=== PATIENT | female | born 1975 | race African-American/Black ===

== ENCOUNTER 2017-05-14 10:53 | Inpatient (IN) | payer BC, MEDICAID ==
[~2017-05-14] VITALS: Ht 152.4 cm; Wt 52.0 kg
[2017-05-14 11:02] VITALS: Ht 152.4 cm; Wt 52.0 kg
--- NOTE | 2017-05-14 11:26 | ERA ---
ER Documentation Chief Complaint Date/Time DATE: 05/14/17 TIME: 11:25 Chief Complaint Lower back pain HPI The patient is a 41-year-old female, presenting to the ER because of low back pain for 2 days, generalized weakness for 2 days, diarrhea for 2 days. She denies hematemesis, hematochezia.. She denies chest pain, shortness of breath, abdominal pain, vomiting, dysuria. She has intermittent cough for the last 2 days. She smokes socially, denies drink or using illicit drug Past medical/surgical history: None ROS All systems reviewed and are negative except as per history of present illness. Medications Home Meds No Active Prescriptions or Reported Meds Allergies Allergies: Coded Allergies: No Known Allergy (Unverified , 05/14/17) PMhx/Soc Medical and Surgical Hx: Unable to obtain Hx Alcohol Use: Yes Hx Substance Use: No Hx Tobacco Use: Yes Smoking Status: Current every day smoker Physical Exam Vitals Vital Signs Date Time Temp Pulse Resp B/P Pulse Ox O2 Delivery O2 Flow Rate FiO2 05/14/17 15:10 98.1 93 20 122/70 88 05/14/17 13:13 98.1 108 20 126/70 88 05/14/17 12:06 3 05/14/17 11:02 98.1 133 20 122/84 88 Physical Exam Const: No acute distress. Head: Atraumatic. Eyes: Normal Conjunctiva. ENT: Normal External Ears, Nose and Mouth. Neck: Full range of motion. No meningismus. Resp: Tachypneic,decreased breath sound on the left lower lungs Cardio: Regular tachycardic Abd: Soft, non distended, normal bowel sounds, non tender. Left CVA tenderness Skin: No petechiae or rashes. Back: No midline or flank tenderness. Ext: No cyanosis, or edema. Neur: Awake and alert. No focal deficit Psych: Normal Mood and Affect. Result Diagram: 05/14/17 1150 05/14/17 1150 Results 24 hrs Laboratory Tests Test 05/14/17 11:50 05/14/17 12:20 White Blood Count 13.310^3/ul Red Blood Count 4.7310^6/ul Hemoglobin 12.9g/dl Hematocrit 41.3% Mean Corpuscular Volume 87.3fl Mean Corpuscular Hemoglobin 27.3pg Mean Corpuscular Hemoglobin Concent 31.2g/dl Red Cell Distribution Width 14.3% Platelet Count 96593^3/UL Mean Platelet Volume 9.6fl Neutrophils % 79.9% Lymphocytes % 10.5% Monocytes % 8.4% Eosinophils % 0.2% Basophils % 0.5% Nucleated Red Blood Cells % 0.0/100WBC Neutrophils # 10.610^3/ul Lymphocytes # 1.410^3/ul Monocytes # 1.110^3/ul Eosinophils # 0.010^3/ul Basophils # 0.110^3/ul Nucleated Red Blood Cells # 0.010^3/ul Prothrombin Time 13.7Sec Prothrombin Time Ratio 1.1 INR International Normalized Ratio 1.05 Activated Partial Thromboplast Time 38.1Sec Sodium Level 139mmol/L Potassium Level 4.4mmol/L Chloride Level 96mmol/L Carbon Dioxide Level 30mmol/L Anion Gap 17 Blood Urea Nitrogen 7mg/dl Creatinine 0.69mg/dl Glucose Level 91mg/dl Lactic Acid Level 2.1mmol/L Calcium Level 9.9mg/dl Total Bilirubin 0.2mg/dl Direct Bilirubin 0.00mg/dl Indirect Bilirubin 0.2mg/dl Aspartate Amino Transf (AST/SGOT) 44IU/L Alanine Aminotransferase (ALT/SGPT) 29IU/L Alkaline Phosphatase 207IU/L Troponin I < 0.012ng/ml Total Protein 8.8g/dl Albumin 4.1g/dl Globulin 4.70g/dl Albumin/Globulin Ratio 0.87 Urine Color YELLOW Urine Clarity SLIGHTLY CLOUDY Urine pH 5.0 Urine Specific [place] 1.004 Urine Ketones 1+mg/dL Urine Nitrite NEGATIVEmg/dL Urine Bilirubin NEGATIVEmg/dL Urine Urobilinogen NEGATIVEmg/dL Urine Leukocyte Esterase 1+Jaden/ul Urine Microscopic RBC 1/HPF Urine Microscopic WBC 5/HPF Urine Squamous Epithelial Cells FEW/HPF Urine Bacteria FEW/HPF Urine Hemoglobin 1+mg/dL Urine Glucose NEGATIVEmg/dL Urine Total Protein NEGATIVEmg/dl Current Medications Medications (Trade) Dose Ordered Sig/Jose Cruz Route PRN Reason Start Time Stop Time Status Last Admin Dose Admin Sodium Chloride 1,610 ml @ 1,610 mls/hr BOLUS X1 ONCE IV 05/14/17 12:00 05/14/17 12:59 DC 05/14/17 12:02 Piperacillin Sod/ Tazobactam Sod 100 ml @ 200 mls/hr ONCE ONCE IVPB 05/14/17 14:00 05/14/17 14:29 DC 05/14/17 14:04 Vancomycin HCl (Vancocin) 250 ml @ 125 mls/hr ONCE IVPB 05/14/17 14:30 05/14/17 16:29 DC 05/14/17 14:35 IV Flush 10 ml 10 ml STK-MED ONCE .ROUTE 05/14/17 15:27 05/14/17 15:28 DC Sodium Chloride 100 ml @ ud STK-MED ONCE .ROUTE 05/14/17 15:27 05/14/17 15:28 DC Iohexol (Omnipaque) 100 ml @ ud STK-MED ONCE .ROUTE 05/14/17 15:27 05/14/17 15:28 DC Lorazepam (Ativan) 0.5 mg ONCE ONCE IV 05/14/17 16:00 05/14/17 16:01 DC 05/14/17 15:51 Procedures/[place] [id number] Radiology Main Line: [phone] DIAGNOSTIC IMAGING REPORT Patient: ERLIN YANCEY : 1975 Age: 41 Sex: F MR #: [id number] DOS: 05/14/17 1133 Ordering MD: MICHELLE GARLAND MD Location: E/R Room/Bed: PROCEDURE: XR Chest. CLINICAL INDICATION: chest pain TECHNIQUE: Single frontal view of the chest was obtained COMPARISON: None FINDINGS: The heart and mediastinum are within normal limits. There are extensive bilateral upper lobe and lower lobe infiltrates. There is a large left pleural effusion and a moderate right pleural effusion. There is no pneumothorax. RPTAT: AA IMPRESSION: Extensive bilateral alveolar infiltrates throughout the lungs. Large left pleural effusion and moderate right pleural effusion. .Florin Montgomery MD, Date Time Electronically viewed and signed by .Florin Montgomery MD, on 05/14/2017 14: 10 .S/ CC: MICHELLE GARLAND MD EKG: Read by emergency physician Rate/Rhythm: Sinus Tachycardia 132 beats/min QRS, ST, T-waves: No ST elevation, no T inversion, low voltage, nonspecific T abnormality Impression: Normal EKG MEDICAL MAKING DECISION: The patient is a 41-year-old female, presenting with acute respiratory failure, acute severe sepsis, acute bilateral pneumonia, acute left pyelonephritis, acute bilateral pleural effusion. She was treated for acute severe sepsis with normosaline 30 mL/kg IV,Zosyn IV, vancomycin IV w/ good response The differential diagnoses considered include but are not limited to asthma, COPD, pneumonia, pulmonary embolus, pleural effusion, congestive heart failure, empyema, malignancy. Admit MDM: Patient's infectious symptoms have not stabilized and the patient is at risk of rapid decompensation. The patient will be admitted for careful hydration, antibiotic therapy, and infectious source control. Severe Sepsis criteria: Infectious source: pna, uti End organ damage indicated by: Lactate > 2.0 mmol/L Acute Resp Failure (sat < 92% w/o oxygen) Sepsis Management: Time of recognition of severe sepsis/septic shock:1:35 pm Within 3 hours of recognition: Blood cultures x 2 before broad-spectrum antibiotics: Yes 30 ml/kg NS bolus completed Initial lactate 2.1 Repeat lactate pending Critical Care: Critical care time 35 minutes excluding billable procedure Emergent fluid management while maintaining close respiratory support. Provision of immediate and broad-spectrum antibiotic therapy. Simultaneous assessment for possible sources in order to direct targeted therapy. Consideration for invasive and chemical support to prevent cardiopulmonary collapse. Septic Shock Assessment: Any lactic acid > 4.0 no Persistent hypotension (SBP < 90 or 40 mmHg drop, MAP < 65) despite 30 mL/kg IV fluid bolusno Departure Diagnosis: Primary Impression: Acute respiratory failure Additional Impressions: Severe sepsis Pyelonephritis Pneumonia Bilateral pleural effusion Condition: Stable Comments I discussed the findings with the patient. I discussed the patient with the on- call hospitalist Dr Hair at 1:40 PM who was made aware of the lab, the treatment, the patient condition. The patient is admitted to [facility] MICHELLE GARALND MD May 14, 2017 11:26
[2017-05-14] MEDS ORDERED: SOD CHLORIDE 0.9% IV ONE (12:00)
[2017-05-14] MEDS ORDERED: PIPER-TAZO 3.375 GM IV (PMX) 100 ML IVPB ONE (14:00)
--- NOTE | 2017-05-14 14:10 | RADRPT ---
PROCEDURE: XR Chest. CLINICAL INDICATION: chest pain TECHNIQUE: Single frontal view of the chest was obtained COMPARISON: None FINDINGS: The heart and mediastinum are within normal limits. There are extensive bilateral upper lobe and lower lobe infiltrates. There is a large left pleural e ffusion and a moderate right pleural effusion. There is no pneumothorax. RPTAT: AA IMPRESSION: Extensive bilateral alveolar infiltrates throughout the lungs. Large left pleural effusion and moderate right pleural effusion. .Florin Montgomery MD, MD Date Time Electronically viewed and signed by .Florin Montgomery MD, on 05/14/2017 14:10 .S/
[2017-05-14] MEDS ORDERED: VANCOMYCIN 1 GM (PMX) 250 ML IVPB SCH (14:30)
[2017-05-14] MEDS ORDERED: IOHEXOL 100 ML ONE (15:27)
[2017-05-14] MEDS ORDERED: SOD CHLORIDE 0.9% 100 ML ONE (15:27)
[2017-05-14] MEDS ORDERED: LORAZEPAM 2 MG INJ IV ONE (16:00)
--- NOTE | 2017-05-14 17:48 | HP ---
Date/Time of Note Date/Time of Note DATE: 05/14/17 TIME: 17:42 Assessment/Plan VTE Prophylaxis VTE Prophylaxis Intervention: SCD's Assessment/Plan Assessment/Plan 41 yo F with no known chronic medical conditions presented with SOB, found to have sepsis (tachycardia + leukocytosis), suspect pulm etiology. PLAN CAP abx with levoflox/azithro check BNP to eval for CHF. trial of lasix given LE edema empiric full ATC, check D Dimer to eval for PE. Consider CT chest tomorrow if pt able to lay flat for study HIV screen given acuity of symptoms NRT DVT prophx HPI/ROS Admit Date/Time Admit Date/Time Hx of Present Illness CC back pain/SOB x 3 days HPI 41 yo F with no known chronic medical problems presents with 3 days of SOB, decreased appetite and bl LBP. Pt denies fevers or chills. Reports fatigue. No chest pain. Also reports some bl LE edema as well Denies any personal hx of asthma or COPD ROS 10p ROS neg except as per HPI PMH/Family/Social Past Medical History Medical History: no pertinent history Social History lives in an apartment, works as a [employer] Smoking Status: Current every day smoker Exam/Review of Systems Vital Signs Vitals Vital Signs Date Time Temp Pulse Resp B/P Pulse Ox O2 Delivery O2 Flow Rate FiO2 05/14/17 17:10 98.1 98 20 136/102 88 05/14/17 12:06 3 Exam Exam anxious, short of breath MMM EOMI lungs with decreased BS inf half of both lungs, +wheezing in bl upper deleon abd soft trace LE edema bl no rashes no CVA tenderness to palpation bl pt localizes her discomfort to bottom of bl ribs CXR personally reviewed, +bl infiltrates and effusions CBC, UA, CMP results reviewed Labs Result Diagram: 05/14/17 1150 05/14/17 1150 Medications Medications Current Medications Furosemide (Lasix) 40 mg BID IV ; Start 05/14/17 at 21:00 Acetaminophen (Tylenol Tab) 650 mg Q6H PRN PO PAIN LEVEL 1-3 OR FEVER; Start 05/14/17 at 18:00; Status UNV Acetaminophen/ Hydrocodone Bitart ([place] (5/325)) 1 tab Q6H PRN PO PAIN LEVEL 4 -6; Start 05/14/17 at 18:00; Status UNV Morphine Sulfate (morphine) 2 mg Q4H PRN IV PAIN LEVEL 7-10; Start 05/14/17 at 18:00; Status UNV Docusate Sodium (Colace) 100 mg Q12H PRN PO CONSTIPATION; Start 05/14/17 at 18 :00; Status UNV Enoxaparin Sodium (Lovenox) 40 mg DAILY SC ; Start 05/15/17 at 09:00; Status UNV KRIS CLAYTON MD May 14, 2017 17:48
[2017-05-14] MEDS ORDERED: NACL 0.9% 3 ML SYG IV SCH (18:00)
[2017-05-14] MEDS ORDERED: morphine 2 MG INJ IV PRN (18:00)
[2017-05-14] MEDS ORDERED: AZITHROMYCIN 250 MG TAB PO ONE (18:00)
[2017-05-14] MEDS ORDERED: NICOTINE POLACRILEX 2 MG GUM BUCCAL PRN (18:00)
[2017-05-14] MEDS: CEFTRIAXONE 1 GM/50 ML (PMX) 50 ML IV SCH (18:33)
[2017-05-14] MEDS: ONDANSETRON 4 MG INJ IV PRN (20:45)
[2017-05-14 21:00] VITALS: TEMP 98.1
[2017-05-14] MEDS ORDERED: FUROSEMIDE 40 MG INJ IV SCH (21:00)
[2017-05-14] MEDS: ENOXAPARIN 100 MG/ML SYG SC SCH (21:00)
[2017-05-14] MEDS: ZOLPIDEM 5 MG TAB PO PRN (22:57)
[2017-05-14 23:44] VITALS: PULSE 140
[2017-05-15] VITALS (12 sets, daily range): BP systolic 106–123; BP diastolic 56–83; PULSE 127–140; RESP 18–21
[2017-05-15] MEDS: ACETAMINOPHEN 325 MG TAB PO PRN ×4 (00:11→19:44)
[2017-05-15] MEDS ORDERED: SOD CHLORIDE 0.9% 500 ML IV ONE (01:00)
[2017-05-15] MEDS: AZITHROMYCIN 250 MG TAB PO SCH (08:40)
[2017-05-15] MEDS: ENOXAPARIN 100 MG/ML SYG SC SCH (08:42)
[2017-05-15] MEDS ORDERED: ENOXAPARIN 40 MG/0.4 ML SYG SC SCH (09:00)
[2017-05-15] MEDS ORDERED: SOD CHLORIDE 0.9% 100 ML ONE (10:27)
[2017-05-15] MEDS ORDERED: IOHEXOL 100 ML ONE (10:27)
--- NOTE | 2017-05-15 12:14 | RADRPT ---
PROCEDURE: CTA Chest with IV contrast. CLINICAL INDICATION: Chest pain and shortness of breath. TECHNIQUE: The study was performed utilizing a multidetector CT scanner. Direct spiral axial secti ons were obtained from the thoracic inlet through the upper abdomen before and after the injection o f 100 cc Omnipaque 350 intravenous contrast material and reformatted at 1.25 mm. 3D, coronal and sag ittal reformations were obtained. The images were reviewed on a PACS workstation. DLP = 687.0 mGy-c m.CTDiVol = 218.3, 17.3 mGy. One or more of the following post reduction techniques were used: - Automated exposure control. - Adjustment of the mA and/or Kv according to patient's size. - Use of iterative reconstruction technique COMPARISON: No prior studies are available for comparison. FINDINGS: No pulmonary arterial filling defects to indicate pulmonary embolus are identified. Heart size is within normal limits. No hilar or mediastinal lymphadenopathy is identified. The vis ualized portions of the inferior thyroid appear unremarkable. The arterial vasculature of the medias tinum appears normal. The thoracic esophagus appears normal. Large bilateral pleural effusions are identified. Associated complete atelectasis/consolidation of t he left lower lobe is identified. Scattered ground-glass opacity mixed with patchy areas of consolid ation are identified in the left upper lobe. Perihilar consolidation is identified in the right middle and lower lobes. Patchy ground-glass opaci ty mixed with scattered areas of consolidation are identified throughout the remainder of the right lung. The visualized organs of the superior abdomen are grossly unremarkable. Lytic lesions are identified in the C2 C6, C7 T4 T10, T12, L1 and L2 vertebral bodies. Severe compre ssion fracture of the C5 vertebral body is identified. Mild compression fracture of the superior end plates of T10 and L2 are observed. Additional rounded lytic lesion is identified in the inferior asp ect of the sternum and in the sternum, adjacent to the left sternoclavicular joint. Lytic lesions ar e identified in the anterior right second rib diffuse skin thickening is identified over the right b reast. A potential 4.0 x 2.3 cm masses noted in the right breast. Multiple prominent lymph nodes are identi fied in the right axilla. The largest measures up to 1.4 x 1.8 cm. IMPRESSION: No visualized pulmonary embolus. Large bilateral pleural effusions. Complete atelectasis/consolidation of the left lower lobe and perihilar consolidation in the right m iddle and lower lobes, with ground-glass opacity in scattered areas of lesser consolidation througho ut the remainder of the lungs. Findings could be the sequelae of fluid overload and pulmonary edema or multifocal infection/pneumonia. Potential 4.0 cm mass in the right breast with overlying skin thickening. Finding raises high suspic ion for right breast cancer. Multiple prominent lymph nodes in the right axilla. Finding may reflect metastatic disease. Scattered lytic lesions throughout the spine with additional lytic lesions seen in the anterior righ t second rib and sternum. Finding suggest metastatic disease. Compression fractures of the C5, T10 and L2 vertebral bodies. These likely reflect a pathologic comp ression fractures. Call report: A call report of the findings was made to the patient's nurse, Dorota, at 11:54 AM o n 05/15/2017 . RPTAT: AA .Dillan Garcia MD, Date Time Electronically viewed and signed by .Dillan Garcia MD, on 05/15/2017 12:14 .P/
--- NOTE | 2017-05-15 13:23 | PN ---
Date/Time of Note Date/Time of Note DATE: 05/15/17 TIME: 13:20 Assessment/Plan VTE Prophylaxis VTE Prophylaxis Intervention: SCD's Lines/Catheters IV Catheter Type (from Nrs): Saline Lock Assessment/Plan Assessment/Plan 41 yo F with no known chronic medical conditions presented with hypoxia, found to have R breast mass with pleural effusion concerning for advanced breast Ca. -US guided core breast biopsy ordered -thora orded with cytology -onc consulted -cont abx for CAP coverage. anticipate 5-7 days of therapy -change LMWH dosing back to just DVT prophx as no PE -pain and anxiety control Subjective 24 Hr Interval Summary Free Text/Dictation CT results discussed with patient. Pt reports she had thought "something" was wrong for the past few mos but hadn't sought medical attention as she didn't have health insurance. Exam/Review of Systems Vital Signs Vitals Vital Signs Date Time Temp Pulse Resp B/P Pulse Ox O2 Delivery O2 Flow Rate FiO2 05/15/17 12:41 127 05/15/17 11:32 98.6 18 113/76 96 05/15/17 08:10 3.5 05/14/17 22:37 Nasal Cannula Intake and Output 05/14/17 05/14/17 05/15/17 15:00 23:00 07:00 Intake Total 720 ml Balance 720 ml Exam thin no mrg dec breath sounds throughout abd soft no rashes no edema CTA neg for PE, + for R breast mass with axillary LAD, pleural effusion and likely bone mets Results Result Diagram: 05/15/17 0607 05/15/17 0612 Results 24 hrs Laboratory Tests Test 05/14/17 20:50 05/14/17 23:39 05/15/17 06:07 05/15/17 06:12 Lactic Acid Level 2.3 *H 3.0 *H 1.4 White Blood Count 17.6 #H Red Blood Count 4.60 Hemoglobin 12.7 Hematocrit 40.9 Mean Corpuscular Volume 88.9 Mean Corpuscular Hemoglobin 27.6 L Mean Corpuscular Hemoglobin Concent 31.1 L Red Cell Distribution Width 14.3 Platelet Count 709 H Mean Platelet Volume 9.3 Neutrophils % 87.7 H Lymphocytes % 5.8 L Monocytes % 6.0 Eosinophils % 0.0 Basophils % 0.2 Nucleated Red Blood Cells % 0.0 Neutrophils # 15.5 H Lymphocytes # 1.0 Monocytes # 1.1 H Eosinophils # 0.0 Basophils # 0.0 Nucleated Red Blood Cells # 0.0 D-Dimer > 45664.00 H Sodium Level 139 Potassium Level 4.7 Chloride Level 96 L Carbon Dioxide Level 32 H Anion Gap 16 Blood Urea Nitrogen 7 Creatinine 0.67 Glucose Level 108 Calcium Level 9.8 Total Bilirubin 0.1 L Direct Bilirubin 0.00 Indirect Bilirubin 0.1 Aspartate Amino Transf (AST/SGOT) 42 Alanine Aminotransferase (ALT/SGPT) 30 Alkaline Phosphatase 202 H B-Type Natriuretic Peptide 303 H Total Protein 9.0 H Albumin 3.8 Globulin 5.20 H Albumin/Globulin Ratio 0.73 HIV (1&2) Antibody NEGATIVE Medications Medications Current Medications Acetaminophen (Tylenol Tab) 650 mg Q6H PRN PO PAIN LEVEL 1-3 OR FEVER Last administered on 05/15/17 07:57; Admin Dose 650 MG; Start 05/14/17 at 18:00 Acetaminophen/ Hydrocodone Bitart ([place] (5/325)) 1 tab Q6H PRN PO PAIN LEVEL 4 -6; Start 05/14/17 at 18:00 Morphine Sulfate (morphine) 2 mg Q4H PRN IV PAIN LEVEL 7-10; Start 05/14/17 at 18:00 Docusate Sodium 100 mg 100 mg Q12H PRN PO CONSTIPATION; Start 05/14/17 at 18: 00 Ceftriaxone Sodium (Rocephin) 50 ml @ 100 mls/hr Q24H IV Last administered on 05/14/17 18:33; Admin Dose 100 MLS/HR; Start 05/14/17 at 18:00 Azithromycin (Zithromax) 250 mg DAILY PO Last administered on 05/15/17 08:40 ; Admin Dose 250 MG; Start 05/15/17 at 09:00; Stop 05/20/17 at 08:59 Nicotine Polacrilex ([place]oret[place]) 2 mg Q2H PRN BUCCAL agitation; Start 05/14/17 at 18:00 Ondansetron HCl (Zofran Inj) 4 mg Q4 PRN IV NAUSEA AND/OR VOMITING Last administered on 05/14/17 20:45; Admin Dose 4 MG; Start 05/14/17 at 20:30 Zolpidem Tartrate (Ambien) 5 mg HS PRN PO INSOMNIA Last administered on t 22:57; Admin Dose 5 MG; Start 05/14/17 at 22:30 Enoxaparin Sodium (Lovenox) 40 mg DAILY SC ; Start 05/16/17 at 09:00 KRIS CLAYTON MD May 15, 2017 13:23
[2017-05-15] MEDS: HYDROCODONE/APAP (5/325) TAB PO PRN (14:27)
[2017-05-15] MEDS: CEFTRIAXONE 1 GM/50 ML (PMX) 50 ML IV SCH (18:37)
[2017-05-16] VITALS (12 sets, daily range): BP systolic 100–114; BP diastolic 69–83; PULSE 110–130; RESP 18–19
[2017-05-16] MEDS: HYDROCODONE/APAP (5/325) TAB PO PRN ×2 (00:10→12:05)
[2017-05-16] MEDS: ZOLPIDEM 5 MG TAB PO PRN (00:10)
[2017-05-16] MEDS: ACETAMINOPHEN 325 MG TAB PO PRN ×2 (05:04→16:08)
[2017-05-16] MEDS: ENOXAPARIN 40 MG/0.4 ML SYG SC SCH (09:00)
[2017-05-16] MEDS: AZITHROMYCIN 250 MG TAB PO SCH (09:13)
[2017-05-16] MEDS ORDERED: LIDOCAINE 1% (MPF) 5 ML VIAL ONE (10:10)
--- NOTE | 2017-05-16 10:15 | RADRPT ---
PROCEDURE: Ultrasound guided thoracentesis CLINICAL INDICATION: Pleural fluid TECHNIQUE: Multiple sonographic images were obtained through the patient's chest. A site in the p tony's RIGHT lower chest was selected and marked. The area was prepped and draped in the usual tito rile fashion. 1% lidocaine was utilized. A 19-gauge Yueh needle was advanced into the pleural space and the introducer was connected to a vacuum drainage system. A total of 920 cc of clear yellow fl uid were drained at the end of the procedure. The patient tolerated the procedure well. The specimen was sent for laboratory evaluation. RPTAT: AA COMPARISON: None FINDINGS: Pleural effusion. RPTAT: AA IMPRESSION: Uncomplicated ultrasound-guided thoracentesis. .Florin Montgomery MD, Date Time Electronically viewed and signed by .Florin Montgomery MD, MD on 05/16/2017 10:15 .S/
--- NOTE | 2017-05-16 10:26 | RADRPT ---
PROCEDURE: XR Chest. CLINICAL INDICATION: Status post thoracentesis TECHNIQUE: Single portable view of the chest was obtained COMPARISON: Yesterday FINDINGS: There is decreased right pleural effusion. There is a small residual right pleural effusion. There is a right lower lobe lung mass is consolidation. There is a nvtrlgqy-ux-nojid left pleural effusion. The heart is normal in size. The heart, lungs and mediastinum are otherwise unchanged. There is no evidence of pneumothorax statu s post thoracentesis. RPTAT:AA IMPRESSION: Decreased right pleural effusion with small residual right pleural effusion. Moderate to large left pleural effusion. Right lower lobe lung mass/consolidation. Continued follow-up is recommended. No pneumothorax status post thoracentesis. .Florin Montgomery MD, MD Date Time Electronically viewed and signed by .Florin Montgomery MD, MD on 05/16/2017 10:26 .S/
--- NOTE | 2017-05-16 10:26 | RADRPT ---
PROCEDURE: XR Chest. CLINICAL INDICATION: Status post thoracentesis TECHNIQUE: Single portable view of the chest was obtained COMPARISON: Yesterday FINDINGS: There is decreased right pleural effusion. There is a small residual right pleural effusion. There is a right lower lobe lung mass is consolidation. There is a gfnljhgv-hx-migch left pleural effusion. The heart is normal in size. The heart, lungs and mediastinum are otherwise unchanged. There is no evidence of pneumothorax statu s post thoracentesis. RPTAT:AA IMPRESSION: Decreased right pleural effusion with small residual right pleural effusion. Moderate to large left pleural effusion. Right lower lobe lung mass/consolidation. Continued follow-up is recommended. No pneumothorax status post thoracentesis. .Florin Montgomery MD, MD Date Time Electronically viewed and signed by .Florin Montgomery MD, MD on 05/16/2017 10:26 .S/
--- NOTE | 2017-05-16 12:04 | RADRPT ---
PROCEDURE: XR Chest. CLINICAL INDICATION: Status post thoracentesis TECHNIQUE: Single portable view of the chest was obtained COMPARISON: Same day FINDINGS: The heart, lungs and mediastinum are otherwise unchanged. There is no evidence of pneumothorax stat us post thoracentesis. RPTAT:AA IMPRESSION: No pneumothorax status post thoracentesis. There is a wjudpheg-op-lanef left pleural effusion. There is a small to moderate right pleural effusion. Right lower lobe consolidation/mass. .Florin Montgomery MD, Date Time Electronically viewed and signed by .Florin Montgomery MD, on 05/16/2017 12:04 .S/
--- NOTE | 2017-05-16 12:04 | RADRPT ---
PROCEDURE: XR Chest. CLINICAL INDICATION: Status post thoracentesis TECHNIQUE: Single portable view of the chest was obtained COMPARISON: Same day FINDINGS: The heart, lungs and mediastinum are otherwise unchanged. There is no evidence of pneumothorax stat us post thoracentesis. RPTAT:AA IMPRESSION: No pneumothorax status post thoracentesis. There is a oephxobh-sh-lvyog left pleural effusion. There is a small to moderate right pleural effusion. Right lower lobe consolidation/mass. .Florin Montgomery MD, Date Time Electronically viewed and signed by .Florin Montgomery MD, on 05/16/2017 12:04 .S/
--- NOTE | 2017-05-16 12:56 | PN ---
Date/Time of Note Date/Time of Note DATE: 05/16/17 TIME: 12:55 Assessment/Plan VTE Prophylaxis VTE Prophylaxis Intervention: SCD's Lines/Catheters IV Catheter Type (from Nrsg): Saline Lock Assessment/Plan Assessment/Plan 41 yo F with no known chronic medical conditions presented with hypoxia, found to have R breast mass with pleural effusion concerning for advanced breast Ca. -US guided core breast biopsy ordered -thora with exudative effusion, more likely cancer than infection. cytology pending -onc consulted -cont abx for CAP coverage. anticipate 7 days of therapy -pain and anxiety control DVT prophx Subjective 24 Hr Interval Summary Free Text/Dictation pt at thora at time of my attempted eval Exam/Review of Systems Vital Signs Vitals Vital Signs Date Time Temp Pulse Resp B/P Pulse Ox O2 Delivery O2 Flow Rate FiO2 05/16/17 12:46 130 05/16/17 12:05 98.4 19 109/76 98 05/16/17 08:15 4.0 05/14/17 22:37 Nasal Cannula Intake and Output 05/15/17 05/15/17 05/16/17 15:00 23:00 07:00 Intake Total 800 ml 420 ml Balance 800 ml 420 ml Exam pt at thora at time of my attempted eval thora reviewed, high protein-->exudative Results Result Diagram: 05/15/17 0607 05/15/17 0612 Results 24 hrs Laboratory Tests Test 05/16/17 10:00 Body Fluid Type THORACENTESIS FLUID Body Fluid Glucose 113 Body Fluid Total Protein 5.3 Body Fluid Lactate Dehydrogenase Medications Medications Current Medications Acetaminophen (Tylenol Tab) 650 mg Q6H PRN PO PAIN LEVEL 1-3 OR FEVER Last administered on 05/16/17 05:04; Admin Dose 650 MG; Start 05/14/17 at 18:00 Acetaminophen/ Hydrocodone Bitart ([place] (5/325)) 1 tab Q6H PRN PO PAIN LEVEL 4 -6 Last administered on 05/16/17 12:05; Admin Dose 1 TAB; Start 05/14/17 at 18:00 Morphine Sulfate (morphine) 2 mg Q4H PRN IV PAIN LEVEL 7-10; Start 05/14/17 at 18:00 Docusate Sodium 100 mg 100 mg Q12H PRN PO CONSTIPATION; Start 05/14/17 at 18: 00 Ceftriaxone Sodium (Rocephin) 50 ml @ 100 mls/hr Q24H IV Last administered on 05/15/17 18:37; Admin Dose 100 MLS/HR; Start 05/14/17 at 18:00; Stop at 17:59 Azithromycin (Zithromax) 250 mg DAILY PO Last administered on 05/16/17 09:13 ; Admin Dose 250 MG; Start 05/15/17 at 09:00; Stop 05/21/17 at 08:59 Nicotine Polacrilex (Nicorette) 2 mg Q2H PRN BUCCAL agitation; Start 05/14/17 at 18:00 Ondansetron HCl (Zofran Inj) 4 mg Q4 PRN IV NAUSEA AND/OR VOMITING Last administered on 05/14/17 20:45; Admin Dose 4 MG; Start 05/14/17 at 20:30 Zolpidem Tartrate (Ambien) 5 mg HS PRN PO INSOMNIA Last administered on 00:10; Admin Dose 5 MG; Start 05/14/17 at 22:30 Enoxaparin Sodium (Lovenox) 40 mg DAILY SC ; Start 05/16/17 at 09:00 KRIS CLAYTON MD May 16, 2017 12:56
[2017-05-16] MEDS ORDERED: FUROSEMIDE 20 MG TAB PO ONE (16:00)
[2017-05-16] MEDS: LORAZEPAM 1 MG TAB PO PRN (16:08)
[2017-05-16] MEDS: CEFTRIAXONE 1 GM/50 ML (PMX) 50 ML IV SCH (17:53)
[2017-05-17] VITALS (12 sets, daily range): BP systolic 99–115; BP diastolic 61–71; PULSE 112–131; RESP 18–20
[2017-05-17] MEDS: ACETAMINOPHEN 325 MG TAB PO PRN (01:18)
--- NOTE | 2017-05-17 06:39 | CONS ---
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 Also will add on low-dose OxyContin controlled release. Bowel regimen will be started suggest RT consultation. Consultation Date/Type/Reason Admit Date/Time Type of Consultation: Pain management Hx of Present Illness This is a 41-year-old female without a past medical history of major medical problems who presented to [facility] emergency room with increasing shortness of breath. During workup she was found to have a breast mass biopsy with preliminary report of malignancy. Patient has been complaining of increasing back pain primarily her upper thoracic spine rated 5/ 10. She denies pain radiating into her arms or anterior chest wall or down into her lower back, she states the pain is an electric shock type of discomfort. She is not nauseous associated with the pain with current pain control medication she still has discomfort which causes her sleepless nights. Pain has not been increasing in severity since she has been hospitalized, pain began approximately 3 days prior. Pain affects her physical functioning mood and sleeping patterns so much so she is forced to sit up at night secondary to pain and shortness of breath. With the pain she is not complaining of nausea vomiting itching until cloudiness sweating fatigue or drowsiness. She states she is fearful and taking morphine that she may become nauseous therefore she is only taking her p.o. medications which is [place]. There is no past medical history of opioid use she has been using only nonsteroidal anti-inflammatory medications prior to hospitalization. There is no past medical history of alcohol consumption or drug use, altercation with police or motor vehicle accidents. Patient has not asked for early renewals of her medications currently prescribed. Also she is not using current medications and response to situational stressors. Patient's overall severity of the pain is moderate although clinically she appears to be very uncomfortable. Constitutional: other (Weight loss), poor po Respiratory: pleuritic pain, shortness of breath Cardiovascular: no complaints, No chest pain, No edema, No lightheadedness, No orthopenea, No other, No palpitations, No paroxysmal nocturnal dyspnea Gastrointestinal: no complaints, No blood, No constipation, No decreased appetite, No diarrhea, No flatus, No nausea, No other, No pain, No passing stool, No vomiting Musculoskeletal: other (Refer to history of present illness) Neurologic: no complaints, No confusion, No dizziness, No focal-weakness, No headache, No other, No seizure, No syncope Past Medical History Medical History: no pertinent history Social History Smoking Status: Current every day smoker Exam/Review of Systems Vital Signs Vitals Vital Signs Date Time Temp Pulse Resp B/P Pulse Ox O2 Delivery O2 Flow Rate FiO2 05/17/17 04:34 112 05/17/17 04:12 98.3 18 109/64 100 05/17/17 00:04 3.0 05/14/17 22:37 Nasal Cannula Intake and Output 05/16/17 05/16/17 05/17/17 15:00 23:00 07:00 Intake Total 200 ml Balance 200 ml Exam Constitutional: alert, distress, oriented, well developed Psych: nl mood/affect, no complaints, No anxiety, No confusion, No depression, No other, No suicidal Head: atraumatic, normocephalic, No hematomas, No lacerations, No other Neck: non-tender, supple, No bruits, No jvd, No masses, No nuchal rigidity, No other, No thyromegaly Respiratory: other (Decreased breath sounds left side greater than right, without rales rhonchi wheezing rubs) Cardiovascular: nl pulses, regular rate and rhythm, No S3, No S4, No bruits, No diastolic murmur, No edema, No gallop, No irregular rhythm, No jugular venous distention (JVD), No murmurs/extra sounds, No other, No rub, No systolic murmur Neurological: 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, nl mental status, nl speech, nl strength, No DTR's symmetric, No confused, No focal weakness, No lethargic, No numbness , No other, No reflexes, No unresponsive Results Result Diagram: 05/15/17 0607 05/15/17 0612 Results 24 hrs Laboratory Tests Test 05/16/17 10:00 Pathologist Review (Hematology) YES Body Fluid Type THORACENTESIS FLUID Body Fluid Volume 950.0 Body Fluid Color YELLOW Body Fluid Appearance CLOUDY Body Fluid WBC 1905 Body Fluid RBC (Auto) 12 Body Fluid Polynuclear WBCs (%) Body Fluid Mononuclear Cells % Auto Body Fluid Glucose 113 Body Fluid Total Protein 5.3 Body Fluid Lactate Dehydrogenase Medications Medications Current Medications Acetaminophen (Tylenol Tab) 650 mg Q6H PRN PO PAIN LEVEL 1-3 OR FEVER Last administered on 05/17/17 01:18; Admin Dose 650 MG; Start 05/14/17 at 18:00 Acetaminophen/ Hydrocodone Bitart ([place] (5/325)) 1 tab Q6H PRN PO PAIN LEVEL 4 -6 Last administered on 05/16/17 12:05; Admin Dose 1 TAB; Start 05/14/17 at 18:00 Morphine Sulfate (morphine) 2 mg Q4H PRN IV PAIN LEVEL 7-10; Start 05/14/17 at 18:00 Docusate Sodium 100 mg 100 mg Q12H PRN PO CONSTIPATION; Start 05/14/17 at 18: 00 Ceftriaxone Sodium (Rocephin) 50 ml @ 100 mls/hr Q24H IV Last administered on 05/16/17 17:53; Admin Dose 100 MLS/HR; Start 05/14/17 at 18:00; Stop at 17:59 Azithromycin (Zithromax) 250 mg DAILY PO Last administered on 05/16/17 09:13 ; Admin Dose 250 MG; Start 05/15/17 at 09:00; Stop 05/21/17 at 08:59 Nicotine Polacrilex (Nicorette) 2 mg Q2H PRN BUCCAL agitation; Start 05/14/17 at 18:00 Ondansetron HCl (Zofran Inj) 4 mg Q4 PRN IV NAUSEA AND/OR VOMITING Last administered on 05/14/17 20:45; Admin Dose 4 MG; Start 05/14/17 at 20:30 Zolpidem Tartrate (Ambien) 5 mg HS PRN PO INSOMNIA Last administered on 00:10; Admin Dose 5 MG; Start 05/14/17 at 22:30 Enoxaparin Sodium (Lovenox) 40 mg DAILY SC ; Start 05/16/17 at 09:00 Lorazepam (Ativan) 1 mg Q6H PRN PO ANXIETY Last administered on 05/16/17 16: 08; Admin Dose 1 MG; Start 05/16/17 at 15:30 BRIANDA HERNANDEZ May 17, 2017 06:39
[2017-05-17] MEDS: HYDROmorphONE 1 MG/ML SYG IV PRN (06:52)
[2017-05-17] MEDS: ENOXAPARIN 40 MG/0.4 ML SYG SC SCH (09:00)
[2017-05-17] MEDS ORDERED: LIDOCAINE 1% (MPF) 5 ML VIAL ONE (09:49)
--- NOTE | 2017-05-17 10:13 | RADRPT ---
PROCEDURE: Ultrasound-guided core biopsy of the right breast. CLINICAL INDICATION: 41-year-old female with 5 cm exophytic fungating right breast mass. TECHNIQUE: The patient was informed of the benefits and risks of the procedure and signed consent w as obtained. Risks included bleeding, infection and insufficient sampling. The breast was sterilely prepped and draped and local anesthesia with 1% lidocaine was administered. A 17-gauge sheath and stylet was advanced to the margin of the lesion. Through the sheath, three passes with a 18-gauge s pring-loaded core biopsy needle was performed. Hemostasis was achieved with manual compression and cold pack placement. Core specimens were placed in fixative and sent to pathology for evaluation. The patient tolerated procedure well and there were no complications. The patient left the [facility] in stable condition. COMPARISON: None FINDINGS: Procedural images showing needle biopsy passes through the lesion. IMPRESSION: Ultrasound-guided coaxial 17/18 gauge needle core biopsy of exophytic 5 cm fungating right breast ma ss. Pathology pending. RPTAT: QQ .Braxton Bell MD, MD Date Time Electronically viewed and signed by .Braxton Bell MD, MD on 05/17/2017 10:13 .L/
--- NOTE | 2017-05-17 10:13 | RADRPT ---
PROCEDURE: Ultrasound-guided core biopsy of the right breast. CLINICAL INDICATION: 41-year-old female with 5 cm exophytic fungating right breast mass. TECHNIQUE: The patient was informed of the benefits and risks of the procedure and signed consent w as obtained. Risks included bleeding, infection and insufficient sampling. The breast was sterilely prepped and draped and local anesthesia with 1% lidocaine was administered. A 17-gauge sheath and stylet was advanced to the margin of the lesion. Through the sheath, three passes with a 18-gauge s pring-loaded core biopsy needle was performed. Hemostasis was achieved with manual compression and cold pack placement. Core specimens were placed in fixative and sent to pathology for evaluation. The patient tolerated procedure well and there were no complications. The patient left the [facility] in stable condition. COMPARISON: None FINDINGS: Procedural images showing needle biopsy passes through the lesion. IMPRESSION: Ultrasound-guided coaxial 17/18 gauge needle core biopsy of exophytic 5 cm fungating right breast ma ss. Pathology pending. RPTAT: QQ .Braxton Bell MD, MD Date Time Electronically viewed and signed by .Braxton Bell MD, MD on 05/17/2017 10:13 .L/
[2017-05-17] MEDS: SENNA/DOCUSATE NA (8.6MG/50MG) TAB PO SCH (13:07)
[2017-05-17] MEDS: AZITHROMYCIN 250 MG TAB PO SCH (13:07)
[2017-05-17] MEDS: oxyCODONE (CR) 10 MG TAB [oxyCONTIN] PO SCH ×2 (13:08→21:23)
--- NOTE | 2017-05-17 14:11 | PN ---
Date/Time of Note Date/Time of Note DATE: 05/17/17 TIME: 14:09 Assessment/Plan VTE Prophylaxis VTE Prophylaxis Intervention: SCD's Lines/Catheters IV Catheter Type (from Nrsg): Saline Lock Assessment/Plan Assessment/Plan 41 yo F with no known chronic medical conditions presented with hypoxia, found to have R breast mass with pleural effusion concerning for advanced breast Ca. -US guided core breast biopsy done today, path pending. -thora with exudative effusion, more likely cancer than infection. cytology pending (prelim malignant per path) thora ordered for OTHER lung for symptomatic relief -onc on consult, palliative on consult -RT consult per palliative rec -cont abx for CAP coverage. anticipate 7 days of therapy -pain and anxiety control -ss consult DVT prophx Subjective 24 Hr Interval Summary Free Text/Dictation sleeping in room after breast biopsy earlier today Exam/Review of Systems Vital Signs Vitals Vital Signs Date Time Temp Pulse Resp B/P Pulse Ox O2 Delivery O2 Flow Rate FiO2 05/17/17 12:35 131 05/17/17 12:01 98.5 19 115/69 99 05/17/17 08:00 4.0 05/14/17 22:37 Nasal Cannula Intake and Output 05/16/17 05/16/17 05/17/17 15:00 23:00 07:00 Intake Total 200 ml Balance 200 ml Exam at side of bed, sleeping, leaning over tray table resp nonlabored no abd distension no edema no rashes Results Result Diagram: 05/15/17 0607 05/15/17 0612 Medications Medications Current Medications Acetaminophen (Tylenol Tab) 650 mg Q6H PRN PO PAIN LEVEL 1-3 OR FEVER Last administered on 05/17/17 01:18; Admin Dose 650 MG; Start 05/14/17 at 18:00 Docusate Sodium 100 mg 100 mg Q12H PRN PO CONSTIPATION; Start 05/14/17 at 18: 00 Ceftriaxone Sodium (Rocephin) 50 ml @ 100 mls/hr Q24H IV Last administered on 05/16/17 17:53; Admin Dose 100 MLS/HR; Start 05/14/17 at 18:00; Stop at 17:59 Azithromycin (Zithromax) 250 mg DAILY PO Last administered on 05/17/17 13:07 ; Admin Dose 250 MG; Start 05/15/17 at 09:00; Stop 05/21/17 at 08:59 Nicotine Polacrilex (Nicorette) 2 mg Q2H PRN BUCCAL agitation; Start 05/14/17 at 18:00 Ondansetron HCl (Zofran Inj) 4 mg Q4 PRN IV NAUSEA AND/OR VOMITING Last administered on 05/14/17 20:45; Admin Dose 4 MG; Start 05/14/17 at 20:30 Enoxaparin Sodium (Lovenox) 40 mg DAILY SC ; Start 05/16/17 at 09:00 Lorazepam (Ativan) 1 mg Q6H PRN PO ANXIETY Last administered on 05/16/17 16: 08; Admin Dose 1 MG; Start 05/16/17 at 15:30 Hydromorphone HCl (Dilaudid) 1 mg Q3 PRN IV PAIN LEVEL 6-10 Last administered on 05/17/17 06:52; Admin Dose 1 MG; Start 05/17/17 at 06:30 Hydromorphone HCl (Dilaudid) 2 mg Q4H PRN PO PAIN LEVEL 1-5; Start 05/17/17 at 06:30 Oxycodone HCl (Oxycontin) 10 mg BID PO Last administered on 05/17/17 13:08; Admin Dose 10 MG; Start 05/17/17 at 09:00 Trazodone HCl (Desyrel) 25 mg HS PO ; Start 05/17/17 at 21:00 Senna/Docusate Sodium (Senokot-S) 1 tab AM PO Last administered on 05/17/17 13:07; Admin Dose 1 TAB; Start 05/17/17 at 09:00 KRIS CLAYTON MD May 17, 2017 14:11
[2017-05-17] MEDS: CEFTRIAXONE 1 GM/50 ML (PMX) 50 ML IV SCH (18:36)
[2017-05-17] MEDS: traZODone 50 MG TAB PO SCH (21:22)
--- NOTE | 2017-05-17 22:51 | CONS ---
Date/Time of Note Date/Time of Note DATE: 05/17/17 TIME: 22:32 Assessment/Plan Assessment/Plan Chief Complaint/Hosp Course 41 yo with Impression: # 4cm R Breast Mass with right axillary lymphadenopathy #Large Bilateral Pleural Effusions #Lytic Lesions wit compression fractures at C5, T10 and L2 #Pneumonia-pt with elevated lactate Plan: -f/u cytology from Thoracentesis fluid -agree with breast bx incase cytology does not allow us to perform all immunostains -further recommendation for cancer therapy will depend on results of biopsy -once we have confirmed cancer, we can also get an opinion from RAD ONC on the role for radiation of the symptomatic compression fractures -continue antibiotics Azithromycin and Ceftriaxone in case of underlying pneumonia Problems: Consultation Date/Type/Reason Admit Date/Time 05/14/17 Date of Consultation: May 17, 2017 Type of Consultation: Oncology Reason for Consultation metastatic cancer of unknown primary Referring Provider: KRIS CLAYTON MD Hx of Present Illness 41 yo F with no significant PMH who presents with 3 days of back pain, feeling "dehydrated", decreased appetite and shorteness of breath. 05/15/17: CT Angio of Chest was done which demonstrated: 1) large bilateral pleural effusions.2)Complete atelectasis/consolidation of the left lower lobe and perihilar consolidation in the right middle and lower lobes consistent with multifocal pneumonia. 3) 4.0 cm mass in the right breast with overlying skin thickening and axillary adenopathy 4)Scattered lytic lesions throughout the spine with additional lytic lesions seen in the anterior right second rib and sternum Given the high suspicion for metastatic disease, namely breast cancer, we have been called for further workup. Pt has since had a thoracentesis done . She is scheduled for a biopsy of the breast mass. Constitutional: other (Weight loss), poor po Respiratory: pleuritic pain, shortness of breath Cardiovascular: no complaints, No chest pain, No edema, No lightheadedness, No orthopenea, No other, No palpitations, No paroxysmal nocturnal dyspnea Gastrointestinal: no complaints, No blood, No constipation, No decreased appetite, No diarrhea, No flatus, No nausea, No other, No pain, No passing stool, No vomiting Musculoskeletal: back pain, bone/joint pain, other (Refer to history of present illness) Neurologic: headache, no complaints, No confusion, No dizziness, No focal-weakness, No other, No seizure, No syncope Psychological: nl mood/affect, no complaints, No anxiety, No confusion, No depression, No other, No suicidal Past Medical History Medical History: no pertinent history Family History Significant Family History: other (grandmother with stomach cancer) Social History Smoking Status: Current every day smoker (15 years 1/2 ppd) Exam/Review of Systems Vital Signs Vitals Vital Signs Date Time Temp Pulse Resp B/P Pulse Ox O2 Delivery O2 Flow Rate FiO2 05/17/17 22:14 3.0 05/17/17 20:14 98.0 125 18 100/63 98 05/14/17 22:37 Nasal Cannula Intake and Output 05/16/17 05/16/17 05/17/17 15:00 23:00 07:00 Intake Total 200 ml Balance 200 ml Exam Constitutional: alert, distress Psych: depression Head: normocephalic Eyes: nl conjunctiva ENMT: nl external ears & nose Neck: non-tender, supple Respiratory: crackles/rales, diminished breath sounds Cardiovascular: other (sinus tachycardia) Gastrointestinal: soft Musculoskeletal: muscle weakness Extremities: normal pulses Results Result Diagram: 05/15/17 0607 05/15/17 0612 Medications Medications Current Medications Acetaminophen (Tylenol Tab) 650 mg Q6H PRN PO PAIN LEVEL 1-3 OR FEVER Last administered on 05/17/17 01:18; Admin Dose 650 MG; Start 05/14/17 at 18:00 Docusate Sodium 100 mg 100 mg Q12H PRN PO CONSTIPATION; Start 05/14/17 at 18: 00 Ceftriaxone Sodium (Rocephin) 50 ml @ 100 mls/hr Q24H IV Last administered on 05/17/17 18:36; Admin Dose 100 MLS/HR; Start 05/14/17 at 18:00; Stop at 17:59 Azithromycin (Zithromax) 250 mg DAILY PO Last administered on 05/17/17 13:07 ; Admin Dose 250 MG; Start 05/15/17 at 09:00; Stop 05/21/17 at 08:59 Nicotine Polacrilex (Nicorette) 2 mg Q2H PRN BUCCAL agitation; Start 05/14/17 at 18:00 Ondansetron HCl (Zofran Inj) 4 mg Q4 PRN IV NAUSEA AND/OR VOMITING Last administered on 05/14/17 20:45; Admin Dose 4 MG; Start 05/14/17 at 20:30 Enoxaparin Sodium (Lovenox) 40 mg DAILY SC ; Start 05/16/17 at 09:00 Lorazepam (Ativan) 1 mg Q6H PRN PO ANXIETY Last administered on 05/16/17 16: 08; Admin Dose 1 MG; Start 05/16/17 at 15:30 Hydromorphone HCl (Dilaudid) 1 mg Q3 PRN IV PAIN LEVEL 6-10 Last administered on 05/17/17 06:52; Admin Dose 1 MG; Start 05/17/17 at 06:30 Hydromorphone HCl (Dilaudid) 2 mg Q4H PRN PO PAIN LEVEL 1-5; Start 05/17/17 at 06:30 Oxycodone HCl (Oxycontin) 10 mg BID PO Last administered on 05/17/17 21:23; Admin Dose 10 MG; Start 05/17/17 at 09:00 Trazodone HCl (Desyrel) 25 mg HS PO Last administered on 05/17/17 21:22; Admin Dose 25 MG; Start 05/17/17 at 21:00 Senna/Docusate Sodium (Senokot-S) 1 tab AM PO Last administered on 05/17/17 13:07; Admin Dose 1 TAB; Start 05/17/17 at 09:00 CHARLOTTE DÍAZ M.D. May 17, 2017 22:43
[2017-05-18] VITALS (15 sets, daily range): BP systolic 97–127; BP diastolic 64–85; PULSE 107–130; RESP 16–25
[2017-05-18] MEDS: ACETAMINOPHEN 325 MG TAB PO PRN (04:56)
[2017-05-18] MEDS: SENNA/DOCUSATE NA (8.6MG/50MG) TAB PO SCH (08:31)
[2017-05-18] MEDS: AZITHROMYCIN 250 MG TAB PO SCH (08:33)
[2017-05-18] MEDS: oxyCODONE (CR) 10 MG TAB [oxyCONTIN] PO SCH ×2 (08:37→21:00)
[2017-05-18] MEDS ORDERED: LIDOCAINE 1% (MPF) 5 ML VIAL ONE (10:12)
--- NOTE | 2017-05-18 10:21 | RADRPT ---
PROCEDURE: US guided left thoracentesis. CLINICAL INDICATION: Shortness of breath. Left pleural effusion. TECHNIQUE: Prior to the procedure, informed consent was obtained. The risks, benefits, and alternatives were e xplained to the patient or the patient's family, including but not limited to bleeding, infection, p ain, visceral or vascular damage, shock, pneumothorax, chest tube placement, air embolism, and . The patient or the patient's family understood the risks and the alternatives and wished to proce ed with the study. Informed written consent was obtained. A procedural pause was performed. The patient's name, date of , and procedure to be performed were verified. Ultrasound of the left hemithorax was performed in the axial and sagittal planes. A left pleural eff usion is noted. Utilizing ultrasound guidance, optimal location for entry to the pleural cavity was ascertained. The overlying skin was prepped and draped in the usual sterile fashion. Approximately 10 ml of 1% Xylocaine was injected locally for pain control. Using ultrasound guidance, a 5-[place] Yueh catheter was introduced into the left pleural space without difficulty. Fluid was aspirated. COMPARISON: Chest x-ray dated 05/16/2017. FINDINGS: Initial ultrasound demonstrates fluid in the left pleural space. Approximately 1.1 liters of serous fluid was aspirated and sent to the laboratory. IMPRESSION: 1. Satisfactory ultrasound-guided left thoracentesis. RPTAT: QQ .Chuck Robins MD, MD Date Time Electronically viewed and signed by .Chuck Robins MD, on 05/18/2017 10:21 .R/
--- NOTE | 2017-05-18 10:22 | RADRPT ---
PROCEDURE: XR Chest. CLINICAL INDICATION: Shortness of breath. Post left thoracentesis. TECHNIQUE: Single frontal view. COMPARISON: 05/16/2017. FINDINGS: There is a moderate right pleural effusion and right basilar atelectasis, unchanged. There is a smal l left pleural effusion, smaller than seen previously. Consolidation throughout the left mid and low er lung zones is unchanged. The heart size is normal. There is no pneumothorax. IMPRESSION: 1. No pneumothorax following left thoracentesis. RPTAT: QQ .Chuck Robins MD, MD Date Time Electronically viewed and signed by .Chuck Robins MD, MD on 05/18/2017 10:22 .R/
[2017-05-18] MEDS: HYDROmorphONE 1 MG/ML SYG IV PRN ×2 (11:52→16:23)
[2017-05-18] MEDS: ENOXAPARIN 40 MG/0.4 ML SYG SC SCH (12:00)
--- NOTE | 2017-05-18 12:25 | PN ---
Date/Time of Note Date/Time of Note DATE: 05/18/17 TIME: 12:23 Assessment/Plan VTE Prophylaxis VTE Prophylaxis Intervention: SCD's Lines/Catheters IV Catheter Type (from Nrsg): Saline Lock Assessment/Plan Assessment/Plan 41 yo F with no known chronic medical conditions presented with hypoxia, found to have R breast mass with pleural effusion concerning for advanced breast Ca. -US guided core breast biopsy done 05.17, path pending. -sp bl thoras, cytology pending -onc on consult, palliative on consult -RT consult per palliative rec -cont abx for CAP coverage. anticipate 7 days of therapy -pain and anxiety control -ss consult DVT prophx home O2 eval today, possibly home in AM with outpatient onc f/u Subjective 24 Hr Interval Summary Free Text/Dictation Other lung drained today. Looks a little less fatigued Exam/Review of Systems Vital Signs Vitals Vital Signs Date Time Temp Pulse Resp B/P Pulse Ox O2 Delivery O2 Flow Rate FiO2 05/18/17 11:13 97.9 120 24 112/69 95 05/18/17 01:55 3.0 05/14/17 22:37 Nasal Cannula Intake and Output 05/17/17 05/17/17 05/18/17 15:00 23:00 07:00 Intake Total 200 ml Balance 200 ml Exam nad, wearing nc less tachy abd soft no rashes no edema labs reviewed, path still pending Results Result Diagram: 05/15/17 0607 05/15/17 0612 Medications Medications Current Medications Acetaminophen (Tylenol Tab) 650 mg Q6H PRN PO PAIN LEVEL 1-3 OR FEVER Last administered on 05/18/17 04:56; Admin Dose 650 MG; Start 05/14/17 at 18:00 Docusate Sodium 100 mg 100 mg Q12H PRN PO CONSTIPATION; Start 05/14/17 at 18: 00 Ceftriaxone Sodium (Rocephin) 50 ml @ 100 mls/hr Q24H IV Last administered on 05/17/17 18:36; Admin Dose 100 MLS/HR; Start 05/14/17 at 18:00; Stop at 17:59 Azithromycin (Zithromax) 250 mg DAILY PO Last administered on 05/18/17 08:33 ; Admin Dose 250 MG; Start 05/15/17 at 09:00; Stop 05/21/17 at 08:59 Nicotine Polacrilex (Nicorette) 2 mg Q2H PRN BUCCAL agitation; Start 05/14/17 at 18:00 Ondansetron HCl (Zofran Inj) 4 mg Q4 PRN IV NAUSEA AND/OR VOMITING Last administered on 05/14/17 20:45; Admin Dose 4 MG; Start 05/14/17 at 20:30 Enoxaparin Sodium (Lovenox) 40 mg DAILY SC Last administered on 05/18/17 12: 00; Admin Dose 40 MG; Start 05/16/17 at 09:00 Lorazepam (Ativan) 1 mg Q6H PRN PO ANXIETY Last administered on 05/16/17 16: 08; Admin Dose 1 MG; Start 05/16/17 at 15:30 Hydromorphone HCl (Dilaudid) 1 mg Q3 PRN IV PAIN LEVEL 6-10 Last administered on 05/18/17 11:52; Admin Dose 1 MG; Start 05/17/17 at 06:30 Hydromorphone HCl (Dilaudid) 2 mg Q4H PRN PO PAIN LEVEL 1-5; Start 05/17/17 at 06:30 Oxycodone HCl (Oxycontin) 10 mg BID PO Last administered on 05/18/17 08:37; Admin Dose 10 MG; Start 05/17/17 at 09:00 Trazodone HCl (Desyrel) 25 mg HS PO Last administered on 05/17/17 21:22; Admin Dose 25 MG; Start 05/17/17 at 21:00 Senna/Docusate Sodium (Senokot-S) 1 tab AM PO Last administered on 05/18/17 08:31; Admin Dose 1 TAB; Start 05/17/17 at 09:00 KRIS CLAYTON MD May 18, 2017 12:25
[2017-05-18] MEDS: CEFTRIAXONE 1 GM/50 ML (PMX) 50 ML IV SCH (18:15)
[2017-05-18] MEDS: HYDROmorphONE 2 MG/ML SYG IV PRN (18:18)
[2017-05-18] MEDS: traZODone 50 MG TAB PO SCH (21:00)
[2017-05-18] MEDS: LORAZEPAM 1 MG TAB PO PRN (22:00)
[2017-05-19] VITALS (11 sets, daily range): BP systolic 109–125; BP diastolic 76–85; PULSE 120–140; RESP 16–18
[2017-05-19] MEDS: HYDROmorphONE 2 MG TAB PO PRN (00:46)
[2017-05-19] MEDS: HYDROmorphONE 2 MG/ML SYG IV PRN ×4 (02:21→19:33)
[2017-05-19] MEDS: oxyCODONE (CR) 10 MG TAB [oxyCONTIN] PO SCH ×2 (08:05→21:02)
[2017-05-19] MEDS: AZITHROMYCIN 250 MG TAB PO SCH (08:05)
[2017-05-19] MEDS: SENNA/DOCUSATE NA (8.6MG/50MG) TAB PO SCH (08:05)
[2017-05-19] MEDS: ENOXAPARIN 40 MG/0.4 ML SYG SC SCH (08:11)
--- NOTE | 2017-05-19 08:56 | CONS ---
Date/Time of Note Date/Time of Note DATE: 05/19/17 TIME: 08:48 Assessment/Plan Assessment/Plan Chief Complaint/Hosp Course 41 yo with Impression: # 4cm R Breast Mass with right axillary lymphadenopathy - now confirmed as metastatic breast cancer -will need to wait for immunohistochemical stains, ER/DC and HEr 2 as this will dictate treatment plan #Large Bilateral Pleural Effusions -s/p thoracentesis -f/u fluid cytology #Lytic Lesions wit compression fractures at C5, T10 and L2 -pt has been evaluated by Rad Onc -CT A/P and bone scan pending so radiation can be plannned #Pneumonia-pt with elevated lactate -continue antibiotics Problems: Consultation Date/Type/Reason Admit Date/Time May 14, 2017 at 13:40 Initial Consult Date 05/17/17 Type of Consultation: Oncology Reason for Consultation metastatic breast cancer Referring Provider: KRIS CLAYTON MD 24 HR Interval Summary Free Text/Dictation pt seen on 05/18 metastatic breast ca. s/p thoracentesis. Exam/Review of Systems Vital Signs Vitals Vital Signs Date Time Temp Pulse Resp B/P Pulse Ox O2 Delivery O2 Flow Rate FiO2 05/19/17 07:21 97.8 126 18 125/83 94 05/18/17 14:28 Nasal Cannula 2.5 Intake and Output 05/18/17 05/18/17 05/19/17 15:00 23:00 07:00 Intake Total 740 ml 450 ml Output Total 1100 ml Balance -1100 ml 740 ml 450 ml Exam Constitutional: alert, oriented Psych: anxiety, depression Head: normocephalic Eyes: nl conjunctiva ENMT: nl external ears & nose Neck: supple Respiratory: diminished breath sounds Cardiovascular: regular rate and rhythm Gastrointestinal: soft Musculoskeletal: nl extremities to inspection Results Result Diagram: 05/15/17 0607 05/15/17 0612 Medications Medications Current Medications Acetaminophen (Tylenol Tab) 650 mg Q6H PRN PO PAIN LEVEL 1-3 OR FEVER Last administered on 05/18/17 04:56; Admin Dose 650 MG; Start 05/14/17 at 18:00 Docusate Sodium 100 mg 100 mg Q12H PRN PO CONSTIPATION; Start 05/14/17 at 18: 00 Ceftriaxone Sodium (Rocephin) 50 ml @ 100 mls/hr Q24H IV Last administered on 05/18/17 18:15; Admin Dose 100 MLS/HR; Start 05/14/17 at 18:00; Stop at 17:59 Azithromycin (Zithromax) 250 mg DAILY PO Last administered on 05/19/17 08:05 ; Admin Dose 250 MG; Start 05/15/17 at 09:00; Stop 05/21/17 at 08:59 Nicotine Polacrilex (Nicorette) 2 mg Q2H PRN BUCCAL agitation; Start 05/14/17 at 18:00 Ondansetron HCl (Zofran Inj) 4 mg Q4 PRN IV NAUSEA AND/OR VOMITING Last administered on 05/14/17 20:45; Admin Dose 4 MG; Start 05/14/17 at 20:30 Enoxaparin Sodium (Lovenox) 40 mg DAILY SC Last administered on 05/19/17 08: 11; Admin Dose 40 MG; Start 05/16/17 at 09:00 Lorazepam (Ativan) 1 mg Q6H PRN PO ANXIETY Last administered on 05/18/17 22: 00; Admin Dose 1 MG; Start 05/16/17 at 15:30 Hydromorphone HCl (Dilaudid) 2 mg Q4H PRN PO PAIN LEVEL 1-5 Last administered on 05/19/17 00:46; Admin Dose 2 MG; Start 05/17/17 at 06:30 Oxycodone HCl (Oxycontin) 10 mg BID PO Last administered on 05/19/17 08:05; Admin Dose 10 MG; Start 05/17/17 at 09:00 Trazodone HCl (Desyrel) 25 mg HS PO Last administered on 05/18/17 21:00; Admin Dose 25 MG; Start 05/17/17 at 21:00 Senna/Docusate Sodium (Senokot-S) 1 tab AM PO Last administered on 05/19/17 08:05; Admin Dose 1 TAB; Start 05/17/17 at 09:00 Hydromorphone HCl (Dilaudid) 2 mg Q3 PRN IV PAIN Last administered on 07:49; Admin Dose 2 MG; Start 05/18/17 at 18:12 CHARLOTTE DÍAZ M.D. May 19, 2017 08:56
--- NOTE | 2017-05-19 10:11 | CONS ---
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 NARRATIVE: The patient is a 41-year-old -[place] female who presented to medical attention with complaints of progressive shortness of breath and low back pain. On evaluation at [facility], she was found to be tachycardic with an elevated white count. An exophytic fungating breast mass was also noted. She has since undergone a CT of the chest on 05/15/2017 revealing large bilateral pleural effusions, a 4 cm mass in the right breast with overlying skin thickening, multiple prominent right axillary lymph nodes - - the largest measuring 18 mm, and diffuse lytic lesions involving C2, C6, C7, T4, T10, T12, L1, and L2 vertebral bodies. There was a severe compression fracture at C5 and mild compression fractures at T10 and L2. Additional lesions were observed involving the sternum and the right second rib. The patient has since undergone an ultrasound-guided thoracentesis on the right retrieving 920 mL of fluid and of the left hemithorax on 05/18/2017 retrieving 1100 liters of fluid. My understanding is that cytology demonstrates malignancy. An ultrasound-guided core biopsy of the right breast was performed on 05/17/2017 and the final pathology is pending. Biomarkers thus are not available. The patient states that she has had progressive back pain for several months but until recently this had been managed with nonsteroidals. Her pain recently significantly progressed and on admission is now generally being controlled with narcotic analgesia including OxyContin 10 mg b.i.d. and Dilaudid p.r.n. The pain does not radiate anteriorly across the chest or down the legs. She denies any focal weakness or numbness. Her breathing is better. She denies any hoarseness. She has a dry cough. She denies any headaches or visual disturbances. She has been experiencing decreased appetite and weight loss. She does not note denies any other sites of any significant pain. PAST MEDICAL HISTORY: Noncontributory. PAST SURGICAL HISTORY: Noncontributory. ALLERGIES TO MEDICATIONS: None known. CURRENT MEDICATIONS: 1. Tylenol p.r.n. 2. Colace p.r.n. 3. Rocephin. 4. Zithromax. 5. Nicorette. 6. Zofran p.r.n. 7. Lovenox. 8. Ativan p.r.n. 9. Dilaudid 1 mg q.3 p.r.n. IV. 10. Dilaudid 2 mg p.o. q.4 p.r.n. 11. OxyContin 10 mg b.i.d. 12. Trazodone 25 mg at bedtime. SOCIAL HISTORY: She lives alone. She has an adult son. She admits to daily tobacco use. She denies any significant alcohol use. FAMILY HISTORY: She has a family history of gastric cancer, grandmother. No family history of breast cancer. REVIEW OF SYSTEMS: GENERAL: Admits to fatigue. No fevers, chills or sweats. ENT: No otalgia, dysphagia, hoarseness. NEUROLOGIC: No headaches, seizure activity, focal weakness or numbness. RESPIRATORY: Admits to shortness of breath, dyspnea on exertion, and a dry cough, but no hoarseness or hemoptysis. CARDIOVASCULAR: No history of chest pain, palpitations, heart attacks or strokes, but she had been experiencing pleuritic chest discomfort. GENITOURINARY: No dysuria, hematuria or incontinence. GASTROINTESTINAL: No current nausea, vomiting. Some constipation. No rectal pain or bleeding. GYNECOLOGICAL: Denies atypical vaginal discharge or bleeding. SKIN: No history of lupus or scleroderma. MUSCULOSKELETAL: Pain as described. ENDOCRINE: No history of diabetes or thyroid disease. PHYSICAL EXAMINATION: GENERAL: A thin-appearing female in no distress. HEENT: Pupils slightly miotic. Extraocular motions are intact. No facial asymmetry. NODES: No palpable cervical or supraclavicular adenopathy. There are palpable right axillary nodes that are nontender. No left axillary adenopathy. BREASTS: Examination not performed. ABDOMEN: Soft, nontender, without rebound or guarding. EXTREMITIES: No edema. MUSCULOSKELETAL: Mild low back tenderness. NEUROLOGIC: Grossly nonfocal. No motor or sensory deficits in the lower extremities. IMPRESSION: The patient is a 41-year-old female with presumed locally advanced carcinoma of the breast with metastatic disease to bone with pleural effusions. PLAN: We await final pathology including biomarkers. The patient is scheduled to be discharged over the weekend once pain control is achieved. I reviewed the case with Dr. Swanson, who will see her as an outpatient and likely start systemic therapy in the near term. I have reviewed the case with Dr. Clark, and I would recommend that a CT abdomen and pelvis and a whole body bone scan be obtained if possible while the patient remains in house to complete staging. This would also help clarify the location of her metastatic disease for future radiotherapy. The patient was instructed to call my office as an outpatient as well to arrange followup appointment. I do anticipate that she could be considered for EBRT to the thoracic or lumbar spine to help palliate her discomfort which now is centered in the low lumbar region. We briefly reviewed the nature, rationale, and risks and side effects and benefits of treatment. Side effects were discussed. I would need to sequence therapy or adjust therapy appropriately with systemic therapy and those decisions will be made at a later date. Thank you for allowing me to participate with her assessment and care. Dictated By: RAYSA HANSON/ESTHER Conf#: [id number] DID#: [id number] MTDD
[2017-05-19] MEDS ORDERED: SOD CHLORIDE 0.9% 100 ML ONE (11:17)
[2017-05-19] MEDS ORDERED: IOHEXOL 300MG/ML 150 ML BTL ONE (11:17)
--- NOTE | 2017-05-19 12:01 | PN ---
Date/Time of Note Date/Time of Note DATE: 05/19/17 TIME: 11:59 Assessment/Plan VTE Prophylaxis VTE Prophylaxis Intervention: SCD's Lines/Catheters IV Catheter Type (from Nrsg): Saline Lock Assessment/Plan Assessment/Plan 41 yo F presented for SOB, found to have R breast Ca with malignant pleural effusion and bone mets -US guided core breast biopsy done 10.19: invasive ductal ca. OH/ER/HER2 pending -sp bl thoras, +malignant cytology -onc on consult, palliative on consult -sp consult, requested imaging ordered -cont abx for CAP coverage. anticipate 7 days of therapy -pain and anxiety control -ss consult DVT prophx sp CM consult as will need home o2 on discharge plan on dc sunday once CT AP and NM bone scan for help with RT planning are done pt to f/u with dr montgomery/oncology Exam/Review of Systems Vital Signs Vitals Vital Signs Date Time Temp Pulse Resp B/P Pulse Ox O2 Delivery O2 Flow Rate FiO2 05/19/17 11:53 98.2 132 16 119/85 93 05/18/17 14:28 Nasal Cannula 2.5 Intake and Output 05/18/17 05/18/17 05/19/17 15:00 23:00 07:00 Intake Total 740 ml 450 ml Output Total 1100 ml Balance -1100 ml 740 ml 450 ml Results Result Diagram: 05/15/17 0607 05/15/17 0612 Medications Medications Current Medications Acetaminophen (Tylenol Tab) 650 mg Q6H PRN PO PAIN LEVEL 1-3 OR FEVER Last administered on 05/18/17 04:56; Admin Dose 650 MG; Start 05/14/17 at 18:00 Docusate Sodium 100 mg 100 mg Q12H PRN PO CONSTIPATION; Start 05/14/17 at 18: 00 Ceftriaxone Sodium (Rocephin) 50 ml @ 100 mls/hr Q24H IV Last administered on 05/18/17 18:15; Admin Dose 100 MLS/HR; Start 05/14/17 at 18:00; Stop at 17:59 Azithromycin (Zithromax) 250 mg DAILY PO Last administered on 05/19/17 08:05 ; Admin Dose 250 MG; Start 05/15/17 at 09:00; Stop 05/21/17 at 08:59 Nicotine Polacrilex (Nicorette) 2 mg Q2H PRN BUCCAL agitation; Start 05/14/17 at 18:00 Ondansetron HCl (Zofran Inj) 4 mg Q4 PRN IV NAUSEA AND/OR VOMITING Last administered on 05/14/17 20:45; Admin Dose 4 MG; Start 05/14/17 at 20:30 Enoxaparin Sodium (Lovenox) 40 mg DAILY SC Last administered on 05/19/17 08: 11; Admin Dose 40 MG; Start 05/16/17 at 09:00 Lorazepam (Ativan) 1 mg Q6H PRN PO ANXIETY Last administered on 05/18/17 22: 00; Admin Dose 1 MG; Start 05/16/17 at 15:30 Hydromorphone HCl (Dilaudid) 2 mg Q4H PRN PO PAIN LEVEL 1-5 Last administered on 05/19/17 00:46; Admin Dose 2 MG; Start 05/17/17 at 06:30 Oxycodone HCl (Oxycontin) 10 mg BID PO Last administered on 05/19/17 08:05; Admin Dose 10 MG; Start 05/17/17 at 09:00 Trazodone HCl (Desyrel) 25 mg HS PO Last administered on 05/18/17 21:00; Admin Dose 25 MG; Start 05/17/17 at 21:00 Senna/Docusate Sodium (Senokot-S) 1 tab AM PO Last administered on 05/19/17 08:05; Admin Dose 1 TAB; Start 05/17/17 at 09:00 Hydromorphone HCl (Dilaudid) 2 mg Q3 PRN IV PAIN Last administered on 07:49; Admin Dose 2 MG; Start 05/18/17 at 18:12 KRIS CLAYTON MD May 19, 2017 12:01
--- NOTE | 2017-05-19 12:32 | RADRPT ---
PROCEDURE: Whole body bone scan study CLINICAL INDICATION: 41 -year-old patient with breast cancer, for evaluation for skeletal metastas es. TECHNIQUE: Following the intravenous injection of 23.0 mCi of Tc-99m MDP, whole body anterior and posterior planar images were obtained along with spot views of the chest, abdomen and pelvis. COMPARISON: CT scan of the chest, abdomen and pelvis dated May 19, 2017. FINDINGS: Numerous foci of increased tracer activity are seen in the frontal calvarium, upper sternum, spine, left sacroiliac joint, right mid anterior rib cage. No other definite abnormal areas of increased activity or asymmetries are visualized in the study an d distribution of radionuclide is homogeneous in the skull, spine, rib cages, sternum, pelvis and vi sualized portions of the upper and lower extremities. Of incidental note, there is no evidence of mass abnormalities of the kidneys or obstructive uropath y. IMPRESSION: Numerous foci of increased tracer activity in the skeleton, as described above, demonstrate a scinti graphic pattern most concerning for skeletal metastases. RPTAT: HH .Jaqueline Frost MD, Date Time Electronically viewed and signed by .Jaqueline Frost MD, on 05/19/2017 12:31 .L/
--- NOTE | 2017-05-19 15:58 | RADRPT ---
PROCEDURE: CT Abdomen and Pelvis with contrast. CLINICAL INDICATION: Stage IV right breast cancer. Abdominal and pelvic pain. TECHNIQUE: CT scan of the abdomen and pelvis with contrast was performed. The patient was scanned following the uncomplicated intravenous administration of 90 cc of Omnipaque-300. Coronal and sagit raji reformatted images were obtained from the axial source images. Images were reviewed on a [employer] PACS workstation. Total exam DLP is 306.21 mGy-cm. CTDIvol is 5.54 mGy. One or more of t he following dose reduction techniques were used: Automated exposure control, adjustment of the mA a nd/or kV according to patient size, use of iterative reconstruction technique. COMPARISON: CT scan of the chest dated 05/15/2017. FINDINGS: Images through the lower chest demonstrate large bilateral pleural effusions and atelectasis at the lung bases with left worse than right. There is a small pericardial effusion. The heart is normal in size. There is marked thickening of the skin of the right breast and a probable mass is present marcial trally in the right breast measuring 3.6 x 2.4 cm. The liver is normal in size and attenuation. There is an ill-defined mass superiorly in the right he patic lobe consistent with neoplasm measuring approximately 2.4 cm and there is a mass anteriorly in the left hepatic lobe measuring 2.1 cm consistent with neoplasm. Several smaller masses and benign cysts are also present in the liver. The gallbladder and bile ducts are normal. The spleen is normal in size. There is no focal splenic lesion. Both adrenals are normal with no enlargement or mass. The pancreas is unremarkable with no mass or evidence of pancreatitis. Both kidneys demonstrate normal contrast enhancement. There is no renal mass or hydronephrosis. The abdominal aorta is not dilated. There is no retroperitoneal lymphadenopathy or mass. There is a mass posteriorly in the right side of the pelvis measuring 5.1 x 5.8 cm. The bladder is distended. The periappendiceal region is unremarkable with no evidence of appendicitis. The bowel and mesentery are normal. There is no free fluid or free gas. There are multiple osseous lytic lesions involving the sternum, pelvis, sacrum, and spine. There is pathologic fracture at right side L2 inferiorly, left side of L4, and left superior acetabulum. IMPRESSION: 1. Large bilateral pleural effusions and atelectasis at the lung bases with left worse than right. 2. Small pericardial effusion. 3. Abnormal appearance of the breast consistent with known neoplasm at this site. 4. Liver masses consistent with neoplasm. 5. Mass posteriorly in the right side of the pelvis measuring 5.1 x 5.8 cm. 6. Distended urinary bladder. 7. Multiple osseous lytic lesions with pathologic fractures consistent with neoplasm. RPTAT: QQ .Chuck Robins MD, MD Date Time Electronically viewed and signed by .Chuck Robins MD, on 05/19/2017 15:57 .R/
[2017-05-19] MEDS: CEFTRIAXONE 1 GM/50 ML (PMX) 50 ML IV SCH (19:33)
[2017-05-19] MEDS: traZODone 50 MG TAB PO SCH (21:02)
[2017-05-20] VITALS (10 sets, daily range): BP systolic 113–123; BP diastolic 70–84; PULSE 122–140; RESP 16–18
[2017-05-20] MEDS: HYDROmorphONE 2 MG/ML SYG IV PRN ×5 (00:53→20:15)
[2017-05-20] MEDS: AZITHROMYCIN 250 MG TAB PO SCH (08:13)
[2017-05-20] MEDS: SENNA/DOCUSATE NA (8.6MG/50MG) TAB PO SCH (08:13)
[2017-05-20] MEDS: oxyCODONE (CR) 10 MG TAB [oxyCONTIN] PO SCH ×2 (08:13→21:00)
[2017-05-20] MEDS: ENOXAPARIN 40 MG/0.4 ML SYG SC SCH (08:26)
[2017-05-20] MEDS: HYDROmorphONE 2 MG TAB PO PRN (09:12)
[2017-05-20] MEDS ORDERED: DEXAMETHASONE 1 MG TAB PO SCH ×2 (12:30)
[2017-05-20] MEDS: DEXAMETHASONE 2 MG TAB PO SCH ×2 (15:40→21:00)
[2017-05-20] MEDS: CEFTRIAXONE 1 GM/50 ML (PMX) 50 ML IV SCH (17:17)
--- NOTE | 2017-05-20 17:49 | PN ---
Date/Time of Note Date/Time of Note DATE: 05/20/17 TIME: 17:47 Assessment/Plan VTE Prophylaxis VTE Prophylaxis Intervention: SCD's Lines/Catheters IV Catheter Type (from Nrsg): Saline Lock Assessment/Plan Assessment/Plan 41 yo F presented for SOB, found to have R breast Ca with malignant pleural effusion and bone mets -US guided core breast biopsy 10.19: invasive ductal ca. PA/ER/HER2 pending -sp isabella medina, +malignant cytology -onc on consult-->will see in clinic. fernando vuong cs--> will see in clinic, palliative on consult -cont abx for CAP coverage. last day of abx . -pain and anxiety control-->started dex today to help with pain from bone mets - DVT prophx sp CM consult as will need home o2 on discharge plan on dc sunday pt to f/u with dr montgomery/oncology and G[facility] Subjective 24 Hr Interval Summary Free Text/Dictation uncomfortable Exam/Review of Systems Vital Signs Vitals Vital Signs Date Time Temp Pulse Resp B/P Pulse Ox O2 Delivery O2 Flow Rate FiO2 05/20/17 16:12 124 05/20/17 03:53 98.5 18 113/71 92 05/18/17 14:28 Nasal Cannula 2.5 Intake and Output 05/19/17 05/19/17 05/20/17 15:00 23:00 07:00 Intake Total 420 ml 400 ml Balance 420 ml 400 ml Exam thin tachy no mrg abd soft no rashes Medications Medications Current Medications Acetaminophen (Tylenol Tab) 650 mg Q6H PRN PO PAIN LEVEL 1-3 OR FEVER Last administered on 05/18/17 04:56; Admin Dose 650 MG; Start 05/14/17 at 18:00 Docusate Sodium 100 mg 100 mg Q12H PRN PO CONSTIPATION; Start 05/14/17 at 18: 00 Ceftriaxone Sodium (Rocephin) 50 ml @ 100 mls/hr Q24H IV Last administered on 05/20/17 17:17; Admin Dose 100 MLS/HR; Start 05/14/17 at 18:00; Stop at 17:59 Azithromycin (Zithromax) 250 mg DAILY PO Last administered on 05/20/17 08:13 ; Admin Dose 250 MG; Start 05/15/17 at 09:00; Stop 05/21/17 at 08:59 Nicotine Polacrilex (Nicorette) 2 mg Q2H PRN BUCCAL agitation; Start 05/14/17 at 18:00 Ondansetron HCl (Zofran Inj) 4 mg Q4 PRN IV NAUSEA AND/OR VOMITING Last administered on 05/14/17 20:45; Admin Dose 4 MG; Start 05/14/17 at 20:30 Enoxaparin Sodium (Lovenox) 40 mg DAILY SC Last administered on 05/20/17 08: 26; Admin Dose 40 MG; Start 05/16/17 at 09:00 Lorazepam (Ativan) 1 mg Q6H PRN PO ANXIETY Last administered on 05/18/17 22: 00; Admin Dose 1 MG; Start 05/16/17 at 15:30 Hydromorphone HCl (Dilaudid) 2 mg Q4H PRN PO PAIN LEVEL 1-5 Last administered on 05/20/17 09:12; Admin Dose 2 MG; Start 05/17/17 at 06:30 Oxycodone HCl (Oxycontin) 10 mg BID PO Last administered on 05/20/17 08:13; Admin Dose 10 MG; Start 05/17/17 at 09:00 Trazodone HCl (Desyrel) 25 mg HS PO Last administered on 05/19/17 21:02; Admin Dose 25 MG; Start 05/17/17 at 21:00 Senna/Docusate Sodium (Senokot-S) 1 tab AM PO Last administered on 05/20/17 08:13; Admin Dose 1 TAB; Start 05/17/17 at 09:00 Hydromorphone HCl (Dilaudid) 2 mg Q3 PRN IV PAIN Last administered on 17:12; Admin Dose 2 MG; Start 05/18/17 at 18:12 Dexamethasone (Decadron) 2 mg BID PO Last administered on 05/20/17 15:40; Admin Dose 2 MG; Start 05/20/17 at 15:37 KRIS CLAYTON MD May 20, 2017 17:49
[2017-05-20] MEDS: traZODone 50 MG TAB PO SCH (21:00)
[2017-05-21] VITALS (11 sets, daily range): BP systolic 113–121; BP diastolic 75–88; PULSE 103–140; RESP 16–19
[2017-05-21] MEDS: HYDROmorphONE 2 MG/ML SYG IV PRN ×5 (00:25→17:50)
[2017-05-21] MEDS: HYDROmorphONE 2 MG TAB PO PRN (04:59)
[2017-05-21] MEDS: DEXAMETHASONE 2 MG TAB PO SCH ×2 (08:38→20:32)
[2017-05-21] MEDS: SENNA/DOCUSATE NA (8.6MG/50MG) TAB PO SCH (08:38)
[2017-05-21] MEDS: oxyCODONE (CR) 10 MG TAB [oxyCONTIN] PO SCH ×2 (08:54→20:36)
[2017-05-21] MEDS: ENOXAPARIN 40 MG/0.4 ML SYG SC SCH (10:34)
--- NOTE | 2017-05-21 11:38 | PN ---
Date/Time of Note Date/Time of Note DATE: 05/21/17 TIME: 11:32 Assessment/Plan VTE Prophylaxis VTE Prophylaxis Intervention: LMWH Lines/Catheters IV Catheter Type (from Nrsg): Saline Lock Assessment/Plan Chief Complaint/Hosp Course Assessment/Plan: 41 yo F presented for SOB, found to have R breast Ca with malignant pleural effusion and bone mets. 1. breast ca: -US guided core breast biopsy 05.17: invasive ductal ca. [place]/ER/ HER2 pending, sp isabella medina, +malignant cytology -onc on consult-->will follow up with patient in clinic. fernando vuong cs--> will see in clinic, palliative on consult -cont abx for CAP coverage. last day of abx 05.21 -pain and anxiety control 2. DVT prophx-low molecular weight heparin sp CM consult as will need home o2 on [id number] with them on this Problems: Subjective 24 Hr Interval Summary Free Text/Dictation Patient still having some pain symptoms. Exam/Review of Systems Vital Signs Vitals Vital Signs Date Time Temp Pulse Resp B/P Pulse Ox O2 Delivery O2 Flow Rate FiO2 05/21/17 08:00 126 05/21/17 07:48 97.9 19 114/75 98 05/18/17 14:28 Nasal Cannula 2.5 Exam thin, sitting in bed, in mild distress tachy heart rate no mrg abd soft no rashes Medications Medications Current Medications Acetaminophen (Tylenol Tab) 650 mg Q6H PRN PO PAIN LEVEL 1-3 OR FEVER Last administered on 05/18/17 04:56; Admin Dose 650 MG; Start 05/14/17 at 18:00 Docusate Sodium 100 mg 100 mg Q12H PRN PO CONSTIPATION; Start 05/14/17 at 18: 00 Ceftriaxone Sodium (Rocephin) 50 ml @ 100 mls/hr Q24H IV Last administered on 05/20/17 17:17; Admin Dose 100 MLS/HR; Start 05/14/17 at 18:00; Stop at 17:59 Nicotine Polacrilex (Nicorette) 2 mg Q2H PRN BUCCAL agitation; Start 05/14/17 at 18:00 Ondansetron HCl (Zofran Inj) 4 mg Q4 PRN IV NAUSEA AND/OR VOMITING Last administered on 05/14/17 20:45; Admin Dose 4 MG; Start 05/14/17 at 20:30 Enoxaparin Sodium (Lovenox) 40 mg DAILY SC Last administered on 05/21/17 10: 34; Admin Dose 40 MG; Start 05/16/17 at 09:00 Lorazepam (Ativan) 1 mg Q6H PRN PO ANXIETY Last administered on 05/18/17 22: 00; Admin Dose 1 MG; Start 05/16/17 at 15:30 Hydromorphone HCl (Dilaudid) 2 mg Q4H PRN PO PAIN LEVEL 1-5 Last administered on 05/21/17 04:59; Admin Dose 2 MG; Start 05/17/17 at 06:30 Oxycodone HCl (Oxycontin) 10 mg BID PO Last administered on 05/21/17 08:54; Admin Dose 10 MG; Start 05/17/17 at 09:00 Trazodone HCl (Desyrel) 25 mg HS PO Last administered on 05/20/17 21:00; Admin Dose 25 MG; Start 05/17/17 at 21:00 Senna/Docusate Sodium (Senokot-S) 1 tab AM PO Last administered on 05/21/17 08:38; Admin Dose 1 TAB; Start 05/17/17 at 09:00 Hydromorphone HCl (Dilaudid) 2 mg Q3 PRN IV PAIN Last administered on 09:24; Admin Dose 2 MG; Start 05/18/17 at 18:12 Dexamethasone (Decadron) 2 mg BID PO Last administered on 05/21/17 08:38; Admin Dose 2 MG; Start 05/20/17 at 15:37 HAYLEY RANDLE May 21, 2017 11:38
--- NOTE | 2017-05-21 17:16 | CONS ---
Date/Time of Note Date/Time of Note DATE: 05/21/17 TIME: 17:13 Assessment/Plan Assessment/Plan Chief Complaint/Hosp Course 41 yo with Impression: # 4cm R Breast Mass with right axillary lymphadenopathy - now confirmed as metastatic breast cancer -will need to wait for immunohistochemical stains, ER/ID and HEr 2 as this will dictate treatment plan -CT A/P also demonstrates liver lesions #Large Bilateral Pleural Effusions -s/p thoracentesis -f/u fluid cytology #Lytic Lesions wit compression fractures at C5, T10 and L2 -bone scan revealed numerous foci of increased tracer activity are seen in the frontal calvarium, upper sternum, spine, left sacroiliac joint, right mid anterior rib cag -pt has been evaluated by Rad Onc to start palliative XRT #Pneumonia-pt with elevated lactate -continue antibiotics #pain-continue current pain regimen Problems: Consultation Date/Type/Reason Admit Date/Time May 14, 2017 at 13:40 Initial Consult Date 05/17/17 Type of Consultation: Oncology Reason for Consultation metastatic breast cancer Referring Provider: KRIS CLAYTON MD 24 HR Interval Summary Free Text/Dictation pt still with a lot of pain and anxiety. states her pain medications are not coming on time. knows she has metastatic breast cancer Exam/Review of Systems Vital Signs Vitals Vital Signs Date Time Temp Pulse Resp B/P Pulse Ox O2 Delivery O2 Flow Rate FiO2 05/21/17 16:51 117 05/21/17 15:22 97.8 19 116/81 100 05/18/17 14:28 Nasal Cannula 2.5 Exam Constitutional: alert, distress, frail Psych: anxiety, depression Head: normocephalic Eyes: nl conjunctiva ENMT: nl external ears & nose Neck: supple Respiratory: diminished breath sounds Cardiovascular: regular rate and rhythm Musculoskeletal: muscle weakness, nl extremities to inspection Medications Medications Current Medications Acetaminophen (Tylenol Tab) 650 mg Q6H PRN PO PAIN LEVEL 1-3 OR FEVER Last administered on 05/18/17 04:56; Admin Dose 650 MG; Start 05/14/17 at 18:00 Docusate Sodium 100 mg 100 mg Q12H PRN PO CONSTIPATION; Start 05/14/17 at 18: 00 Ceftriaxone Sodium (Rocephin) 50 ml @ 100 mls/hr Q24H IV Last administered on 05/20/17 17:17; Admin Dose 100 MLS/HR; Start 05/14/17 at 18:00; Stop at 17:59 Nicotine Polacrilex (Nicorette) 2 mg Q2H PRN BUCCAL agitation; Start 05/14/17 at 18:00 Ondansetron HCl (Zofran Inj) 4 mg Q4 PRN IV NAUSEA AND/OR VOMITING Last administered on 05/14/17 20:45; Admin Dose 4 MG; Start 05/14/17 at 20:30 Enoxaparin Sodium (Lovenox) 40 mg DAILY SC Last administered on 05/21/17 10: 34; Admin Dose 40 MG; Start 05/16/17 at 09:00 Lorazepam (Ativan) 1 mg Q6H PRN PO ANXIETY Last administered on 05/18/17 22: 00; Admin Dose 1 MG; Start 05/16/17 at 15:30 Hydromorphone HCl (Dilaudid) 2 mg Q4H PRN PO PAIN LEVEL 1-5 Last administered on 05/21/17 04:59; Admin Dose 2 MG; Start 05/17/17 at 06:30 Oxycodone HCl (Oxycontin) 10 mg BID PO Last administered on 05/21/17 08:54; Admin Dose 10 MG; Start 05/17/17 at 09:00 Trazodone HCl (Desyrel) 25 mg HS PO Last administered on 05/20/17 21:00; Admin Dose 25 MG; Start 05/17/17 at 21:00 Senna/Docusate Sodium (Senokot-S) 1 tab AM PO Last administered on 05/21/17 08:38; Admin Dose 1 TAB; Start 05/17/17 at 09:00 Hydromorphone HCl (Dilaudid) 2 mg Q3 PRN IV PAIN Last administered on 13:29; Admin Dose 2 MG; Start 05/18/17 at 18:12 Dexamethasone (Decadron) 2 mg BID PO Last administered on 05/21/17 08:38; Admin Dose 2 MG; Start 05/20/17 at 15:37 CHARLOTTE DÍAZ M.D. May 21, 2017 17:16
[2017-05-21] MEDS: traZODone 50 MG TAB PO SCH (20:32)
[2017-05-22] VITALS (13 sets, daily range): BP systolic 105–123; BP diastolic 69–83; PULSE 85–120; RESP 18–20
[2017-05-22] MEDS: HYDROmorphONE 2 MG/ML SYG IV PRN ×4 (00:13→21:26)
[2017-05-22] MEDS: DEXAMETHASONE 2 MG TAB PO SCH ×2 (08:50→20:46)
[2017-05-22] MEDS: SENNA/DOCUSATE NA (8.6MG/50MG) TAB PO SCH (08:50)
[2017-05-22] MEDS: oxyCODONE (CR) 10 MG TAB [oxyCONTIN] PO SCH ×2 (08:52→20:46)
[2017-05-22] MEDS: ENOXAPARIN 40 MG/0.4 ML SYG SC SCH (08:58)
--- NOTE | 2017-05-22 10:19 | PN ---
Date/Time of Note Date/Time of Note DATE: 05/22/17 TIME: : Assessment/Plan VTE Prophylaxis VTE Prophylaxis Intervention: LMWH Lines/Catheters IV Catheter Type (from Nrsg): Saline Lock Assessment/Plan Chief Complaint/Hosp Course Assessment/Plan: 41 yo F presented for SOB, found to have R breast Ca with malignant pleural effusion and bone mets. 1. breast ca: -US guided core breast biopsy 05.17: invasive ductal ca. [place]/ER/ HER2 pending as this will dictate treatment plan, fernando medina, +malignant cytology -onc on consult-->will follow up with patient in clinic. fernando vuong cs--> will see in clinic, palliative on consult -completed abx for CAP coverage yesterday -continue pain and anxiety control 2. DVT prophx-low molecular weight heparin sp CM consult as will need home o2 on [id number] with them on this Problems: Subjective 24 Hr Interval Summary Free Text/Dictation Patient still with pain symptoms. Seen by hematology oncology team yesterday. Exam/Review of Systems Vital Signs Vitals Vital Signs Date Time Temp Pulse Resp B/P Pulse Ox O2 Delivery O2 Flow Rate FiO2 05/22/17 08:25 90 05/22/17 07:13 98.1 19 115/83 97 05/22/17 04:51 4.5 05/21/17 19:37 Nasal Cannula Intake and Output 05/21/17 05/21/17 05/22/17 15:00 23:00 07:00 Intake Total 560 ml 400 ml Balance 560 ml 400 ml Exam thin, sitting in bed, in mild distress tachy heart rate no mrg abd soft no rashes Medications Medications Current Medications Acetaminophen (Tylenol Tab) 650 mg Q6H PRN PO PAIN LEVEL 1-3 OR FEVER Last administered on 05/18/17 04:56; Admin Dose 650 MG; Start 05/14/17 at 18:00 Docusate Sodium (Colace) 100 mg Q12H PRN PO CONSTIPATION; Start 05/14/17 at 18 :00 Nicotine Polacrilex (Nicorette) 2 mg Q2H PRN BUCCAL agitation; Start 05/14/17 at 18:00 Ondansetron HCl (Zofran Inj) 4 mg Q4 PRN IV NAUSEA AND/OR VOMITING Last administered on 05/14/17 20:45; Admin Dose 4 MG; Start 05/14/17 at 20:30 Enoxaparin Sodium (Lovenox) 40 mg DAILY SC Last administered on 05/22/17 08: 58; Admin Dose 40 MG; Start 05/16/17 at 09:00 Lorazepam (Ativan) 1 mg Q6H PRN PO ANXIETY Last administered on 05/18/17 22: 00; Admin Dose 1 MG; Start 05/16/17 at 15:30 Hydromorphone HCl (Dilaudid) 2 mg Q4H PRN PO PAIN LEVEL 1-5 Last administered on 05/21/17 04:59; Admin Dose 2 MG; Start 05/17/17 at 06:30 Oxycodone HCl (Oxycontin) 10 mg BID PO Last administered on 05/22/17 08:52; Admin Dose 10 MG; Start 05/17/17 at 09:00 Trazodone HCl (Desyrel) 25 mg HS PO Last administered on 05/21/17 20:32; Admin Dose 25 MG; Start 05/17/17 at 21:00 Senna/Docusate Sodium (Senokot-S) 1 tab AM PO Last administered on 05/22/17 08:50; Admin Dose 1 TAB; Start 05/17/17 at 09:00 Hydromorphone HCl (Dilaudid) 2 mg Q3 PRN IV PAIN Last administered on 03:32; Admin Dose 2 MG; Start 05/18/17 at 18:12 Dexamethasone (Decadron) 2 mg BID PO Last administered on 05/22/17 08:50; Admin Dose 2 MG; Start 05/20/17 at 15:37 HAYLEY RANDLE May 22, 2017 10:19
--- NOTE | 2017-05-22 13:44 | CONS ---
Date/Time of Note Date/Time of Note DATE: 05/22/17 TIME: 13:42 Assessment/Plan Assessment/Plan Chief Complaint/Hosp Course 41 yo with Impression: # 4cm R Breast Mass with right axillary lymphadenopathy - now confirmed as metastatic breast cancer -will need to wait for immunohistochemical stains, ER/LA and HEr 2 as this will dictate treatment plan -CT A/P also demonstrates liver lesions #Large Bilateral Pleural Effusions -s/p thoracentesis -f/u fluid cytology #Lytic Lesions wit compression fractures at C5, T10 and L2 -bone scan revealed numerous foci of increased tracer activity are seen in the frontal calvarium, upper sternum, spine, left sacroiliac joint, right mid anterior rib cag -pt has been evaluated by Rad Onc to start palliative XRT -continue po dilaudid and norco for bone pain #Pneumonia-pt with elevated lactate -continue antibiotics #pain-continue current pain regimen Problems: Consultation Date/Type/Reason Admit Date/Time May 14, 2017 at 13:40 Initial Consult Date 05/17/17 Type of Consultation: Oncology Reason for Consultation metastatic breast cancer Referring Provider: KRIS CLAYTON MD 24 HR Interval Summary Free Text/Dictation pt is sill requiring po Dilaudid and oxycodone Exam/Review of Systems Vital Signs Vitals Vital Signs Date Time Temp Pulse Resp B/P Pulse Ox O2 Delivery O2 Flow Rate FiO2 05/22/17 12:45 111 05/22/17 12:10 98.4 20 117/81 98 05/22/17 08:00 Nasal Cannula 4.0 Intake and Output 05/21/17 05/21/17 05/22/17 15:00 23:00 07:00 Intake Total 560 ml 400 ml Balance 560 ml 400 ml Exam Constitutional: alert, oriented Psych: no complaints Head: normocephalic Eyes: EOMI, nl conjunctiva ENMT: nl external ears & nose Neck: non-tender, supple Respiratory: diminished breath sounds Cardiovascular: regular rate and rhythm Gastrointestinal: soft Musculoskeletal: nl extremities to inspection Neurological: PHOTO SPECIALIST II-XII intact Medications Medications Current Medications Acetaminophen (Tylenol Tab) 650 mg Q6H PRN PO PAIN LEVEL 1-3 OR FEVER Last administered on 05/18/17t 04:56; Admin Dose 650 MG; Start 05/14/17 at 18:00 Docusate Sodium (Colace) 100 mg Q12H PRN PO CONSTIPATION; Start 05/14/17 at 18 :00 Nicotine Polacrilex (Nicorette) 2 mg Q2H PRN BUCCAL agitation; Start 05/14/17 at 18:00 Ondansetron HCl (Zofran Inj) 4 mg Q4 PRN IV NAUSEA AND/OR VOMITING Last administered on 05/14/17 20:45; Admin Dose 4 MG; Start 05/14/17 at 20:30 Enoxaparin Sodium (Lovenox) 40 mg DAILY SC Last administered on 05/22/17 08: 58; Admin Dose 40 MG; Start 05/16/17 at 09:00 Lorazepam (Ativan) 1 mg Q6H PRN PO ANXIETY Last administered on 05/18/17 22: 00; Admin Dose 1 MG; Start 05/16/17 at 15:30 Hydromorphone HCl (Dilaudid) 2 mg Q4H PRN PO PAIN LEVEL 1-5 Last administered on 05/21/17 04:59; Admin Dose 2 MG; Start 05/17/17 at 06:30 Oxycodone HCl (Oxycontin) 10 mg BID PO Last administered on 05/22/17 08:52; Admin Dose 10 MG; Start 05/17/17 at 09:00 Trazodone HCl (Desyrel) 25 mg HS PO Last administered on 05/21/17 20:32; Admin Dose 25 MG; Start 05/17/17 at 21:00 Senna/Docusate Sodium (Senokot-S) 1 tab AM PO Last administered on 05/22/17 08:50; Admin Dose 1 TAB; Start 05/17/17 at 09:00 Hydromorphone HCl (Dilaudid) 2 mg Q3 PRN IV PAIN Last administered on 03:32; Admin Dose 2 MG; Start 05/18/17 at 18:12 Dexamethasone (Decadron) 2 mg BID PO Last administered on 05/22/17 08:50; Admin Dose 2 MG; Start 05/20/17 at 15:37 CHARLOTTE DÍAZ M.D. May 22, 2017 13:44
[2017-05-22] MEDS: traZODone 50 MG TAB PO SCH (20:46)
[2017-05-23] VITALS (8 sets, daily range): BP systolic 100–126; BP diastolic 62–80; PULSE 80–110; RESP 17–20
[2017-05-23] MEDS: HYDROmorphONE 2 MG TAB PO PRN (00:12)
[2017-05-23] MEDS: HYDROmorphONE 2 MG/ML SYG IV PRN ×2 (04:14→17:04)
--- NOTE | 2017-05-23 07:45 | CONS ---
Date/Time of Note Date/Time of Note DATE: 05/23/17 TIME: 07:42 Assessment/Plan Assessment/Plan Chief Complaint/Hosp Course This is a 41-year-old female without a past medical history of major medical problems who presented to [facility] emergency room with increasing shortness of breath. During workup she was found to have a breast mass biopsy with preliminary report of malignancy. Patient has been complaining of increasing back pain primarily her upper thoracic spine rated 5/ 10. She denies pain radiating into her arms or anterior chest wall or down into her lower back, she states the pain is an electric shock type of discomfort. She is not nauseous associated with the pain with current pain control medication she still has discomfort which causes her sleepless nights. Pain has not been increasing in severity since she has been hospitalized, pain began approximately 3 days prior. Pain affects her physical functioning mood and sleeping patterns so much so she is forced to sit up at night secondary to pain and shortness of breath. With the pain she is not complaining of nausea vomiting itching until cloudiness sweating fatigue or drowsiness. She states she is fearful and taking morphine that she may become nauseous therefore she is only taking her p.o. medications which is [place]. There is no past medical history of opioid use she has been using only nonsteroidal anti-inflammatory medications prior to hospitalization. There is no past medical history of alcohol consumption or drug use, altercation with police or motor vehicle accidents. Patient has not asked for early renewals of her medications currently prescribed. Also she is not using current medications and response to situational stressors. Patient's overall severity of the pain is moderate although clinically she appears to be very uncomfortable. Problems: Additional Assessment/Plan She is much more comfortable today on current regimen of OxyContin Contin and as needed doses of p.o. or IV Dilaudid depending upon the severity of her chest and abdominal pain. Denies any side effects including nausea vomiting pruritus mental cloudiness is not Axon for escalations overdose if anything she is concerned about overuse. She does not appear to be in any distress at this time. Pain has decreased from 05/08-3/10. Consultation Date/Type/Reason Admit Date/Time May 14, 2017 at 13:40 Constitutional: other (Weight loss), poor po Respiratory: pleuritic pain, shortness of breath Cardiovascular: no complaints, No chest pain, No edema, No lightheadedness, No orthopenea, No other, No palpitations, No paroxysmal nocturnal dyspnea Gastrointestinal: no complaints, No blood, No constipation, No decreased appetite, No diarrhea, No flatus, No nausea, No other, No pain, No passing stool, No vomiting Musculoskeletal: back pain, bone/joint pain, other (Refer to history of present illness) Neurologic: headache, no complaints, No confusion, No dizziness, No focal-weakness, No other, No seizure, No syncope Psychological: no complaints Past Medical History Medical History: no pertinent history Social History Smoking Status: Current every day smoker (15 years 1/2 ppd) Exam/Review of Systems Vital Signs Vitals Vital Signs Date Time Temp Pulse Resp B/P Pulse Ox O2 Delivery O2 Flow Rate FiO2 05/23/17 07:23 98.1 17 126/80 98 05/23/17 05:47 5.0 05/23/17 04:36 Nasal Cannula 05/23/17 04:01 110 Intake and Output 05/22/17 05/22/17 05/23/17 15:00 23:00 07:00 Intake Total 600 ml 650 ml Balance 600 ml 650 ml Exam Constitutional: alert, oriented, well developed, No distress, No frail, No non-verbal, No obese, No other Extremities: normal pulses, No calf tenderness, No clubbing, No cyanosis, No edema, No other, No palpable cord, No pitting pedal edema, No tenderness Neurological: PERSONAL CARE AID II-XII intact, nl mental status, nl speech, nl strength, No DTR's symmetric, No confused, No focal weakness, No lethargic, No numbness , No other, No reflexes, No unresponsive Medications Medications Current Medications Acetaminophen (Tylenol Tab) 650 mg Q6H PRN PO PAIN LEVEL 1-3 OR FEVER Last administered on 05/18/17t 04:56; Admin Dose 650 MG; Start 05/14/17 at 18:00 Docusate Sodium (Colace) 100 mg Q12H PRN PO CONSTIPATION; Start 05/14/17 at 18 :00 Nicotine Polacrilex (Nicorette) 2 mg Q2H PRN BUCCAL agitation; Start 05/14/17 at 18:00 Ondansetron HCl (Zofran Inj) 4 mg Q4 PRN IV NAUSEA AND/OR VOMITING Last administered on 05/14/17 20:45; Admin Dose 4 MG; Start 05/14/17 at 20:30 Enoxaparin Sodium (Lovenox) 40 mg DAILY SC Last administered on 05/22/17 08: 58; Admin Dose 40 MG; Start 05/16/17 at 09:00 Lorazepam (Ativan) 1 mg Q6H PRN PO ANXIETY Last administered on 05/18/17 22: 00; Admin Dose 1 MG; Start 05/16/17 at 15:30 Hydromorphone HCl (Dilaudid) 2 mg Q4H PRN PO PAIN LEVEL 1-5 Last administered on 05/23/17 00:12; Admin Dose 2 MG; Start 05/17/17 at 06:30 Oxycodone HCl (Oxycontin) 10 mg BID PO Last administered on 05/22/17 20:46; Admin Dose 10 MG; Start 05/17/17 at 09:00 Trazodone HCl (Desyrel) 25 mg HS PO Last administered on 05/22/17 20:46; Admin Dose 25 MG; Start 05/17/17 at 21:00 Senna/Docusate Sodium (Senokot-S) 1 tab AM PO Last administered on 05/22/17 08:50; Admin Dose 1 TAB; Start 05/17/17 at 09:00 Hydromorphone HCl (Dilaudid) 2 mg Q3 PRN IV PAIN Last administered on 04:14; Admin Dose 2 MG; Start 05/18/17 at 18:12 Dexamethasone (Decadron) 2 mg BID PO Last administered on 05/22/17 20:46; Admin Dose 2 MG; Start 05/20/17 at 15:37 BRIANDA HERNANDEZ May 23, 2017 07:45
[2017-05-23] MEDS: oxyCODONE (CR) 10 MG TAB [oxyCONTIN] PO SCH ×2 (09:33→20:10)
[2017-05-23] MEDS: SENNA/DOCUSATE NA (8.6MG/50MG) TAB PO SCH (09:34)
[2017-05-23] MEDS: DEXAMETHASONE 2 MG TAB PO SCH ×2 (09:34→20:10)
[2017-05-23] MEDS: ENOXAPARIN 40 MG/0.4 ML SYG SC SCH (09:46)
--- NOTE | 2017-05-23 10:15 | PN ---
Date/Time of Note Date/Time of Note DATE: 05/23/17 TIME: 10:05 Assessment/Plan VTE Prophylaxis VTE Prophylaxis Intervention: LMWH Lines/Catheters IV Catheter Type (from Nrsg): Saline Lock Assessment/Plan Chief Complaint/Hosp Course Assessment/Plan: 41 yo F presented for SOB, found to have R breast Ca with malignant pleural effusion and bone mets. 1. breast ca: -US guided core breast biopsy 05.17: invasive ductal ca. [place]/ER/ HER2 pending as this will dictate treatment plan, fernando medina, + malignant cytology -onc on consult--> fernando vuong cs--> will get radiation today -completed abx for CAP coverage -continue pain and anxiety control 2. DVT prophx-low molecular weight heparin sp CM consult as will need home o2 on [id number] with them on this Problems: Subjective 24 Hr Interval Summary Free Text/Dictation No acute events overnight, seen by pain management and hematology oncology team yesterday. Awaiting radiation for later today. Exam/Review of Systems Vital Signs Vitals Vital Signs Date Time Temp Pulse Resp B/P Pulse Ox O2 Delivery O2 Flow Rate FiO2 05/23/17 08:39 105 05/23/17 07:23 98.1 17 126/80 98 05/23/17 05:47 5.0 05/23/17 04:36 Nasal Cannula Intake and Output 05/22/17 05/22/17 05/23/17 15:00 23:00 07:00 Intake Total 600 ml 650 ml Balance 600 ml 650 ml Exam thin, sitting in bed, in mild distress tachy heart rate no mrg abd soft no rashes Medications Medications Current Medications Acetaminophen (Tylenol Tab) 650 mg Q6H PRN PO PAIN LEVEL 1-3 OR FEVER Last administered on 05/18/17 04:56; Admin Dose 650 MG; Start 05/14/17 at 18:00 Docusate Sodium (Colace) 100 mg Q12H PRN PO CONSTIPATION; Start 05/14/17 at 18 :00 Nicotine Polacrilex (Nicorette) 2 mg Q2H PRN BUCCAL agitation; Start 05/14/17 at 18:00 Ondansetron HCl (Zofran Inj) 4 mg Q4 PRN IV NAUSEA AND/OR VOMITING Last administered on 05/14/17 20:45; Admin Dose 4 MG; Start 05/14/17 at 20:30 Enoxaparin Sodium (Lovenox) 40 mg DAILY SC Last administered on 05/23/17 09: 46; Admin Dose 40 MG; Start 05/16/17 at 09:00 Lorazepam (Ativan) 1 mg Q6H PRN PO ANXIETY Last administered on 05/18/17 22: 00; Admin Dose 1 MG; Start 05/16/17 at 15:30 Hydromorphone HCl (Dilaudid) 2 mg Q4H PRN PO PAIN LEVEL 1-5 Last administered on 05/23/17 00:12; Admin Dose 2 MG; Start 05/17/17 at 06:30 Oxycodone HCl (Oxycontin) 10 mg BID PO Last administered on 05/23/17 09:33; Admin Dose 10 MG; Start 05/17/17 at 09:00 Trazodone HCl (Desyrel) 25 mg HS PO Last administered on 05/22/17 20:46; Admin Dose 25 MG; Start 05/17/17 at 21:00 Senna/Docusate Sodium (Senokot-S) 1 tab AM PO Last administered on 05/23/17 09:34; Admin Dose 1 TAB; Start 05/17/17 at 09:00 Hydromorphone HCl (Dilaudid) 2 mg Q3 PRN IV PAIN Last administered on 04:14; Admin Dose 2 MG; Start 05/18/17 at 18:12 Dexamethasone (Decadron) 2 mg BID PO Last administered on 05/23/17 09:34; Admin Dose 2 MG; Start 05/20/17 at 15:37 HAYLEY RANDLE May 23, 2017 10:15
[2017-05-23] MEDS: LORAZEPAM 1 MG TAB PO PRN (12:31)
[2017-05-23] MEDS: traZODone 50 MG TAB PO SCH (20:10)
[2017-05-24] MEDS: HYDROmorphONE 2 MG TAB PO PRN ×2 (01:13→10:01)
[2017-05-24] MEDS: HYDROmorphONE 2 MG/ML SYG IV PRN ×5 (02:06→22:44)
[2017-05-24 02:36] VITALS: BP 109/73; RESP 20
[2017-05-24 08:15] VITALS: BP 102/64; RESP 18
[2017-05-24] MEDS: SENNA/DOCUSATE NA (8.6MG/50MG) TAB PO SCH (08:54)
[2017-05-24] MEDS: oxyCODONE (CR) 10 MG TAB [oxyCONTIN] PO SCH ×2 (08:55→20:23)
[2017-05-24] MEDS: DEXAMETHASONE 2 MG TAB PO SCH ×2 (08:55→20:23)
[2017-05-24] MEDS: ENOXAPARIN 40 MG/0.4 ML SYG SC SCH (09:07)
[2017-05-24] MEDS: LORAZEPAM 1 MG TAB PO PRN (10:01)
--- NOTE | 2017-05-24 10:49 | PN ---
Date/Time of Note Date/Time of Note DATE: 05/24/17 TIME: 10:48 Assessment/Plan VTE Prophylaxis VTE Prophylaxis Intervention: LMWH Lines/Catheters IV Catheter Type (from Nrsg): Saline Lock Assessment/Plan Chief Complaint/Hosp Course Assessment/Plan: 41 yo F presented for SOB, found to have R breast Ca with malignant pleural effusion and bone mets. 1. breast ca: -US guided core breast biopsy 05.17: invasive ductal ca. [place]/ER/ HER2 pending, sp bl thoras, + malignant cytology -onc on consult--> fernando vuong cs--> had initial radiation evaluation yesterday , scheduled for first treatment of radiation later today -completed abx for CAP coverage -continue pain and anxiety control 2. DVT prophx-low molecular weight heparin sp CM consult as will need home o2 on [id number] with them on this Problems: Subjective 24 Hr Interval Summary Free Text/Dictation Patient had evaluation for radiation yesterday, awaiting therapy for later this afternoon. States pain presently is under adequate control. No acute events overnight. Exam/Review of Systems Vital Signs Vitals Vital Signs Date Time Temp Pulse Resp B/P Pulse Ox O2 Delivery O2 Flow Rate FiO2 05/24/17 08:15 97.8 100 18 102/64 91 05/24/17 01:42 3.5 05/23/17 20:00 Nasal Cannula Intake and Output 05/23/17 05/23/17 05/24/17 15:00 23:00 07:00 Intake Total 990 ml 240 ml Balance 990 ml 240 ml Exam thin, sitting in bed, in mild distress tachy heart rate no mrg abd soft no rashes Medications Medications Current Medications Acetaminophen (Tylenol Tab) 650 mg Q6H PRN PO PAIN LEVEL 1-3 OR FEVER Last administered on 05/18/17 04:56; Admin Dose 650 MG; Start 05/14/17 at 18:00 Docusate Sodium (Colace) 100 mg Q12H PRN PO CONSTIPATION; Start 05/14/17 at 18 :00 Nicotine Polacrilex (Nicorette) 2 mg Q2H PRN BUCCAL agitation; Start 05/14/17 at 18:00 Ondansetron HCl (Zofran Inj) 4 mg Q4 PRN IV NAUSEA AND/OR VOMITING Last administered on 05/14/17 20:45; Admin Dose 4 MG; Start 05/14/17 at 20:30 Enoxaparin Sodium (Lovenox) 40 mg DAILY SC Last administered on 05/24/17 09: 07; Admin Dose 40 MG; Start 05/16/17 at 09:00 Lorazepam (Ativan) 1 mg Q6H PRN PO ANXIETY Last administered on 05/24/17 10: 01; Admin Dose 1 MG; Start 05/16/17 at 15:30 Hydromorphone HCl (Dilaudid) 2 mg Q4H PRN PO PAIN LEVEL 1-5 Last administered on 05/24/17 10:01; Admin Dose 2 MG; Start 05/17/17 at 06:30 Oxycodone HCl (Oxycontin) 10 mg BID PO Last administered on 05/24/17 08:55; Admin Dose 10 MG; Start 05/17/17 at 09:00 Trazodone HCl (Desyrel) 25 mg HS PO Last administered on 05/23/17 20:10; Admin Dose 25 MG; Start 05/17/17 at 21:00 Senna/Docusate Sodium (Senokot-S) 1 tab AM PO Last administered on 05/24/17 08:54; Admin Dose 1 TAB; Start 05/17/17 at 09:00 Hydromorphone HCl (Dilaudid) 2 mg Q3 PRN IV PAIN Last administered on 06:16; Admin Dose 2 MG; Start 05/18/17 at 18:12 Dexamethasone (Decadron) 2 mg BID PO Last administered on 05/24/17 08:55; Admin Dose 2 MG; Start 05/20/17 at 15:37 HAYLEY RANDLE May 24, 2017 10:49
[2017-05-24 16:13] VITALS: BP 106/70; RESP 18
--- NOTE | 2017-05-24 18:30 | CONS ---
Date/Time of Note Date/Time of Note DATE: 05/24/17 TIME: 18:28 Assessment/Plan Assessment/Plan Chief Complaint/Hosp Course 41 yo with Impression: # 4cm R Breast Mass with right axillary lymphadenopathy - now confirmed as ER+/ [place]+/Her2 + metastatic breast cancer -once patient completes her palliative radiation will plan to start chemotherapy with THP -CT A/P also demonstrates liver lesions #Large Bilateral Pleural Effusions -s/p thoracentesis -f/u fluid cytology #Lytic Lesions wit compression fractures at C5, T10 and L2 -bone scan revealed numerous foci of increased tracer activity are seen in the frontal calvarium, upper sternum, spine, left sacroiliac joint, right mid anterior rib cag -pt has been evaluated by Rad Onc to start palliative XRT -continue po dilaudid and norco for bone pain #Pneumonia-pt with elevated lactate -continue antibiotics #pain-continue current pain regimen Problems: Consultation Date/Type/Reason Admit Date/Time May 14, 2017 at 13:40 Initial Consult Date 05/17/17 Type of Consultation: Oncology Reason for Consultation metastatic breast cancer Referring Provider: KRIS CLAYTON MD 24 HR Interval Summary Free Text/Dictation pt seen by XRT yesterday for radiation planning. states pain is under better control Exam/Review of Systems Vital Signs Vitals Vital Signs Date Time Temp Pulse Resp B/P Pulse Ox O2 Delivery O2 Flow Rate FiO2 05/24/17 16:13 98.0 100 18 106/70 90 05/24/17 08:00 Nasal Cannula 4.0 Intake and Output 05/23/17 05/23/17 05/24/17 15:00 23:00 07:00 Intake Total 990 ml 240 ml Balance 990 ml 240 ml Exam Constitutional: alert Psych: no complaints Head: normocephalic Eyes: nl conjunctiva, nl lids ENMT: nl external ears & nose Neck: supple Respiratory: diminished breath sounds Gastrointestinal: soft Musculoskeletal: nl extremities to inspection Medications Medications Current Medications Acetaminophen (Tylenol Tab) 650 mg Q6H PRN PO PAIN LEVEL 1-3 OR FEVER Last administered on 05/18/17t 04:56; Admin Dose 650 MG; Start 05/14/17 at 18:00 Docusate Sodium (Colace) 100 mg Q12H PRN PO CONSTIPATION; Start 05/14/17 at 18 :00 Nicotine Polacrilex (Nicorette) 2 mg Q2H PRN BUCCAL agitation; Start 05/14/17 at 18:00 Ondansetron HCl (Zofran Inj) 4 mg Q4 PRN IV NAUSEA AND/OR VOMITING Last administered on 05/14/17 20:45; Admin Dose 4 MG; Start 05/14/17 at 20:30 Enoxaparin Sodium (Lovenox) 40 mg DAILY SC Last administered on 05/24/17 09: 07; Admin Dose 40 MG; Start 05/16/17 at 09:00 Lorazepam (Ativan) 1 mg Q6H PRN PO ANXIETY Last administered on 05/24/17 10: 01; Admin Dose 1 MG; Start 05/16/17 at 15:30 Hydromorphone HCl (Dilaudid) 2 mg Q4H PRN PO PAIN LEVEL 1-5 Last administered on 05/24/17 10:01; Admin Dose 2 MG; Start 05/17/17 at 06:30 Oxycodone HCl (Oxycontin) 10 mg BID PO Last administered on 05/24/17 08:55; Admin Dose 10 MG; Start 05/17/17 at 09:00 Trazodone HCl (Desyrel) 25 mg HS PO Last administered on 05/23/17 20:10; Admin Dose 25 MG; Start 05/17/17 at 21:00 Senna/Docusate Sodium (Senokot-S) 1 tab AM PO Last administered on 05/24/17 08:54; Admin Dose 1 TAB; Start 05/17/17 at 09:00 Hydromorphone HCl (Dilaudid) 2 mg Q3 PRN IV PAIN Last administered on 15:56; Admin Dose 2 MG; Start 05/18/17 at 18:12 Dexamethasone (Decadron) 2 mg BID PO Last administered on 05/24/17 08:55; Admin Dose 2 MG; Start 05/20/17 at 15:37 CHARLOTTE DÍAZ M.D. May 24, 2017 18:30
[2017-05-24] MEDS: traZODone 50 MG TAB PO SCH (20:23)
[2017-05-24 21:13] VITALS: BP 126/76; RESP 20
[2017-05-25] MEDS: HYDROmorphONE 2 MG/ML SYG IV PRN ×6 (01:46→19:18)
[2017-05-25 08:29] VITALS: BP 130/80; RESP 20
[2017-05-25] MEDS: SENNA/DOCUSATE NA (8.6MG/50MG) TAB PO SCH (08:43)
[2017-05-25] MEDS: DEXAMETHASONE 2 MG TAB PO SCH ×2 (08:43→22:11)
[2017-05-25] MEDS: oxyCODONE (CR) 10 MG TAB [oxyCONTIN] PO SCH ×2 (08:44→22:11)
[2017-05-25] MEDS: ENOXAPARIN 40 MG/0.4 ML SYG SC SCH (08:52)
--- NOTE | 2017-05-25 08:52 | CONS ---
Date/Time of Note Date/Time of Note DATE: 05/25/17 TIME: 08:48 Assessment/Plan Assessment/Plan Chief Complaint/Hosp Course 41 yo with Impression: # 4cm R Breast Mass with right axillary lymphadenopathy - now confirmed as ER+/ [place]+/Her2 + metastatic breast cancer -pt will need port a cath in anticipation of chemotherapy -Echo in anticipation of Herceptin -once patient completes her palliative radiation will plan to start chemotherapy with THP -CT A/P also demonstrates liver lesions #Large Bilateral Pleural Effusions -s/p thoracentesis -f/u fluid cytology #Lytic Lesions wit compression fractures at C5, T10 and L2 -bone scan revealed numerous foci of increased tracer activity are seen in the frontal calvarium, upper sternum, spine, left sacroiliac joint, right mid anterior rib cag -pt has been evaluated by Rad Onc to start palliative XRT -continue po dilaudid and norco for bone pain #Pneumonia-pt with elevated lactate -continue antibiotics #pain-continue current pain regimen Problems: Consultation Date/Type/Reason Admit Date/Time May 14, 2017 at 13:40 Initial Consult Date 05/17/17 Type of Consultation: Oncology Reason for Consultation metastatic breast cancer Referring Provider: KRIS CLAYTON MD 24 HR Interval Summary Free Text/Dictation pt currently states pain is under control. to start radiation today Exam/Review of Systems Vital Signs Vitals Vital Signs Date Time Temp Pulse Resp B/P Pulse Ox O2 Delivery O2 Flow Rate FiO2 05/25/17 08:29 97.8 100 20 130/80 96 05/25/17 05:26 4.0 05/24/17 20:00 Nasal Cannula Intake and Output 05/24/17 05/24/17 05/25/17 15:00 23:00 07:00 Intake Total 960 ml 800 ml Balance 960 ml 800 ml Exam Constitutional: alert, oriented Psych: no complaints Head: normocephalic Eyes: nl conjunctiva ENMT: nl external ears & nose Neck: non-tender, supple Respiratory: diminished breath sounds Cardiovascular: regular rate and rhythm Gastrointestinal: soft Musculoskeletal: nl extremities to inspection Medications Medications Current Medications Acetaminophen (Tylenol Tab) 650 mg Q6H PRN PO PAIN LEVEL 1-3 OR FEVER Last administered on 05/18/17t 04:56; Admin Dose 650 MG; Start 05/14/17 at 18:00 Docusate Sodium (Colace) 100 mg Q12H PRN PO CONSTIPATION; Start 05/14/17 at 18 :00 Nicotine Polacrilex (Nicorette) 2 mg Q2H PRN BUCCAL agitation; Start 05/14/17 at 18:00 Ondansetron HCl (Zofran Inj) 4 mg Q4 PRN IV NAUSEA AND/OR VOMITING Last administered on 05/14/17 20:45; Admin Dose 4 MG; Start 05/14/17 at 20:30 Enoxaparin Sodium (Lovenox) 40 mg DAILY SC Last administered on 05/24/17 09: 07; Admin Dose 40 MG; Start 05/16/17 at 09:00 Lorazepam (Ativan) 1 mg Q6H PRN PO ANXIETY Last administered on 05/24/17 10: 01; Admin Dose 1 MG; Start 05/16/17 at 15:30 Hydromorphone HCl (Dilaudid) 2 mg Q4H PRN PO PAIN LEVEL 1-5 Last administered on 05/24/17 10:01; Admin Dose 2 MG; Start 05/17/17 at 06:30 Oxycodone HCl (Oxycontin) 10 mg BID PO Last administered on 05/24/17 20:23; Admin Dose 10 MG; Start 05/17/17 at 09:00 Trazodone HCl (Desyrel) 25 mg HS PO Last administered on 05/24/17 20:23; Admin Dose 25 MG; Start 05/17/17 at 21:00 Senna/Docusate Sodium (Senokot-S) 1 tab AM PO Last administered on 05/24/17 08:54; Admin Dose 1 TAB; Start 05/17/17 at 09:00 Hydromorphone HCl (Dilaudid) 2 mg Q3 PRN IV PAIN Last administered on 04:48; Admin Dose 2 MG; Start 05/18/17 at 18:12 Dexamethasone (Decadron) 2 mg BID PO Last administered on 05/24/17 20:23; Admin Dose 2 MG; Start 05/20/17 at 15:37 CHARLOTTE DÍAZ M.D. May 25, 2017 08:52
--- NOTE | 2017-05-25 11:21 | PN ---
Date/Time of Note Date/Time of Note DATE: 05/25/17 TIME: 11:13 Assessment/Plan VTE Prophylaxis VTE Prophylaxis Intervention: LMWH Lines/Catheters IV Catheter Type (from Nrs): Saline Lock Assessment/Plan Chief Complaint/Hosp Course Assessment/Plan: 41 yo F presented for SOB, found to have R breast Ca with malignant pleural effusion and bone mets. 1. breast ca: -US guided core breast biopsy 05.17: invasive ductal ca- now confirmed as ER+/[place]+/Her2 + metastatic breast cancer -onc on consult--> fernando vuong cs--> had initial radiation evaluation 2 days ago, scheduled for first treatment of radiation later today -Per hematology oncology team, also will get port a cath placement and scheduled for chemotherapy to begin after radiation is given, likely in the next few days. -completed abx for CAP coverage -continue pain and anxiety control 2. DVT prophx-low molecular weight heparin sp CM consult as will need home o2 on [id number] with them on this Problems: Subjective 24 Hr Interval Summary Free Text/Dictation Per nursing staff patient not able to function yesterday due to patient problem , but again scheduled for today. Seen by hematology oncology team as well, awaiting Port-A-Cath placement and subsequent chemo to be started in the next few days. No acute events overnight otherwise, pain is adequately controlled at this point. Exam/Review of Systems Vital Signs Vitals Vital Signs Date Time Temp Pulse Resp B/P Pulse Ox O2 Delivery O2 Flow Rate FiO2 05/25/17 09:19 4.0 05/25/17 08:29 97.8 100 20 130/80 96 05/24/17 20:00 Nasal Cannula Intake and Output 05/24/17 05/24/17 05/25/17 15:00 23:00 07:00 Intake Total 960 ml 800 ml Balance 960 ml 800 ml Exam thin, sitting in bed, in mild distress tachy heart rate no mrg abd soft no rashes Results Results 24 hrs Laboratory Tests Test 05/25/17 10:10 Prothrombin Time 13.9 Prothrombin Time Ratio 1.1 INR International Normalized Ratio 1.07 Activated Partial Thromboplast Time 36.0 H Medications Medications Current Medications Acetaminophen (Tylenol Tab) 650 mg Q6H PRN PO PAIN LEVEL 1-3 OR FEVER Last administered on 05/18/17t 04:56; Admin Dose 650 MG; Start 05/14/17 at 18:00 Docusate Sodium (Colace) 100 mg Q12H PRN PO CONSTIPATION; Start 05/14/17 at 18 :00 Nicotine Polacrilex (Nicorette) 2 mg Q2H PRN BUCCAL agitation; Start 05/14/17 at 18:00 Ondansetron HCl (Zofran Inj) 4 mg Q4 PRN IV NAUSEA AND/OR VOMITING Last administered on 05/14/17 20:45; Admin Dose 4 MG; Start 05/14/17 at 20:30 Enoxaparin Sodium (Lovenox) 40 mg DAILY SC Last administered on 05/25/17 08: 52; Admin Dose 40 MG; Start 05/16/17 at 09:00 Lorazepam (Ativan) 1 mg Q6H PRN PO ANXIETY Last administered on 05/24/17 10: 01; Admin Dose 1 MG; Start 05/16/17 at 15:30 Hydromorphone HCl (Dilaudid) 2 mg Q4H PRN PO PAIN LEVEL 1-5 Last administered on 05/24/17 10:01; Admin Dose 2 MG; Start 05/17/17 at 06:30 Oxycodone HCl (Oxycontin) 10 mg BID PO Last administered on 05/25/17 08:44; Admin Dose 10 MG; Start 05/17/17 at 09:00 Trazodone HCl (Desyrel) 25 mg HS PO Last administered on 05/24/17 20:23; Admin Dose 25 MG; Start 05/17/17 at 21:00 Senna/Docusate Sodium (Senokot-S) 1 tab AM PO Last administered on 05/25/17 08:43; Admin Dose 1 TAB; Start 05/17/17 at 09:00 Hydromorphone HCl (Dilaudid) 2 mg Q3 PRN IV PAIN Last administered on 08:43; Admin Dose 2 MG; Start 05/18/17 at 18:12 Dexamethasone (Decadron) 2 mg BID PO Last administered on 05/25/17 08:43; Admin Dose 2 MG; Start 05/20/17 at 15:37 HAYLEY RANDLE May 25, 2017 11:21
[2017-05-25 14:51] VITALS: BP 129/75; RESP 20
[2017-05-25] MEDS: ONDANSETRON 4 MG INJ IV PRN (19:17)
[2017-05-25 20:26] VITALS: BP 119/84; RESP 18
[2017-05-25] MEDS: traZODone 50 MG TAB PO SCH (22:11)
[2017-05-26 02:25] VITALS: BP 118/80; RESP 20
[2017-05-26] MEDS: HYDROmorphONE 2 MG/ML SYG IV PRN ×4 (02:44→17:01)
[2017-05-26] MEDS: ONDANSETRON 4 MG INJ IV PRN ×2 (04:03→15:12)
[2017-05-26 07:31] VITALS: BP 102/61; RESP 20
[2017-05-26] MEDS: DEXAMETHASONE 2 MG TAB PO SCH ×2 (08:47→20:19)
[2017-05-26] MEDS: SENNA/DOCUSATE NA (8.6MG/50MG) TAB PO SCH (08:47)
[2017-05-26] MEDS: oxyCODONE (CR) 10 MG TAB [oxyCONTIN] PO SCH ×2 (08:47→20:19)
[2017-05-26] MEDS: ENOXAPARIN 40 MG/0.4 ML SYG SC SCH (08:54)
--- NOTE | 2017-05-26 11:06 | PN ---
Date/Time of Note Date/Time of Note DATE: 05/26/17 TIME: 11:04 Assessment/Plan VTE Prophylaxis VTE Prophylaxis Intervention: LMWH Lines/Catheters IV [facility] Saline Lock Assessment/Plan Chief Complaint/Hosp Course Assessment/Plan: 41 yo F presented for SOB, found to have R breast Ca with malignant pleural effusion and bone mets. 1. breast ca: -US guided core breast biopsy 05.17: invasive ductal ca- now confirmed as ER+/[place]+/Her2 + metastatic breast cancer -onc on consult--> sp radonc cs--> continue radiation treatment for rad Onc recommendations -Per hematology oncology team, also will get port a cath placement and scheduled for chemotherapy to begin after radiation is given, likely on Sunday. -completed abx for CAP coverage -continue pain and anxiety control 2. DVT prophx-low molecular weight heparin sp CM consult as will need home o2 on [id number] with them on this Problems: Subjective 24 Hr Interval Summary Free Text/Dictation Patient received radiation yesterday. No acute events overnight. Exam/Review of Systems Vital Signs Vitals Vital Signs Date Time Temp Pulse Resp B/P Pulse Ox O2 Delivery O2 Flow Rate FiO2 05/26/17 07:31 98.4 105 20 102/61 95 05/26/17 01:14 4.0 05/25/17 20:00 Nasal Cannula Intake and Output 05/25/17 05/25/17 05/26/17 15:00 23:00 07:00 Intake Total 720 ml 900 ml Balance 720 ml 900 ml Exam thin, sitting in bed, in mild distress tachy heart rate no mrg abd soft no rashes Results Result Diagram: 05/25/17 1216 05/25/17 1216 Results 24 hrs Laboratory Tests Test 05/25/17 12:16 White Blood Count 15.4 H Red Blood Count 4.17 L Hemoglobin 11.5 L Hematocrit 36.2 L Mean Corpuscular Volume 86.8 Mean Corpuscular Hemoglobin 27.6 L Mean Corpuscular Hemoglobin Concent 31.8 L Red Cell Distribution Width 14.1 Platelet Count 894 #H Mean Platelet Volume 9.5 Neutrophils % 86.8 H Lymphocytes % 5.4 L Monocytes % 7.0 Eosinophils % 0.1 Basophils % 0.1 Nucleated Red Blood Cells % 0.0 Neutrophils # 13.3 H Lymphocytes # 0.8 Monocytes # 1.1 H Eosinophils # 0.0 Basophils # 0.0 Nucleated Red Blood Cells # 0.0 Sodium Level 132 L Potassium Level 3.9 Chloride Level 85 L Carbon Dioxide Level 37 H Anion Gap 14 Blood Urea Nitrogen 12 Creatinine 0.47 Glucose Level 107 Lactic Acid Level 1.5 Calcium Level 9.3 Phosphorus Level 4.2 Magnesium Level 2.0 Medications Medications Current Medications Acetaminophen (Tylenol Tab) 650 mg Q6H PRN PO PAIN LEVEL 1-3 OR FEVER Last administered on 05/18/17 04:56; Admin Dose 650 MG; Start 05/14/17 at 18:00 Docusate Sodium (Colace) 100 mg Q12H PRN PO CONSTIPATION; Start 05/14/17 at 18 :00 Nicotine Polacrilex (Nicorette) 2 mg Q2H PRN BUCCAL agitation; Start 05/14/17 at 18:00 Ondansetron HCl (Zofran Inj) 4 mg Q4 PRN IV NAUSEA AND/OR VOMITING Last administered on 05/26/17 04:03; Admin Dose 4 MG; Start 05/14/17 at 20:30 Enoxaparin Sodium (Lovenox) 40 mg DAILY SC Last administered on 05/26/17 08: 54; Admin Dose 40 MG; Start 05/16/17 at 09:00 Lorazepam (Ativan) 1 mg Q6H PRN PO ANXIETY Last administered on 05/24/17 10: 01; Admin Dose 1 MG; Start 05/16/17 at 15:30 Hydromorphone HCl (Dilaudid) 2 mg Q4H PRN PO PAIN LEVEL 1-5 Last administered on 05/24/17 10:01; Admin Dose 2 MG; Start 05/17/17 at 06:30 Oxycodone HCl (Oxycontin) 10 mg BID PO Last administered on 05/26/17 08:47; Admin Dose 10 MG; Start 05/17/17 at 09:00 Trazodone HCl (Desyrel) 25 mg HS PO Last administered on 05/25/17 22:11; Admin Dose 25 MG; Start 05/17/17 at 21:00 Senna/Docusate Sodium (Senokot-S) 1 tab AM PO Last administered on 05/26/17 08:47; Admin Dose 1 TAB; Start 05/17/17 at 09:00 Hydromorphone HCl (Dilaudid) 2 mg Q3 PRN IV PAIN Last administered on 05:55; Admin Dose 2 MG; Start 05/18/17 at 18:12 Dexamethasone (Decadron) 2 mg BID PO Last administered on 05/26/17 08:47; Admin Dose 2 MG; Start 05/20/17 at 15:37 HAYLEY RANDLE May 26, 2017 11:06
[2017-05-26] MEDS: HYDROmorphONE 2 MG TAB PO PRN (13:41)
[2017-05-26 20:00] VITALS: BP 124/93; RESP 18
[2017-05-26] MEDS: traZODone 50 MG TAB PO SCH (20:16)
[2017-05-27] MEDS: ONDANSETRON 4 MG INJ IV PRN (00:30)
[2017-05-27] MEDS: HYDROmorphONE 2 MG/ML SYG IV PRN ×5 (00:31→17:36)
[2017-05-27 02:17] VITALS: BP 102/62; RESP 18
[2017-05-27 07:00] VITALS: BP 95/62; RESP 18
[2017-05-27] MEDS: SENNA/DOCUSATE NA (8.6MG/50MG) TAB PO SCH (09:54)
[2017-05-27] MEDS: DEXAMETHASONE 2 MG TAB PO SCH ×2 (09:54→20:50)
[2017-05-27] MEDS: oxyCODONE (CR) 10 MG TAB [oxyCONTIN] PO SCH ×2 (09:54→20:49)
[2017-05-27] MEDS: ENOXAPARIN 40 MG/0.4 ML SYG SC SCH (09:55)
--- NOTE | 2017-05-27 11:48 | CONS ---
Date/Time of Note Date/Time of Note DATE: 05/27/17 TIME: 11:44 Assessment/Plan Assessment/Plan Chief Complaint/Hosp Course 41 yo with Impression: # 4cm R Breast Mass with right axillary lymphadenopathy - now confirmed as ER+/ [place]+/Her2 + metastatic breast cancer -pt will need port a cath in anticipation of chemotherapy. scheduled for tomorrow -Echo in anticipation of Herceptin. Echo done. waiting for read -once patient completes her palliative radiation will plan to start chemotherapy with THP -CT A/P also demonstrates liver lesions #Large Bilateral Pleural Effusions -s/p thoracentesis -f/u fluid cytology #Lytic Lesions wit compression fractures at C5, T10 and L2 -bone scan revealed numerous foci of increased tracer activity are seen in the frontal calvarium, upper sternum, spine, left sacroiliac joint, right mid anterior rib cag -continue with 10 fractions of XRT -pt to receive 3 rd dose tomorrow #Pneumonia-pt with elevated lactate -continue antibiotics #pain-continue current pain regimen -continue po dilaudid and norco for bone pain Problems: Consultation Date/Type/Reason Admit Date/Time May 14, 2017 at 13:40 Initial Consult Date 05/17/17 Type of Consultation: Oncology Reason for Consultation metastatic breast cancer Referring Provider: KRSI CLAYTON MD 24 HR Interval Summary Free Text/Dictation pt has since started radiation. states her pain increased while being maneuvered during radiation Exam/Review of Systems Vital Signs Vitals Vital Signs Date Time Temp Pulse Resp B/P Pulse Ox O2 Delivery O2 Flow Rate FiO2 05/27/17 08:00 Nasal Cannula 4.0 05/27/17 07:00 98.0 103 18 95/62 98 Intake and Output 05/26/17 05/26/17 05/27/17 15:00 23:00 07:00 Intake Total 1000 ml 360 ml Balance 1000 ml 360 ml Exam Constitutional: alert, frail, oriented Psych: anxiety, depression Head: normocephalic Eyes: nl conjunctiva ENMT: nl external ears & nose Neck: supple Respiratory: diminished breath sounds Cardiovascular: regular rate and rhythm Gastrointestinal: soft Musculoskeletal: muscle weakness Results Result Diagram: 05/25/17 1216 05/25/17 1216 Medications Medications Current Medications Acetaminophen (Tylenol Tab) 650 mg Q6H PRN PO PAIN LEVEL 1-3 OR FEVER Last administered on 05/18/17 04:56; Admin Dose 650 MG; Start 05/14/17 at 18:00 Docusate Sodium (Colace) 100 mg Q12H PRN PO CONSTIPATION; Start 05/14/17 at 18 :00 Nicotine Polacrilex (Nicorette) 2 mg Q2H PRN BUCCAL agitation; Start 05/14/17 at 18:00 Ondansetron HCl (Zofran Inj) 4 mg Q4 PRN IV NAUSEA AND/OR VOMITING Last administered on 05/27/17 00:30; Admin Dose 4 MG; Start 05/14/17 at 20:30 Enoxaparin Sodium (Lovenox) 40 mg DAILY SC Last administered on 05/27/17 09: 55; Admin Dose 40 MG; Start 05/16/17 at 09:00 Lorazepam (Ativan) 1 mg Q6H PRN PO ANXIETY Last administered on 05/24/17 10: 01; Admin Dose 1 MG; Start 05/16/17 at 15:30 Hydromorphone HCl (Dilaudid) 2 mg Q4H PRN PO PAIN LEVEL 1-5 Last administered on 05/26/17 13:41; Admin Dose 2 MG; Start 05/17/17 at 06:30 Oxycodone HCl (Oxycontin) 10 mg BID PO Last administered on 05/27/17 09:54; Admin Dose 10 MG; Start 05/17/17 at 09:00 Trazodone HCl (Desyrel) 25 mg HS PO Last administered on 05/26/17 20:16; Admin Dose 25 MG; Start 05/17/17 at 21:00 Senna/Docusate Sodium (Senokot-S) 1 tab AM PO Last administered on 05/27/17 09:54; Admin Dose 1 TAB; Start 05/17/17 at 09:00 Hydromorphone HCl (Dilaudid) 2 mg Q3 PRN IV PAIN Last administered on 10:02; Admin Dose 2 MG; Start 05/18/17 at 18:12 Dexamethasone (Decadron) 2 mg BID PO Last administered on 05/27/17 09:54; Admin Dose 2 MG; Start 05/20/17 at 15:37 CHARLOTTE DÍAZ M.D. May 27, 2017 11:48
--- NOTE | 2017-05-27 12:15 | PN ---
Date/Time of Note Date/Time of Note DATE: 05/27/17 TIME: 12:13 Assessment/Plan VTE Prophylaxis VTE Prophylaxis Intervention: LMWH Lines/Catheters IV Catheter Type (from Nrsg): Saline Lock Assessment/Plan Chief Complaint/Hosp Course Assessment/Plan: 41 yo F presented for SOB, found to have R breast Ca with malignant pleural effusion and bone mets. 1. breast ca: -US guided core breast biopsy 05.17: invasive ductal ca- now confirmed as ER+/MS+/Her2 + metastatic breast cancer. Lytic Lesions with compression fractures at C5, T10 and L2, -[facility] consult[facility] continue [facility] treatment for rad Onc recommendations -Per hematology oncology team, with port a cath placement and scheduled for chemotherapy to begin after radiation is given, likely on Sunday. -completed abx for CAP coverage -continue pain and anxiety control 2. Large Bilateral Pleural Effusions-s/p thoracentesis -f/u fluid cytology 3. DVT prophx-low molecular weight heparin Problems: Subjective 24 Hr Interval Summary Free Text/Dictation PAtient seen by hematology oncology team this morning patient seen by hematology oncology team this morning. Has gotten radiation therapy. Exam/Review of Systems Vital Signs Vitals Vital Signs Date Time Temp Pulse Resp B/P Pulse Ox O2 Delivery O2 Flow Rate FiO2 05/27/17 08:00 Nasal Cannula 4.0 05/27/17 07:00 98.0 103 18 95/62 98 Intake and Output 05/26/17 05/26/17 05/27/17 15:00 23:00 07:00 Intake Total 1000 ml 360 ml Balance 1000 ml 360 ml Exam thin, sitting in bed, in mild distress tachy heart rate no mrg abd soft no rashes Results Result Diagram: 05/25/17 1216 05/25/17 1216 Medications Medications Current Medications Acetaminophen (Tylenol Tab) 650 mg Q6H PRN PO PAIN LEVEL 1-3 OR FEVER Last administered on 05/18/17t 04:56; Admin Dose 650 MG; Start 05/14/17 at 18:00 Docusate Sodium (Colace) 100 mg Q12H PRN PO CONSTIPATION; Start 05/14/17 at 18 :00 Nicotine Polacrilex (Nicorette) 2 mg Q2H PRN BUCCAL agitation; Start 05/14/17 at 18:00 Ondansetron HCl (Zofran Inj) 4 mg Q4 PRN IV NAUSEA AND/OR VOMITING Last administered on 05/27/17 00:30; Admin Dose 4 MG; Start 05/14/17 at 20:30 Enoxaparin Sodium (Lovenox) 40 mg DAILY SC Last administered on 05/27/17 09: 55; Admin Dose 40 MG; Start 05/16/17 at 09:00 Lorazepam (Ativan) 1 mg Q6H PRN PO ANXIETY Last administered on 05/24/17 10: 01; Admin Dose 1 MG; Start 05/16/17 at 15:30 Hydromorphone HCl (Dilaudid) 2 mg Q4H PRN PO PAIN LEVEL 1-5 Last administered on 05/26/17 13:41; Admin Dose 2 MG; Start 05/17/17 at 06:30 Oxycodone HCl (Oxycontin) 10 mg BID PO Last administered on 05/27/17 09:54; Admin Dose 10 MG; Start 05/17/17 at 09:00 Trazodone HCl (Desyrel) 25 mg HS PO Last administered on 05/26/17 20:16; Admin Dose 25 MG; Start 05/17/17 at 21:00 Senna/Docusate Sodium (Senokot-S) 1 tab AM PO Last administered on 05/27/17 09:54; Admin Dose 1 TAB; Start 05/17/17 at 09:00 Hydromorphone HCl (Dilaudid) 2 mg Q3 PRN IV PAIN Last administered on 10:02; Admin Dose 2 MG; Start 05/18/17 at 18:12 Dexamethasone (Decadron) 2 mg BID PO Last administered on 05/27/17 09:54; Admin Dose 2 MG; Start 05/20/17 at 15:37 HAYLEY RANDLE May 27, 2017 12:15
[2017-05-27] MEDS: DOCUSATE SODIUM 100 MG CAP PO PRN ×2 (13:37→20:49)
[2017-05-27 14:00] VITALS: BP 112/76; RESP 18
[2017-05-27 19:19] VITALS: BP 116/71; RESP 20
[2017-05-27] MEDS: LORAZEPAM 1 MG TAB PO PRN (20:50)
[2017-05-27] MEDS: traZODone 50 MG TAB PO SCH (20:50)
[2017-05-28] VITALS (11 sets, daily range): BP systolic 99–140; BP diastolic 65–89; PULSE 110–122; RESP 18–25
[2017-05-28] MEDS: HYDROmorphONE 2 MG/ML SYG IV PRN ×5 (00:17→22:54)
[2017-05-28] MEDS: DEXAMETHASONE 2 MG TAB PO SCH ×2 (09:00→21:22)
[2017-05-28] MEDS: oxyCODONE (CR) 10 MG TAB [oxyCONTIN] PO SCH ×2 (09:00→21:22)
[2017-05-28] MEDS: SENNA/DOCUSATE NA (8.6MG/50MG) TAB PO SCH (09:00)
[2017-05-28] MEDS ORDERED: LIDOCAINE 1%/EPI 30 ML INJ ONE (10:09)
[2017-05-28] MEDS ORDERED: SOD CHLORIDE 0.9% 500 ML ONE (10:09)
[2017-05-28] MEDS ORDERED: HEPARIN 1000 UNITS/ML 10 ML INJ ONE (10:09)
[2017-05-28] MEDS ORDERED: CEFAZOLIN 1 GM/50 ML (PMX) 50 ML IVPB ONE (10:09)
[2017-05-28] MEDS ORDERED: MIDAZOLAM 1 MG/ML 2 ML INJ ONE (10:29)
[2017-05-28] MEDS ORDERED: ONDANSETRON 4 MG INJ ONE (10:29)
[2017-05-28] MEDS ORDERED: FENTAnyl 50 MCG/ML VIAL ONE (10:29)
[2017-05-28] MEDS ORDERED: PROCHLORPERAZINE 10 MG INJ IV PRN (10:30)
[2017-05-28] MEDS ORDERED: ONDANSETRON 4 MG INJ IV PRN (10:30)
[2017-05-28] MEDS ORDERED: EPHEDrine SULFATE 50 MG/5 ML SYG IV PRN (10:30)
[2017-05-28] MEDS ORDERED: OXYCODONE/ACETAMINOPHEN (5/325) TAB PO PRN (10:30)
[2017-05-28] MEDS ORDERED: hydrALAzine 20 MG INJ IV PRN (10:30)
[2017-05-28] MEDS ORDERED: DIPHENHYDRAMINE 50 MG INJ IV PRN (10:30)
[2017-05-28] MEDS ORDERED: HYDROmorphONE (0.2 MG/ML) 10ML SYG IV PRN (10:30)
[2017-05-28] MEDS ORDERED: FENTAnyl 50 MCG/ML VIAL IV PRN (10:30)
[2017-05-28] MEDS ORDERED: LABETALOL HCL 20MG INJ IV PRN (10:30)
[2017-05-28] MEDS ORDERED: MEPERIDINE 25 MG INJ IV PRN (10:30)
[2017-05-28] MEDS ORDERED: PHENYLephrine (100 MCG/ML) 5ML SYG ONE (10:31)
[2017-05-28] MEDS ORDERED: EPHEDrine SULFATE 50 MG/5 ML SYG ONE (10:31)
[2017-05-28] MEDS ORDERED: PROPOFOL 20 ML ONE (10:31)
[2017-05-28] MEDS ORDERED: POLYMYXIN/BACITRACIN 1L IRRIG IRR SCH (11:30)
--- NOTE | 2017-05-28 11:53 | RADRPT ---
PROCEDURE: FLUOROSCOPIC AND ULTRASONOGRAPHIC-GUIDED PLACEMENT OF LEFT CHEST PORT. CLINICAL INDICATION: History of stage IV right breast cancer. Venous access for chemotherapy. TECHNIQUE: INTRAPROCEDURE MEDICATIONS: PB antibiotic solution 40 cc applied topically. 1 gram Ancef intravenous ly, intra-op. IV Versed and Fentanyl per protocol. TECHNIQUE: Informed consent was obtained. The procedure, risks, benefits, complications and alternat markus were explained to the patient. Risks including bleeding, infection, and pneumothorax were expl ained. The patient understood and was willing to proceed. A procedural pause was performed. The patient's name, date of , and procedure to be performed w ere verified. The central line was inserted with all elements of maximal sterile barrier technique. All of the fol lowing were used: head covering, facial mask, sterile gown, sterile gloves, a large sterile sheet, h and hygiene, and 2% chlorhexidine for cutaneous antisepsis. The left neck and anterior/superior chest wall were prepped and draped in usual sterile fashion. Limited sonography of the left neck was then performed. Noted is a patent left internal jugular vein . Following the local injection of 1% lidocaine, the left internal jugular vein was punctured under so nographic guidance with a 20-gauge needle through which a 0.018 inch floppy tip guidewire was advanc ed into the superior vena cava with fluoroscopic guidance. The tract was dilated to 5 [place] and t he wire was then replaced with a 0.035 in Glidewire. Serial dilatation was then performed and a 7 F rench peel away sheath was introduced. A site just inferior to the clavicle in the superior anterior left chest wall was localized. One per cent lidocaine was used as local anesthesia. A transverse 3 cm incision was made utilizing a 15 blad e scalpel. Utilizing blunt dissection a subcutaneous pocket was created inferior to the incision. Th e cavity was flushed with approximately 40 cc of PB antibiotic solution. The catheter was tunneled underneath the skin from the newly created pocket to the puncture site in the neck. The central line catheter was pulled through the tract. The catheter was then advanced thr ough the sheath until the tip was positioned in the right atrium. The peel-away sheath was removed. The catheter was flushed and clamped. The catheter was then connected to the 6.6 [place] [employer] power port. The port was then placed into the pocket. Prior to closing the instrument and sponge count was verified and was correct. The subcutaneous tissue was closed with 3-0 Vicryl interrupted suture. The skin at the site of the pock et and in the neck was closed with 4-0 Vicryl suture in a running subcuticular technique. The port w as flushed with 1500 units of heparin in 1.5 cc utilizing a Stone needle. The needle was removed. A dressing was applied. The patient tolerated procedure well. COMPARISON: None. FINDINGS: Ultrasound images were recorded and stored in the patient's medical record. Final radiographic images demonstrate the tip of the catheter in the upper right atrium. A total of 0.1 minutes of fluoroscopy time was used. The ultrasound images demonstrate the needle entering th e jugular vein. 6 images of the chest were obtained with image intensifier. IMPRESSION: 1. Successful ultrasonographic and fluoroscopic guided placement of left chest port. RPTAT: QQ .Chuck Robins MD, MD Date Time Electronically viewed and signed by .Chuck Robins MD, on 05/28/2017 11:53 .R/
--- NOTE | 2017-05-28 11:53 | RADRPT ---
PROCEDURE: Ultrasound guidance for placement of needle in left internal jugular vein. CLINICAL INDICATION: Venous access. TECHNIQUE: Prior to the procedure, informed consent was obtained. Risks including bleeding, infection, and pneu mothorax were explained to the patient. The patient understood and was willing to proceed. A procedu ral pause was performed. The patient's name, date of , and procedure to be performed were verif ied. The central line was inserted with all elements of maximal sterile barrier technique. All of th e following were used: head covering, facial mask, sterile gown, sterile gloves, a large sterile she et, hand hygiene, and 2% chlorhexidine for cutaneous antisepsis. The left neck and anterior/superi or chest wall was prepped and draped in usual sterile fashion. Limited sonography of the left neck was then performed. Noted is a patent left internal jugular vein . Ultrasound images were recorded and stored in the patient's medical record. Following the local injection of Xylocaine, the left internal jugular vein was punctured under sonog raphic guidance with a 20-gauge needle through which a 0.018 inch floppy tip guidewire was advanced into the superior vena cava. The patient tolerated the procedure well. The remainder of the proced ure was performed and dictated under separate cover. COMPARISON: None. FINDINGS: The ultrasound images demonstrate a patent left internal jugular vein. The subsequent images demons trate the needle entering the left internal jugular vein. IMPRESSION: 1. Ultrasound guidance for a needle placement in left internal jugular vein. RPTAT: QQ .Chuck Robins MD, Date Time Electronically viewed and signed by .Chuck Robins MD, on 05/28/2017 11:53 .R/
[2017-05-28] MEDS ORDERED: HYDROCODONE/APAP (5/325) TAB PO PRN (12:00)
--- NOTE | 2017-05-28 13:53 | PN ---
Date/Time of Note Date/Time of Note DATE: 05/28/17 TIME: 13:50 Assessment/Plan VTE Prophylaxis VTE Prophylaxis Intervention: SCD's Lines/Catheters IV Catheter Type (from Nrsg): Peripheral IV Assessment/Plan Assessment/Plan 41 yo F presented for SOB, found to have stage 4 breast Ca with malignant pleural effusion and bone mets. #breast ca: invasive ductal ER+/[place]+/Her2 + c/b spine mets and bl pleural effusions -port today, outpatient onc f/u for chemo -palliative RT -pain control #hypoxic respiratory insufficiency bl metastatic pleural effusions sp drainage -pt to be discharged with home O2, CM already aware # DVT prophx-low molecular weight heparin patient is medically stable for discharge. CM consulted for help with transportation back and forth to radiation Exam/Review of Systems Vital Signs Vitals Vital Signs Date Time Temp Pulse Resp B/P Pulse Ox O2 Delivery O2 Flow Rate FiO2 05/28/17 13:01 98.1 131 19 115/86 95 05/28/17 12:32 Nasal Cannula 2.0 Intake and Output 05/27/17 05/27/17 05/28/17 15:00 23:00 07:00 Intake Total 1000 ml 520 ml Output Total 600 ml 600 ml Balance 400 ml -80 ml Results Result Diagram: 05/25/17 1216 05/25/17 1216 Medications Medications Current Medications Acetaminophen (Tylenol Tab) 650 mg Q6H PRN PO PAIN LEVEL 1-3 OR FEVER Last administered on 05/18/17 04:56; Admin Dose 650 MG; Start 05/14/17 at 18:00 Docusate Sodium (Colace) 100 mg Q12H PRN PO CONSTIPATION Last administered on 05/27/17 20:49; Admin Dose 100 MG; Start 05/14/17 at 18:00 Nicotine Polacrilex (Nicorette) 2 mg Q2H PRN BUCCAL agitation; Start 05/14/17 at 18:00 Ondansetron HCl (Zofran Inj) 4 mg Q4 PRN IV NAUSEA AND/OR VOMITING Last administered on 05/27/17 00:30; Admin Dose 4 MG; Start 05/14/17 at 20:30 Enoxaparin Sodium (Lovenox) 40 mg DAILY SC Last administered on 05/27/17 09: 55; Admin Dose 40 MG; Start 05/16/17 at 09:00; Status Future Hold Lorazepam (Ativan) 1 mg Q6H PRN PO ANXIETY Last administered on 05/27/17 20: 50; Admin Dose 1 MG; Start 05/16/17 at 15:30 Hydromorphone HCl (Dilaudid) 2 mg Q4H PRN PO PAIN LEVEL 1-5 Last administered on 05/26/17 13:41; Admin Dose 2 MG; Start 05/17/17 at 06:30 Oxycodone HCl (Oxycontin) 10 mg BID PO Last administered on 05/27/17 20:49; Admin Dose 10 MG; Start 05/17/17 at 09:00 Trazodone HCl (Desyrel) 25 mg HS PO Last administered on 05/27/17 20:50; Admin Dose 25 MG; Start 05/17/17 at 21:00 Senna/Docusate Sodium (Senokot-S) 1 tab AM PO Last administered on 05/27/17 09:54; Admin Dose 1 TAB; Start 05/17/17 at 09:00 Hydromorphone HCl (Dilaudid) 2 mg Q3 PRN IV PAIN Last administered on 04:11; Admin Dose 2 MG; Start 05/18/17 at 18:12 Dexamethasone (Decadron) 2 mg BID PO Last administered on 05/27/17 20:50; Admin Dose 2 MG; Start 05/20/17 at 15:37 Acetaminophen/ Hydrocodone Bitart ([place] (5/325)) 1 tab Q3H PRN PO PAIN; Start 05/28/17 at 12:00; Stop 05/29/17 at 11:59 KRIS CLAYTON MD May 28, 2017 13:53
[2017-05-28] MEDS: traZODone 50 MG TAB PO SCH (21:22)
[2017-05-29 02:05] VITALS: BP 106/67; RESP 21
[2017-05-29] MEDS: HYDROmorphONE 2 MG/ML SYG IV PRN ×5 (02:30→21:55)
[2017-05-29] MEDS: DOCUSATE SODIUM 100 MG CAP PO PRN (06:05)
[2017-05-29 07:38] VITALS: BP 95/67; RESP 18
[2017-05-29] MEDS: SENNA/DOCUSATE NA (8.6MG/50MG) TAB PO SCH (08:28)
[2017-05-29] MEDS: DEXAMETHASONE 2 MG TAB PO SCH ×2 (08:29→20:16)
[2017-05-29] MEDS: oxyCODONE (CR) 10 MG TAB [oxyCONTIN] PO SCH ×2 (08:29→20:17)
[2017-05-29] MEDS: LORAZEPAM 1 MG TAB PO PRN (12:59)
[2017-05-29] MEDS: POLYETHYLENE GLYCOL 17 GM PACKET PO SCH (14:17)
--- NOTE | 2017-05-29 14:57 | RADRPT ---
Echocardiogram Report Patient Name: ERLIN YANCEY Gender: Female Date: 1975 Study Date: 25-May-2017 Copper Plater: BOONE Location: 401 Ref. Physician: CHARLOTTE DÍAZ Quality: Good Procedures: Transthoracic echocardiogram with complete 2D, M-Mode, and doppler examination. Indications: Chemotherapy/Herceptin. 2D/M Mode Doppler Measurement Value Normal Ranges Measurement Value Normal Ranges AoR Diam MM 2.5 cm JAMES Vmax 2.5 cm2 ACS MM 1.9 cm JAMES VTI 2.5 cm2 LA/Ao MM 1.1 AV Peak [place] 1.1 m/sec LA Dimen MM 2.8 cm AV Peak PG 5.2 mmHg LVIDd 2D 3.7 3.5 - 5.6 cm LVOT Peak [place] 1.0 m/sec LVIDs 2D 2.5 2.1 - 4.1 cm LVOT Peak PG 3.9 mmHg LVPWd 2D 1.0 0.6 - 1.1 cm MV E Peak [place] 1.0 m/sec IVSd 2D 1.0 0.6 - 1.1 cm MV A Peak [place] 0.8 m/sec EDV 2D 58.0 cm3 MV E/A 1.3 ESV 2D 16.2 cm3 MV Decel Time 139 msec EF 2D 60.0 50.0 - 65.0 % MV Decel [place] 7 LVOT Diam 1.9 cm MV E/A 1.3 TR Peak [place] 3.1 m/sec TR Peak PG 37.4 mmHg RVSP 40.0 mmHg RA Pressure 3.0 Findings Left Ventricle: Normal left ventricular systolic function. Normal left ventricular cavity size. Normal left ventricular wall thickness. Ejection fraction is visually estimated at 6065 %. Tissue Doppler/Mitral Doppler indices are within normal limits. Right Ventricle: Normal right ventricular size. Normal right ventricular systolic function. Left Atrium: The left atrium is normal in size. Right Atrium: The right atrium is normal in size. Mitral Valve: Normal appearance and function of the mitral valve with trace physiologic regurgitation. Aortic Valve: No significant aortic stenosis or insufficiency. Normal trileaflet aortic valve structure. Trileaflet aortic valve. Tricuspid Valve: Normal appearance of the tricuspid valve. Right ventricular systolic pressure is consistent with moderate pulmonary hypertension. Estimated peak PA systolic pressure 40 mmHg. There is mild tricuspid regurgitation. Pulmonic Valve: Normal pulmonic valve appearance. Pericardium: Trivial pericardial effusion. No echocardiographic evidence to suggest pericardial tamponade. Moderate to large bilateral pleural effusion seen. Aorta: Normal aortic root. IVC: Normal size and normal respiratory collapse consistent with normal right atrial pressure. Conclusions Normal left ventricular systolic function. Normal left ventricular cavity size. Normal left ventricular wall thickness. Ejection fraction is visually estimated at 60-65 %. Tissue Doppler/Mitral Doppler indices are within normal limits. Normal right ventricular size. Normal right ventricular systolic function. Normal appearance of the tricuspid valve. Right ventricular systolic pressure is consistent with moderate pulmonary hypertension. Estimated peak PA systolic pressure 40 mmHg. There is mild tricuspid regurgitation. Trivial pericardial effusion. No echocardiographic evidence to suggest pericardial tamponade. Moderate to large bilateral pleural effusion seen. Normal size and normal respiratory collapse consistent with normal right atrial pressure. No Vegetation, masses, or thrombi seen. Electronically Signed By: Alverto Cosme 29-May-2017 14:57:04 -0700 Patient Name: ERLIN YANCEY Study Date: 25-May-2017 [id number]
--- NOTE | 2017-05-29 14:57 | RADRPT ---
Echocardiogram Report Patient Name: ERLIN YANCEY Gender: Female Date: 1975 Study Date: 25-May-2017 Industrial Management Teacher: BOONE Location: 401 Ref. Physician: CHARLOTTE DÍAZ Quality: Good Procedures: Transthoracic echocardiogram with complete 2D, M-Mode, and doppler examination. Indications: Chemotherapy/Herceptin. 2D/M Mode Doppler Measurement Value Normal Ranges Measurement Value Normal Ranges AoR Diam MM 2.5 cm JAMES Vmax 2.5 cm2 ACS MM 1.9 cm JAMES VTI 2.5 cm2 LA/Ao MM 1.1 AV Peak [place] 1.1 m/sec LA Dimen MM 2.8 cm AV Peak PG 5.2 mmHg LVIDd 2D 3.7 3.5 - 5.6 cm LVOT Peak [place] 1.0 m/sec LVIDs 2D 2.5 2.1 - 4.1 cm LVOT Peak PG 3.9 mmHg LVPWd 2D 1.0 0.6 - 1.1 cm MV E Peak [place] 1.0 m/sec IVSd 2D 1.0 0.6 - 1.1 cm MV A Peak Hcencho 0.8 m/sec EDV 2D 58.0 cm3 MV E/A 1.3 ESV 2D 16.2 cm3 MV Decel Time 139 msec EF 2D 60.0 50.0 - 65.0 % MV Decel [place] 7 LVOT Diam 1.9 cm MV E/A 1.3 TR Peak [place] 3.1 m/sec TR Peak PG 37.4 mmHg RVSP 40.0 mmHg RA Pressure 3.0 Findings Left Ventricle: Normal left ventricular systolic function. Normal left ventricular cavity size. Normal left ventricular wall thickness. Ejection fraction is visually estimated at 6065 %. Tissue Doppler/Mitral Doppler indices are within normal limits. Right Ventricle: Normal right ventricular size. Normal right ventricular systolic function. Left Atrium: The left atrium is normal in size. Right Atrium: The right atrium is normal in size. Mitral Valve: Normal appearance and function of the mitral valve with trace physiologic regurgitation. Aortic Valve: No significant aortic stenosis or insufficiency. Normal trileaflet aortic valve structure. Trileaflet aortic valve. Tricuspid Valve: Normal appearance of the tricuspid valve. Right ventricular systolic pressure is consistent with moderate pulmonary hypertension. Estimated peak PA systolic pressure 40 mmHg. There is mild tricuspid regurgitation. Pulmonic Valve: Normal pulmonic valve appearance. Pericardium: Trivial pericardial effusion. No echocardiographic evidence to suggest pericardial tamponade. Moderate to large bilateral pleural effusion seen. Aorta: Normal aortic root. IVC: Normal size and normal respiratory collapse consistent with normal right atrial pressure. Conclusions Normal left ventricular systolic function. Normal left ventricular cavity size. Normal left ventricular wall thickness. Ejection fraction is visually estimated at 60-65 %. Tissue Doppler/Mitral Doppler indices are within normal limits. Normal right ventricular size. Normal right ventricular systolic function. Normal appearance of the tricuspid valve. Right ventricular systolic pressure is consistent with moderate pulmonary hypertension. Estimated peak PA systolic pressure 40 mmHg. There is mild tricuspid regurgitation. Trivial pericardial effusion. No echocardiographic evidence to suggest pericardial tamponade. Moderate to large bilateral pleural effusion seen. Normal size and normal respiratory collapse consistent with normal right atrial pressure. No Vegetation, masses, or thrombi seen. Electronically Signed By: Alverto Cosme 29-May-2017 14:57:04 -0700 Patient Name: ERLIN YANCEY Study Date: 25-May-2017 [id number]
--- NOTE | 2017-05-29 15:34 | PN ---
Date/Time of Note Date/Time of Note DATE: 05/29/17 TIME: 15:33 Assessment/Plan VTE Prophylaxis VTE Prophylaxis Intervention: SCD's Lines/Catheters IV Catheter Type (from Nrsg): port-a-cath Urinary Cath still in place: No Assessment/Plan Assessment/Plan 41 yo F presented for SOB, found to have stage 4 breast Ca with malignant pleural effusion and bone mets. #breast ca: invasive ductal ER+/[place]+/Her2 + c/b spine mets and bl pleural effusions -port placed . outpatient onc f/u for chemo -palliative RT -pain control #hypoxic respiratory insufficiency bl metastatic pleural effusions sp drainage -pt to be discharged with home O2, CM already aware # DVT prophx-low molecular weight heparin patient is medically stable for discharge. CM consulted for help with transportation back and forth to radiation PT eval for home PT Subjective 24 Hr Interval Summary Free Text/Dictation Pt still scared Exam/Review of Systems Vital Signs Vitals Vital Signs Date Time Temp Pulse Resp B/P Pulse Ox O2 Delivery O2 Flow Rate FiO2 05/29/17 13:01 3.0 05/29/17 08:00 Nasal Cannula 05/29/17 07:38 98.2 95 18 95/67 100 Intake and Output 05/28/17 05/28/17 05/29/17 15:00 23:00 07:00 Intake Total 60 ml 680 ml 650 ml Balance 60 ml 680 ml 650 ml Exam no mrg port site c/d/i no rashes abd soft no edema Results Result Diagram: 05/25/17 1216 05/25/17 1216 Medications Medications Current Medications Acetaminophen (Tylenol Tab) 650 mg Q6H PRN PO PAIN LEVEL 1-3 OR FEVER Last administered on 05/18/17 04:56; Admin Dose 650 MG; Start 05/14/17 at 18:00 Docusate Sodium (Colace) 100 mg Q12H PRN PO CONSTIPATION Last administered on 05/29/17 06:05; Admin Dose 100 MG; Start 05/14/17 at 18:00 Nicotine Polacrilex (Nicorette) 2 mg Q2H PRN BUCCAL agitation; Start 05/14/17 at 18:00 Ondansetron HCl (Zofran Inj) 4 mg Q4 PRN IV NAUSEA AND/OR VOMITING Last administered on 05/27/17 00:30; Admin Dose 4 MG; Start 05/14/17 at 20:30 Enoxaparin Sodium (Lovenox) 40 mg DAILY SC Last administered on 05/27/17 09: 55; Admin Dose 40 MG; Start 05/16/17 at 09:00; Status Future Hold Lorazepam (Ativan) 1 mg Q6H PRN PO ANXIETY Last administered on 05/29/17 12: 59; Admin Dose 1 MG; Start 05/16/17 at 15:30 Hydromorphone HCl (Dilaudid) 2 mg Q4H PRN PO PAIN LEVEL 1-5 Last administered on 05/26/17 13:41; Admin Dose 2 MG; Start 05/17/17 at 06:30 Oxycodone HCl (Oxycontin) 10 mg BID PO Last administered on 05/29/17 08:29; Admin Dose 10 MG; Start 05/17/17 at 09:00 Trazodone HCl (Desyrel) 25 mg HS PO Last administered on 05/28/17 21:22; Admin Dose 25 MG; Start 05/17/17 at 21:00 Senna/Docusate Sodium (Senokot-S) 1 tab AM PO Last administered on 05/29/17 08:28; Admin Dose 1 TAB; Start 05/17/17 at 09:00 Hydromorphone HCl (Dilaudid) 2 mg Q3 PRN IV PAIN Last administered on 13:57; Admin Dose 2 MG; Start 05/18/17 at 18:12 Dexamethasone (Decadron) 2 mg BID PO Last administered on 05/29/17 08:29; Admin Dose 2 MG; Start 05/20/17 at 15:37 Polyethylene Glycol (Miralax) 17 gm DAILY PO Last administered on 05/29/17 14 :17; Admin Dose 17 GM; Start 05/29/17 at 14:30 KRIS CLAYTON MD May 29, 2017 15:34
[2017-05-29] MEDS: ONDANSETRON 4 MG INJ IV PRN (17:55)
[2017-05-29 20:00] VITALS: BP 99/54; RESP 19
[2017-05-29] MEDS: traZODone 50 MG TAB PO SCH (20:17)
[2017-05-30] MEDS: HYDROmorphONE 2 MG TAB PO PRN ×2 (01:02→22:06)
[2017-05-30 02:00] VITALS: BP 117/70; RESP 20
[2017-05-30] MEDS: HYDROmorphONE 2 MG/ML SYG IV PRN ×6 (04:34→23:30)
[2017-05-30 07:22] VITALS: BP 101/68; RESP 18
[2017-05-30] MEDS: SENNA/DOCUSATE NA (8.6MG/50MG) TAB PO SCH (09:00)
[2017-05-30] MEDS: DOCUSATE SODIUM 100 MG CAP PO PRN (09:00)
[2017-05-30] MEDS: DEXAMETHASONE 2 MG TAB PO SCH ×2 (09:00→20:06)
[2017-05-30] MEDS: oxyCODONE (CR) 10 MG TAB [oxyCONTIN] PO SCH (09:00)
[2017-05-30] MEDS: POLYETHYLENE GLYCOL 17 GM PACKET PO SCH (09:00)
[2017-05-30 14:45] VITALS: BP 105/77; RESP 18
--- NOTE | 2017-05-30 15:11 | PN ---
Date/Time of Note Date/Time of Note DATE: 05/30/17 TIME: 15:09 Assessment/Plan VTE Prophylaxis VTE Prophylaxis Intervention: SCD's Lines/Catheters IV Catheter Type (from Nrsg): Saline Lock Urinary Cath still in place: No Assessment/Plan Assessment/Plan 41 yo F presented for SOB, found to have stage 4 breast Ca with malignant pleural effusion and bone mets. #breast ca: invasive ductal ER+/GA+/Her2 + c/b spine mets and bl pleural effusions -port placed 10.30 outpatient onc f/u for chemo -palliative RT -pain control-->palliative to see again today -PT advising home PT-->CM cs placed #hypoxic respiratory insufficiency bl metastatic pleural effusions sp drainage -pt to be discharged with home O2, CM already aware # DVT prophx-low molecular weight heparin patient is medically stable for discharge. CM consulted for help with transportation back and forth to radiation Subjective 24 Hr Interval Summary Free Text/Dictation overwhelmed. per RN pain control inadequate Exam/Review of Systems Vital Signs Vitals Vital Signs Date Time Temp Pulse Resp B/P Pulse Ox O2 Delivery O2 Flow Rate FiO2 05/30/17 14:45 98.0 109 18 105/77 98 05/30/17 08:00 Nasal Cannula 2.0 Intake and Output 05/29/17 05/29/17 05/30/17 15:00 23:00 07:00 Intake Total 1200 ml 750 ml Balance 1200 ml 750 ml Exam nad no mrg lungs clear abd soft no rashes Medications Medications Current Medications Acetaminophen (Tylenol Tab) 650 mg Q6H PRN PO PAIN LEVEL 1-3 OR FEVER Last administered on 05/18/17 04:56; Admin Dose 650 MG; Start 05/14/17 at 18:00 Docusate Sodium (Colace) 100 mg Q12H PRN PO CONSTIPATION Last administered on 05/30/17 09:00; Admin Dose 100 MG; Start 05/14/17 at 18:00 Nicotine Polacrilex (Nicorette) 2 mg Q2H PRN BUCCAL agitation; Start 05/14/17 at 18:00 Ondansetron HCl (Zofran Inj) 4 mg Q4 PRN IV NAUSEA AND/OR VOMITING Last administered on 05/29/17 17:55; Admin Dose 4 MG; Start 05/14/17 at 20:30 Enoxaparin Sodium (Lovenox) 40 mg DAILY SC Last administered on 05/27/17 09: 55; Admin Dose 40 MG; Start 05/16/17 at 09:00; Status Future Hold Lorazepam (Ativan) 1 mg Q6H PRN PO ANXIETY Last administered on 05/29/17 12: 59; Admin Dose 1 MG; Start 05/16/17 at 15:30 Hydromorphone HCl (Dilaudid) 2 mg Q4H PRN PO PAIN LEVEL 1-5 Last administered on 05/30/17 01:02; Admin Dose 2 MG; Start 05/17/17 at 06:30 Oxycodone HCl (Oxycontin) 10 mg BID PO Last administered on 05/30/17 09:00; Admin Dose 10 MG; Start 05/17/17 at 09:00 Trazodone HCl (Desyrel) 25 mg HS PO Last administered on 05/29/17 20:17; Admin Dose 25 MG; Start 05/17/17 at 21:00 Senna/Docusate Sodium (Senokot-S) 1 tab AM PO Last administered on 05/30/17 09 :00; Admin Dose 1 TAB; Start 05/17/17 at 09:00 Hydromorphone HCl (Dilaudid) 2 mg Q3 PRN IV PAIN Last administered on 13:32; Admin Dose 2 MG; Start 05/18/17 at 18:12 Dexamethasone (Decadron) 2 mg BID PO Last administered on 05/30/17 09:00; Admin Dose 2 MG; Start 05/20/17 at 15:37 Polyethylene Glycol (Miralax) 17 gm DAILY PO Last administered on 05/30/17 09: 00; Admin Dose 17 GM; Start 05/29/17 at 14:30 KRIS CLAYTON MD May 30, 2017 15:10
[2017-05-30] MEDS: LORAZEPAM 1 MG TAB PO PRN (15:30)
--- NOTE | 2017-05-30 16:26 | CONS ---
Date/Time of Note Date/Time of Note DATE: 05/30/17 TIME: 16:24 Assessment/Plan Assessment/Plan Additional Assessment/Plan Have discussed pain management treatment options with decided to increase her dose of OxyContin and adjust the dose of Dilaudid. I suggest adding on trazodone nightly Support We will give her some suggestion for support groups prior to discharge Discussed diet, exercise, close follow-up with Dr. Ley Consultation Date/Type/Reason Admit Date/Time May 14, 2017 at 13:40 Initial Consult Date 05/17/17 Type of Consultation: Pain management Referring Provider: KRIS CLAYTON MD Exam/Review of Systems Vital Signs Vitals Vital Signs Date Time Temp Pulse Resp B/P Pulse Ox O2 Delivery O2 Flow Rate FiO2 05/30/17 14:45 98.0 109 18 105/77 98 05/30/17 08:00 Nasal Cannula 2.0 Intake and Output 05/29/17 05/29/17 05/30/17 15:00 23:00 07:00 Intake Total 1200 ml 750 ml Balance 1200 ml 750 ml Exam Constitutional: alert, oriented, well developed Neurological: [place]INDER II-XII intact, nl mental status, nl speech, nl strength Medications Medications Current Medications Acetaminophen (Tylenol Tab) 650 mg Q6H PRN PO PAIN LEVEL 1-3 OR FEVER Last administered on 05/18/17 04:56; Admin Dose 650 MG; Start 05/14/17 at 18:00 Docusate Sodium (Colace) 100 mg Q12H PRN PO CONSTIPATION Last administered on 05/30/17 09:00; Admin Dose 100 MG; Start 05/14/17 at 18:00 Nicotine Polacrilex (Nicorette) 2 mg Q2H PRN BUCCAL agitation; Start 05/14/17 at 18:00 Ondansetron HCl (Zofran Inj) 4 mg Q4 PRN IV NAUSEA AND/OR VOMITING Last administered on 05/29/17 17:55; Admin Dose 4 MG; Start 05/14/17 at 20:30 Enoxaparin Sodium (Lovenox) 40 mg DAILY SC Last administered on 05/27/17 09: 55; Admin Dose 40 MG; Start 05/16/17 at 09:00; Status Future Hold Lorazepam (Ativan) 1 mg Q6H PRN PO ANXIETY Last administered on 05/30/17 15:30 ; Admin Dose 1 MG; Start 05/16/17 at 15:30 Hydromorphone HCl (Dilaudid) 2 mg Q4H PRN PO PAIN LEVEL 1-5 Last administered on 05/30/17 01:02; Admin Dose 2 MG; Start 05/17/17 at 06:30 Oxycodone HCl (Oxycontin) 10 mg BID PO Last administered on 05/30/17 09:00; Admin Dose 10 MG; Start 05/17/17 at 09:00 Trazodone HCl (Desyrel) 25 mg HS PO Last administered on 05/29/17 20:17; Admin Dose 25 MG; Start 05/17/17 at 21:00 Senna/Docusate Sodium (Senokot-S) 1 tab AM PO Last administered on 05/30/17 09 :00; Admin Dose 1 TAB; Start 05/17/17 at 09:00 Hydromorphone HCl (Dilaudid) 2 mg Q3 PRN IV PAIN Last administered on 13:32; Admin Dose 2 MG; Start 05/18/17 at 18:12 Dexamethasone (Decadron) 2 mg BID PO Last administered on 05/30/17 09:00; Admin Dose 2 MG; Start 05/20/17 at 15:37 Polyethylene Glycol (Miralax) 17 gm DAILY PO Last administered on 05/30/17 09: 00; Admin Dose 17 GM; Start 05/29/17 at 14:30 BRIANDA HERNANDEZ May 30, 2017 16:26
[2017-05-30] MEDS: ONDANSETRON 4 MG INJ IV PRN (18:47)
[2017-05-30 19:53] VITALS: BP 120/76; RESP 20
[2017-05-30] MEDS: traZODone 50 MG TAB PO SCH (20:06)
[2017-05-30] MEDS: oxyCODONE (CR) 15 MG TAB [oxyCONTIN] PO SCH (20:52)
[2017-05-30] MEDS ORDERED: oxyCODONE (CR) 10 MG TAB [oxyCONTIN] PO SCH (21:00)
[2017-05-31] MEDS: HYDROmorphONE 2 MG/ML SYG IV PRN ×7 (02:34→22:14)
[2017-05-31 02:58] VITALS: BP 106/74; RESP 18
[2017-05-31] MEDS: HYDROmorphONE 2 MG TAB PO PRN (03:59)
[2017-05-31 07:35] VITALS: BP 103/68; RESP 18
[2017-05-31] MEDS: DEXAMETHASONE 2 MG TAB PO SCH ×2 (08:54→20:13)
[2017-05-31] MEDS: SENNA/DOCUSATE NA (8.6MG/50MG) TAB PO SCH (08:54)
[2017-05-31] MEDS: POLYETHYLENE GLYCOL 17 GM PACKET PO SCH (08:55)
[2017-05-31] MEDS: oxyCODONE (CR) 15 MG TAB [oxyCONTIN] PO SCH (08:55)
--- NOTE | 2017-05-31 11:36 | PN ---
Date/Time of Note Date/Time of Note DATE: 05/31/17 TIME: 11:35 Assessment/Plan VTE Prophylaxis VTE Prophylaxis Intervention: SCD's Lines/Catheters IV Catheter Type (from Nrsg): Peripheral IV Urinary Cath still in place: No Assessment/Plan Assessment/Plan 41 yo F presented for SOB, found to have stage 4 breast Ca with malignant pleural effusion and bone mets. #breast ca: invasive ductal ER+/MO+/Her2 + c/b spine mets and bl pleural effusions -port placed 10.30 outpatient onc f/u for chemo -palliative RT -pain control-->inc oxycontin -PT advising home PT-->CM cs placed #hypoxic respiratory insufficiency 2/2 bl metastatic pleural effusions sp drainage # DVT prophx-low molecular weight heparin CM consulted for help with transportation back and forth to radiation, home O2 and HHPT Subjective 24 Hr Interval Summary Free Text/Dictation pain control still suboptimal Exam/Review of Systems Vital Signs Vitals Vital Signs Date Time Temp Pulse Resp B/P Pulse Ox O2 Delivery O2 Flow Rate FiO2 05/31/17 08:00 Nasal Cannula 3.5 05/31/17 07:35 98.2 91 18 103/68 97 Intake and Output 05/30/17 05/30/17 05/31/17 15:00 23:00 07:00 Intake Total 1500 ml 740 ml Balance 1500 ml 740 ml Exam nad no mrg lungs clear abd soft no rashes Medications Medications Current Medications Acetaminophen (Tylenol Tab) 650 mg Q6H PRN PO PAIN LEVEL 1-3 OR FEVER Last administered on 05/18/17 04:56; Admin Dose 650 MG; Start 05/14/17 at 18:00 Docusate Sodium (Colace) 100 mg Q12H PRN PO CONSTIPATION Last administered on 05/30/17 09:00; Admin Dose 100 MG; Start 05/14/17 at 18:00 Nicotine Polacrilex (Nicorette) 2 mg Q2H PRN BUCCAL agitation; Start 05/14/17 at 18:00 Ondansetron HCl (Zofran Inj) 4 mg Q4 PRN IV NAUSEA AND/OR VOMITING Last administered on 05/30/17 18:47; Admin Dose 4 MG; Start 05/14/17 at 20:30 Enoxaparin Sodium (Lovenox) 40 mg DAILY SC Last administered on 05/27/17 09: 55; Admin Dose 40 MG; Start 05/16/17 at 09:00; Status Future Hold Lorazepam (Ativan) 1 mg Q6H PRN PO ANXIETY Last administered on 05/30/17 15:30 ; Admin Dose 1 MG; Start 05/16/17 at 15:30 Trazodone HCl (Desyrel) 25 mg HS PO Last administered on 05/30/17 20:06; Admin Dose 25 MG; Start 05/17/17 at 21:00 Senna/Docusate Sodium (Senokot-S) 1 tab AM PO Last administered on 05/31/17 08 :54; Admin Dose 1 TAB; Start 05/17/17 at 09:00 Hydromorphone HCl (Dilaudid) 2 mg Q3 PRN IV PAIN Last administered on 10:30; Admin Dose 2 MG; Start 05/18/17 at 18:12 Dexamethasone (Decadron) 2 mg BID PO Last administered on 05/31/17 08:54; Admin Dose 2 MG; Start 05/20/17 at 15:37 Polyethylene Glycol (Miralax) 17 gm DAILY PO Last administered on 05/31/17 08: 55; Admin Dose 17 GM; Start 05/29/17 at 14:30 Hydromorphone HCl (Dilaudid) 4 mg Q4H PRN PO PAIN LEVEL 1-5 Last administered on 05/31/17 03:59; Admin Dose 4 MG; Start 05/30/17 at 18:30 Oxycodone HCl (Oxycontin) 15 mg BID PO Last administered on 05/31/17 08:55; Admin Dose 15 MG; Start 05/30/17 at 21:00 Hydrocortisone (Hydrocortisone 1% Cr) 1 applic BID TOP ; Start 05/31/17 at 12:00 KRIS CLAYTON MD May 31, 2017 11:36
[2017-05-31] MEDS: LORAZEPAM 1 MG TAB PO PRN (12:29)
[2017-05-31] MEDS: ONDANSETRON 4 MG INJ IV PRN (15:24)
[2017-05-31] MEDS: HYDROCORTISONE 1% 28 GM CR TOP SCH ×2 (16:12→20:14)
[2017-05-31] MEDS: oxyCODONE (CR) 20 MG TAB [oxyCONTIN] PO SCH (20:13)
[2017-05-31] MEDS: traZODone 50 MG TAB PO SCH (20:13)
[2017-05-31 20:15] VITALS: BP 115/78; RESP 20
[2017-05-31 22:00] VITALS: BP 106/68; PULSE 108; RESP 20
[2017-06-01] MEDS: HYDROmorphONE 2 MG/ML SYG IV PRN ×7 (01:14→23:21)
[2017-06-01 02:38] VITALS: BP 117/81; RESP 18
[2017-06-01 07:00] VITALS: BP 99/67; RESP 18
[2017-06-01] MEDS: POLYETHYLENE GLYCOL 17 GM PACKET PO SCH (08:35)
[2017-06-01] MEDS: SENNA/DOCUSATE NA (8.6MG/50MG) TAB PO SCH (08:36)
[2017-06-01] MEDS: oxyCODONE (CR) 20 MG TAB [oxyCONTIN] PO SCH ×2 (08:37→21:59)
[2017-06-01] MEDS: DEXAMETHASONE 2 MG TAB PO SCH ×2 (08:37→20:25)
[2017-06-01] MEDS: HYDROCORTISONE 1% 28 GM CR TOP SCH ×2 (08:42→20:30)
[2017-06-01] MEDS: HYDROmorphONE 2 MG TAB PO PRN (09:34)
--- NOTE | 2017-06-01 12:09 | CONS ---
Date/Time of Note Date/Time of Note DATE: 06/01/17 TIME: 12:07 Assessment/Plan Assessment/Plan Chief Complaint/Hosp Course 41 yo with Impression: # 4cm R Breast Mass with right axillary lymphadenopathy - now confirmed as ER+/ LA+/Her2 + metastatic breast cancer -pt will need port a cath in anticipation of chemotherapy. scheduled for tomorrow -Echo in anticipation of Herceptin. Echo done. waiting for read -once patient completes her palliative radiation will plan to start chemotherapy with THP -CT A/P also demonstrates liver lesions #Large Bilateral Pleural Effusions -s/p thoracentesis -f/u fluid cytology #Lytic Lesions wit compression fractures at C5, T10 and L2 -bone scan revealed numerous foci of increased tracer activity are seen in the frontal calvarium, upper sternum, spine, left sacroiliac joint, right mid anterior rib cage -continue with 10 fractions of XRT -pt to receive 3 rd dose tomorrow #Pneumonia-pt with elevated lactate -continue antibiotics #pain-continue current pain regimen -continue po dilaudid and norco for bone pain Problems: Consultation Date/Type/Reason Admit Date/Time May 14, 2017 at 13:40 Initial Consult Date 05/17/17 Type of Consultation: Oncology Reason for Consultation metastatic breast cancer Referring Provider: KRIS CLAYTON MD 24 HR Interval Summary Free Text/Dictation going for radiation today. still requiring Dilaudid IV. started Oxycontin 20mg BID with Dilaudid 4mg po q 4 prn Exam/Review of Systems Vital Signs Vitals Vital Signs Date Time Temp Pulse Resp B/P Pulse Ox O2 Delivery O2 Flow Rate FiO2 06/01/17 08:45 Nasal Cannula 3.5 06/01/17 07:00 98.7 93 18 99/67 100 Intake and Output 05/31/17 05/31/17 06/01/17 15:00 23:00 07:00 Intake Total 1800 ml 700 ml Balance 1800 ml 700 ml Exam Constitutional: alert, frail, oriented Psych: anxiety, depression Head: normocephalic Eyes: nl conjunctiva ENMT: nl external ears & nose Neck: non-tender, supple Respiratory: clear to auscultation Cardiovascular: regular rate and rhythm Gastrointestinal: soft Musculoskeletal: nl extremities to inspection Extremities: normal pulses Medications Medications Current Medications Acetaminophen (Tylenol Tab) 650 mg Q6H PRN PO PAIN LEVEL 1-3 OR FEVER Last administered on 05/18/17 04:56; Admin Dose 650 MG; Start 05/14/17 at 18:00 Docusate Sodium (Colace) 100 mg Q12H PRN PO CONSTIPATION Last administered on 05/30/17 09:00; Admin Dose 100 MG; Start 05/14/17 at 18:00 Nicotine Polacrilex (Nicorette) 2 mg Q2H PRN BUCCAL agitation; Start 05/14/17 at 18:00 Ondansetron HCl (Zofran Inj) 4 mg Q4 PRN IV NAUSEA AND/OR VOMITING Last administered on 05/31/17 15:24; Admin Dose 4 MG; Start 05/14/17 at 20:30 Enoxaparin Sodium (Lovenox) 40 mg DAILY SC Last administered on 05/27/17 09: 55; Admin Dose 40 MG; Start 05/16/17 at 09:00; Status Future Hold Lorazepam (Ativan) 1 mg Q6H PRN PO ANXIETY Last administered on 05/31/17 12:29 ; Admin Dose 1 MG; Start 05/16/17 at 15:30 Trazodone HCl (Desyrel) 25 mg HS PO Last administered on 05/31/17 20:13; Admin Dose 25 MG; Start 05/17/17 at 21:00 Senna/Docusate Sodium (Senokot-S) 1 tab AM PO Last administered on 05/31/17 08 :54; Admin Dose 1 TAB; Start 05/17/17 at 09:00 Hydromorphone HCl (Dilaudid) 2 mg Q3 PRN IV PAIN Last administered on 07:11; Admin Dose 2 MG; Start 05/18/17 at 18:12 Dexamethasone (Decadron) 2 mg BID PO Last administered on 06/01/17 08:37; Admin Dose 2 MG; Start 05/20/17 at 15:37 Polyethylene Glycol (Miralax) 17 gm DAILY PO Last administered on 05/31/17 08: 55; Admin Dose 17 GM; Start 05/29/17 at 14:30 Hydromorphone HCl (Dilaudid) 4 mg Q4H PRN PO PAIN LEVEL 1-5 Last administered on 06/01/17 09:34; Admin Dose 4 MG; Start 05/30/17 at 18:30 Hydrocortisone (Hydrocortisone 1% Cr) 1 applic BID TOP Last administered on 08:42; Admin Dose 1 APPLIC; Start 05/31/17 at 12:00 Oxycodone HCl (Oxycontin) 20 mg BID PO Last administered on 06/01/17 08:37; Admin Dose 20 MG; Start 05/31/17 at 21:00 CHARLOTTE DÍAZ M.D. Jun 01, 2017 12:09
[2017-06-01] MEDS: LORAZEPAM 1 MG TAB PO PRN ×2 (12:16→18:54)
[2017-06-01 14:00] VITALS: BP 110/67; RESP 20
--- NOTE | 2017-06-01 14:57 | PN ---
Date/Time of Note Date/Time of Note DATE: 06/01/17 TIME: 14:56 Assessment/Plan VTE Prophylaxis VTE Prophylaxis Intervention: SCD's Lines/Catheters IV Catheter Type (from Nrsg): PORTACATH Urinary Cath still in place: No Assessment/Plan Assessment/Plan 41 yo F presented for SOB, found to have stage 4 breast Ca with malignant pleural effusion and bone mets. #breast ca: invasive ductal ER+/OR+/Her2 + c/b spine mets and bl pleural effusions -port placed . outpatient onc f/u for chemo. Onc appt 06.13 -palliative RT -pain control improved with increased oxycontin dose -PT advising home PT-->CM cs placed #hypoxic respiratory insufficiency 2/2 bl metastatic pleural effusions sp drainage # DVT prophx-low molecular weight heparin CM consulted for help with transportation back and forth to radiation, home O2 and HHPT Subjective 24 Hr Interval Summary Free Text/Dictation pain control improved Exam/Review of Systems Vital Signs Vitals Vital Signs Date Time Temp Pulse Resp B/P Pulse Ox O2 Delivery O2 Flow Rate FiO2 06/01/17 14:00 98.7 118 20 110/67 100 06/01/17 08:45 Nasal Cannula 3.5 Intake and Output 05/31/17 05/31/17 06/01/17 15:00 23:00 07:00 Intake Total 1800 ml 700 ml Balance 1800 ml 700 ml Exam nad, smiling at times no mrg lungs clear abd soft no rashes Medications Medications Current Medications Acetaminophen (Tylenol Tab) 650 mg Q6H PRN PO PAIN LEVEL 1-3 OR FEVER Last administered on 05/18/17 04:56; Admin Dose 650 MG; Start 05/14/17 at 18:00 Docusate Sodium (Colace) 100 mg Q12H PRN PO CONSTIPATION Last administered on 05/30/17 09:00; Admin Dose 100 MG; Start 05/14/17 at 18:00 Nicotine Polacrilex (Nicorette) 2 mg Q2H PRN BUCCAL agitation; Start 05/14/17 at 18:00 Ondansetron HCl (Zofran Inj) 4 mg Q4 PRN IV NAUSEA AND/OR VOMITING Last administered on 05/31/17 15:24; Admin Dose 4 MG; Start 05/14/17 at 20:30 Enoxaparin Sodium (Lovenox) 40 mg DAILY SC Last administered on 05/27/17 09: 55; Admin Dose 40 MG; Start 05/16/17 at 09:00; Status Future Hold Lorazepam (Ativan) 1 mg Q6H PRN PO ANXIETY Last administered on 06/01/17 12:16 ; Admin Dose 1 MG; Start 05/16/17 at 15:30 Trazodone HCl (Desyrel) 25 mg HS PO Last administered on 05/31/17 20:13; Admin Dose 25 MG; Start 05/17/17 at 21:00 Senna/Docusate Sodium (Senokot-S) 1 tab AM PO Last administered on 05/31/17 08 :54; Admin Dose 1 TAB; Start 05/17/17 at 09:00 Hydromorphone HCl (Dilaudid) 2 mg Q3 PRN IV PAIN Last administered on 14:11; Admin Dose 2 MG; Start 05/18/17 at 18:12 Dexamethasone (Decadron) 2 mg BID PO Last administered on 06/01/17 08:37; Admin Dose 2 MG; Start 05/20/17 at 15:37 Polyethylene Glycol (Miralax) 17 gm DAILY PO Last administered on 05/31/17 08: 55; Admin Dose 17 GM; Start 05/29/17 at 14:30 Hydromorphone HCl (Dilaudid) 4 mg Q4H PRN PO PAIN LEVEL 1-5 Last administered on 06/01/17 09:34; Admin Dose 4 MG; Start 05/30/17 at 18:30 Hydrocortisone (Hydrocortisone 1% Cr) 1 applic BID TOP Last administered on 08:42; Admin Dose 1 APPLIC; Start 05/31/17 at 12:00 Oxycodone HCl (Oxycontin) 20 mg BID PO Last administered on 06/01/17 08:37; Admin Dose 20 MG; Start 05/31/17 at 21:00 KRIS CLAYTON MD Jun 01, 2017 14:57
[2017-06-01] MEDS: ONDANSETRON 4 MG INJ IV PRN (16:10)
[2017-06-01 20:21] VITALS: BP 116/80; RESP 20
[2017-06-01] MEDS: traZODone 50 MG TAB PO SCH (20:26)
[2017-06-02] MEDS: HYDROmorphONE 2 MG/ML SYG IV PRN ×5 (03:47→16:04)
[2017-06-02] MEDS: LORAZEPAM 1 MG TAB PO PRN (05:22)
[2017-06-02] MEDS ORDERED: FUROSEMIDE 40 MG INJ IV ONE (07:00)
[2017-06-02 08:49] VITALS: BP 116/79; RESP 18
[2017-06-02] MEDS: HYDROCORTISONE 1% 28 GM CR TOP SCH (09:00)
[2017-06-02] MEDS: POLYETHYLENE GLYCOL 17 GM PACKET PO SCH (09:16)
[2017-06-02] MEDS: DEXAMETHASONE 2 MG TAB PO SCH (09:16)
[2017-06-02] MEDS: SENNA/DOCUSATE NA (8.6MG/50MG) TAB PO SCH (09:16)
[2017-06-02] MEDS: oxyCODONE (CR) 20 MG TAB [oxyCONTIN] PO SCH (09:16)
[2017-06-02] MEDS ORDERED: SENN-88 PO (13:21)
[2017-06-02] MEDS ORDERED: POLY17PO6 PO (13:21)
[2017-06-02] MEDS ORDERED: HYDR4TAB PO (13:21)
[2017-06-02] MEDS ORDERED: LORA1TAB PO (13:21)
[2017-06-02] MEDS ORDERED: DEC2 PO (13:21)
[2017-06-02] MEDS ORDERED: DOCU-216 PO (13:21)
[2017-06-02] MEDS ORDERED: OXYC20TA41 PO (13:21)
[2017-06-02] MEDS ORDERED: TRAZ50TA18 PO (13:23)
--- NOTE | 2017-06-02 13:29 | PDOCDIS ---
Discharge Instructions CONDITION Patient Condition: Stable HOME CARE INSTRUCTIONS: Diet Instructions: RegularSpecial Diet: regular ACTIVITY: Activity Restrictions: Slowly Increase Activity Rest between Activity Avoid heavy lifting Avoid Heavy Housework Bathing Restrictions: Shower FOLLOW UP/APPOINTMENTS Follow-up Plan Follow up with Dr Swanson on the as scheduled If you have any issues with transportation back and forth to [facility], call the hospital and ask for Rima thomas case management specialist REFERRALS Agency Name and Phone Number: [facility] [phone] KRIS CLAYTON MD Jun 02, 2017 13:29
--- NOTE | 2017-06-02 13:29 | PDOCDIS ---
Discharge Instructions CONDITION Patient Condition: Stable HOME CARE INSTRUCTIONS: Diet Instructions: RegularSpecial Diet: regular ACTIVITY: Activity Restrictions: Slowly Increase Activity Rest between Activity Avoid heavy lifting Avoid Heavy Housework Bathing Restrictions: Shower FOLLOW UP/APPOINTMENTS Follow-up Plan Follow up with Dr Swanson on the as scheduled If you have any issues with transportation back and forth to [facility], call the hospital and ask for Rima thomas immigration case manager REFERRALS Agency Name and Phone Number: [facility] [phone] KRIS CLAYTON MD Jun 02, 2017 13:29
--- NOTE | 2017-06-02 13:46 | DS ---
Date/Time of Note Date/Time of Note DATE: 06/02/17 TIME: 13:29 Discharge Summary Admission/Discharge Info Admit Date/Time May 14, 2017 at 13:40 Discharge Date/Time Discharge Diagnosis ER+/HI+/Her2 + breast cancer with metastases to bone, liver, pleural space Patient Condition: Stable Consults oncology, palliative care, radiation oncology Procedures 10.16 CXR IMPRESSION: Extensive bilateral alveolar infiltrates throughout the lungs. Large left pleural effusion and moderate right pleural effusion. 10.17 CTA chest IMPRESSION: No visualized pulmonary embolus. Large bilateral pleural effusions. Complete atelectasis/consolidation of the left lower lobe and perihilar consolidation in the right middle and lower lobes, with ground-glass opacity in scattered areas of lesser consolidation throughout the remainder of the lungs. Findings could be the sequelae of fluid overload and pulmonary edema or multifocal infection/pneumonia. Potential 4.0 cm mass in the right breast with overlying skin thickening. Finding raises high suspicion for right breast cancer. Multiple prominent lymph nodes in the right axilla. Finding may reflect metastatic disease. Scattered lytic lesions throughout the spine with additional lytic lesions seen in the anterior right second rib and sternum. Finding suggest metastatic disease. Compression fractures of the C5, T10 and L2 vertebral bodies. These likely reflect a pathologic compression fractures. 10.18 L sided thoracentesis fluid cytology: -- Metastatic adenocarcinoma, compatible with breast primary. 10.19 IR needle core breast biopsy Right breast mass, needle core biopsies: -- Invasive moderately differentiated ductal carcinoma, no special type. -- Histologic grade ([place] Histologic Score): Tubular differentiation: Score 3. Nuclear pleomorphism: Score 2. Mitotic rate: Score 1. Overall grade: Grade 2 (score 6/9). -- Tumor volume/size: Tumor involves all core biopsies, compose approximately 95% of the specimen volume and the largest focus measures 0.5 cm. -- Necrosis: Absent. -- Microcalcification: Absent. -- Ductal carcinoma in situ (DCIS): Absent. -- Lobular carcinoma in situ (LCIS): Absent. -- Pathologic staging (pTNM): pTx pNx. -- ER (nuclear): Positive, strong, 90%. (Reference range: Negative: < 1%; Positive: > 1%) -- HI (nuclear): Positive, strong, 40%. (Reference range: Negative: < 1%; Positive: > 1%) -- Ki-67: High proliferative index, 30%. (Reference range: Low: < 10%; Borderline: 10-20%; High: > 20%) -- Her-2/keith by IHC: POSITIVE, Score 3+. (Reference range: Negative 0-1+; Equivocal 2+; Positive 3+) 10.20 thora R lung 10.20 NM bone scan IMPRESSION: Numerous foci of increased tracer activity in the skeleton, as described above, demonstrate a scintigraphic pattern most concerning for skeletal metastases. 10.21 CT AP IMPRESSION: 1. Large bilateral pleural effusions and atelectasis at the lung bases with left worse than right. 2. Small pericardial effusion. 3. Abnormal appearance of the breast consistent with known neoplasm at this site. 4. Liver masses consistent with neoplasm. 5. Mass posteriorly in the right side of the pelvis measuring 5.1 x 5.8 cm. 6. Distended urinary bladder. 7. Multiple osseous lytic lesions with pathologic fractures consistent with neoplasm. 10.30: chest port placement Hx of Present Illness CC back pain/SOB x 3 days HPI 41 yo F with no known chronic medical problems presents with 3 days of SOB, decreased appetite and bl LBP. Pt denies fevers or chills. Reports fatigue. No chest pain. Also reports some bl LE edema as well Denies any personal hx of asthma or COPD Hospital Course 41 yo F presented for SOB, found to have stage 4 breast Ca with malignant pleural effusion and bone mets. Pt seen by onc, port placed and outpatient onc f /u arranged. Pt seen by rad onc and palliative RT started for spinal mets. Pain controlled with steroids and opiates. Pt to f/u with oncologist to start chemo. Home Meds Active Scripts Trazodone Hcl* (Desyrel*) 50 Mg Tab, 25 MG PO HS for 14 Days, #14 TAB Prov:KRIS CLAYTON MD 06/02/17 Dexamethasone* (Decadron*) 2 Mg Tab, 2 MG PO BID for 30 Days, #60 TAB Prov:KRIS CLAYTON MD 06/02/17 Sennosides/Docusate Sodium (Senna Plus Tablet) 1 Each Tablet, 1 TAB PO AM for 30 Days, #30 TAB Prov:KRIS CLAYTON MD 06/02/17 Polyethylene Glycol* (Miralax*) 17 Gm Powd.pack, 17 GM PO DAILY for 30 Days, # 30 DOSE Prov:KRIS CLAYTON MD 06/02/17 Docusate Sodium (Dok) 100 Mg Capsule, 100 MG PO Q12H Y for CONSTIPATION for 30 Days, #60 CAP Prov:KRIS CLAYTON MD 06/02/17 Follow-up Plan Follow up with Dr Díaz on the as scheduled If you have any issues with transportation back and forth to radiation, call the hospital and ask for Rima the case management rncounselor manager Provider Care Physician No Primary Time spent on discharge: > 30 minutes Copies To: CC: CHARLOTTE DÍAZ M.D., ELLEN MD Jun 02, 2017 13:40
== END 2017-06-02 16:50 | disposition home health service (06) | DRG 871 ==
LOC: E/R 10:53 → TEL 13:40 → MS1 05-23 11:29
PROVIDERS: ADMIT Internal Medicine; ATTEND Internal Medicine
PROC: 0W993ZX Drainage of Right Pleural Cavity, Percutaneous Approach, Diagnostic (ICD-10-PCS; 2017-05-16)
PROC: 0HBT3ZX Excision of Right Breast, Percutaneous Approach, Diagnostic (ICD-10-PCS; principal; 2017-05-17)
PROC: 0W9B3ZX Drainage of Left Pleural Cavity, Percutaneous Approach, Diagnostic (ICD-10-PCS; 2017-05-18)
DX: A41.9 Sepsis, unspecified organism (principal); J18.9 Pneumonia, unspecified organism; J96.00 Acute respiratory failure, unspecified whether with hypoxia or hypercapnia; J91.0 Malignant pleural effusion; C78.2 Secondary malignant neoplasm of pleura; C78.7 Secondary malignant neoplasm of liver and intrahepatic bile duct; M48.52XA Collapsed vertebra, not elsewhere classified, cervical region, initial encounter for fracture; C79.51 Secondary malignant neoplasm of bone; I31.3 Pericardial effusion (noninflammatory); M48.56XA Collapsed vertebra, not elsewhere classified, lumbar region, initial encounter for fracture; M48.54XA Collapsed vertebra, not elsewhere classified, thoracic region, initial encounter for fracture; N12 Tubulo-interstitial nephritis, not specified as acute or chronic; J98.11 Atelectasis; C50.911 Malignant neoplasm of unspecified site of right female breast; M89.8X9 Other specified disorders of bone, unspecified site; Y95 Nosocomial condition; R59.1 Generalized enlarged lymph nodes; R19.09 Other intra-abdominal and pelvic swelling, mass and lump; R65.20 Severe sepsis without septic shock; Z87.891 Personal history of nicotine dependence
CPT/HCPCS: 36415; 36561; 71010; 71275; 74177; 76942; 77014; 77412; 78306; 80048; 80053; 81001; 82945; 83605; 83615; 83735; 83880; 84100; 84145; 84157; 84484; 85025; 85378; 85610; 85730; 86703; 87040; 87070; 87086; 87102; 87116; 88104; 88305; 88307; 88341; 88342; 89051; 93005; 93306; 96372; 96374; 96375; 97162; A9503; C1788; J0690; J0696; J1170; J1644; J1650; J1940; J2060; J2250; J2370; J2405; J2543; J3010; J3370; J7030; J7040; Q9967

== ENCOUNTER 2017-06-02 21:02 | Inpatient (IN) | payer MEDICAID ==
[~2017-06-02] VITALS: Ht 157.5 cm; Wt 54.5 kg
[~2017-06-02 21:02] MED LIST: DEC2 PO; DOCU-216 PO; HYDR4TAB PO; LORA1TAB PO; OXYC20TA41 PO; POLY17PO6 PO; SENN-88 PO; TRAZ50TA18 PO
[2017-06-02] MEDS ORDERED: ACETAMINOPHEN 325 MG TAB PO PRN (22:00)
[2017-06-02] MEDS ORDERED: ONDANSETRON 4 MG INJ IV PRN (22:00)
--- NOTE | 2017-06-02 22:14 | ERD ---
ER Documentation Chief Complaint Chief Complaint SOB and unable to fill medications just d/c'ed home at 1800 HPI This is a 41-year-old female with a past medical history of metastatic breast cancer with metastases and compression fractures to the spine and axillary lymphadenopathy, admitted to the hospital since the beginning of April and discharged today, returning to the emergency department with concerns of her outpatient regimen. She was sent home with a oxygen tank, but it ran out and her O2 tank at home has not yet arrived. She was also discharged with a prescription for Dilaudid, but she was unable to get this filled. The patient' s last dose of p.o. Dilaudid was at 4 PM today. She went to several pharmacies that she could find that were still open, but none of them carried Dilaudid. Her pain started to return, and she did not know what to do, so she came to the emergency department. The patient's heart rate is elevated, but she notes that this happens when her pain is uncontrolled. She endorses right sided scapular pain. The patient has been using between 3 L and 4 L of oxygen at baseline. She does endorse pleural effusions that required pleurocentesis. She also had a port placed last Sunday. The patient denies feeling sick recently. The patient denies fever or chills. The patient has had no headache or vision changes. The patient does not endorse neck pain. The patient denies lightheadedness or dizziness. The patient has had no chest pain. The patient denies nausea or vomiting. The patient denies abdominal pain or changes to bowel movements or urination. The patient has had no focal deficits. The patient has had no weakness or numbness or tingling to the face or extremities. ROS All systems reviewed and are negative except as per history of present illness. Medications Home Meds Active Scripts Trazodone Hcl* (Desyrel*) 50 Mg Tab, 25 MG PO HS for 14 Days, #14 TAB Prov:KRIS CLAYTON MD 06/02/17 Dexamethasone* (Decadron*) 2 Mg Tab, 2 MG PO BID for 30 Days, #60 TAB Prov:KRIS CLAYTON MD 06/02/17 Sennosides/Docusate Sodium (Senna Plus Tablet) 1 Each Tablet, 1 TAB PO AM for 30 Days, #30 TAB Prov:KRIS CLAYTON MD 06/02/17 Polyethylene Glycol* (Miralax*) 17 Gm Powd.pack, 17 GM PO DAILY for 30 Days, # 30 DOSE Prov:KRIS CLAYTON MD 06/02/17 Docusate Sodium (Dok) 100 Mg Capsule, 100 MG PO Q12H Y for CONSTIPATION for 30 Days, #60 CAP Prov:KRIS CLAYTON MD 06/02/17 Oxycodone Hcl* (Oxycontin*) 20 Mg Tab.er.12h, 20 MG PO BID for 14 Days, #28 TAB Prov:KRIS CLAYTON MD 06/02/17 Lorazepam* (Lorazepam*) 1 Mg Tablet, 1 MG PO Q6H Y for ANXIETY for 14 Days, #5 TAB Prov:KRIS CLAYTON MD 06/02/17 Hydromorphone Hcl* (Hydromorphone Hcl*) 4 Mg Tablet, 4 MG PO Q4H Y for PAIN for 14 Days, #60 TAB Prov:KRIS CLAYTON MD 06/02/17 Allergies Allergies: Coded Allergies: No Known Allergy (Unverified , 05/14/17) PMhx/Soc Medical and Surgical Hx: pt denies Medical Hx, pt denies Surgical Hx History of Surgery: No Anesthesia Reaction: No Hx Neurological Disorder: No Hx Respiratory Disorders: No Hx Cardiac Disorders: No Hx Psychiatric Problems: No Hx Miscellaneous Medical Probl: Yes (Metastatic Breast Ca, Pathologic Spinal Compression Fractures) Hx Alcohol Use: Yes (FORMER) Hx Substance Use: No Hx Tobacco Use: Yes Smoking Status: Former smoker FmHx Family History: No coronary disease, No diabetes Physical Exam Vitals Vital Signs Date Time Temp Pulse Resp B/P Pulse Ox O2 Delivery O2 Flow Rate FiO2 06/02/17 22:00 134 20 118/79 100 Nasal Cannula 3.0 06/02/17 21:06 97.8 115 20 122/84 96 06/02/17 21:05 118 18 124/85 96 Nasal Cannula 3.0 06/02/17 21:05 Nasal Cannula 3.0 Physical Exam Const: No apparent distress, well-developed, cachectic Head: Atraumatic Eyes: Normal Conjunctiva. Extraocular movements intact. ENT: Normal External Ears, Nose and Mouth. His mucous membranes Neck: Full range of motion. No meningismus. Resp: Bibasilar rales, left greater than right Cardio: Regular rhythm, tachycardia, no murmurs Abd: Soft, non tender, non distended. Normal bowel sounds Skin: No petechiae or rashes Back: No midline or flank tenderness Ext: No cyanosis, or edema Neur: Awake and alert, oriented 4. Cranial nerves intact. No facial droop. Normal strength and sensation in all extremities. Coordination with finger to nose normal. Psych: Normal Mood and Affect Results 24 hrs Current Medications Medications (Trade) Dose Ordered Sig/Jose Cruz Route PRN Reason Start Time Stop Time Status Last Admin Dose Admin Ondansetron HCl (Zofran Inj) 4 mg ER BRIDGE PRN IV NAUSEA AND/OR VOMITING 06/02/17 22:00 06/03/17 21:59 Acetaminophen (Tylenol Tab) 650 mg ER BRIDGE PRN PO MILD PAIN/FEVER 06/02/17 22:00 06/03/17 21:59 Procedures/MDM MDM The patient's presentation warrants further investigation. Unfortunately the patient was discharged late in the day without opportunity to get her pain medications filled. Additionally, the patient's O2 cannisters have not yet arrived at home, and the one provided to her today prior to discharge was nearly empty and completed prior to arrival to the ER this evening. The patient has significant patholgy, and I do not feel comfortable sending her home without these regimens in place. In discussing with the admitting physician, it was decided to admit for pain control. EKG EKG read by me: Rate/Rhythm: Regular rhythm, sinus tachycardia at a rate of 121 Intervals: Normal [place]: Normal Impression: Nonspecific repolarization abnormalities, but no evidence of ischemia or arrhythmia TREATMENT/DISPOSITION The patient was started on 3L NC and given 1mg dilaudid IV with improvement of her symptoms. At this time, I feel that the patient requires admission for further evaluation and management. The patient will be admitted to Panel in accordance with the patient's insurance. The patient was accepted by Dr. Redman at 22:00PM on June 02, 2017. Departure Diagnosis: Primary Impression: Metastatic cancer to lung Laterality: unspecified laterality Qualified Code: C78.00 - Malignant neoplasm metastatic to lung, unspecified laterality Additional Impression: Inadequate pain control Condition: GIANNI Keenan MD Jun 02, 2017 22:13
[2017-06-02] MEDS ORDERED: HYDROmorphONE 1 MG/ML SYG IV STA (22:32)
[2017-06-02 23:58] VITALS: TEMP 97.8
[2017-06-03] VITALS (11 sets, daily range): BP systolic 95–120; BP diastolic 59–78; PULSE 92–123; RESP 16–22; Ht 157.5 cm; Wt 54.5 kg
[2017-06-03] MEDS ORDERED: HYDROmorphONE 4 MG TAB PO ONE (02:00)
[2017-06-03] MEDS: HYDROmorphONE 1 MG/ML SYG IV PRN ×6 (02:20→20:48)
[2017-06-03] MEDS ORDERED: ACETAMINOPHEN 325 MG TAB PO PRN (06:30)
[2017-06-03] MEDS ORDERED: DOCUSATE SODIUM 100 MG CAP PO PRN (06:30)
[2017-06-03] MEDS ORDERED: NACL 0.9% 3 ML SYG IV SCH (06:30)
--- NOTE | 2017-06-03 08:07 | HP ---
Date/Time of Note Date/Time of Note DATE: 06/03/17 TIME: 08:07 Assessment/Plan VTE Prophylaxis VTE Prophylaxis Intervention: SCD's Lines/Catheters IV Catheter Type (from Nrsg): Saline Lock Assessment/Plan Assessment/Plan 41 yo F with newly diagnosed stage 4 breast ca with mets to bones and pleural space readmitted because home O2 had not arrived and multiple pharmacies were unable to fill her dilaudid rx PLAN CM consult continue home meds I rx'ed yesterday HPI/ROS Admit Date/Time Admit Date/Time Jun 02, 2017 at 22:02 Hx of Present Illness CC pharmacy wouldnt fill meds HPI 41 yo F with newly diagnosed stage 4 breast ca with mets to bones/pleural space who I discharged yesterday returned in the evening because home health never delivered her oxygen and multiple pharmacies were unable to fill her PO dilaudid. PMH/Family/Social Past Medical History as per [facility] Social History Smoking Status: Former smoker Exam/Review of Systems Vital Signs Vitals Vital Signs Date Time Temp Pulse Resp B/P Pulse Ox O2 Delivery O2 Flow Rate FiO2 06/03/17 08:02 98.6 109 16 95/59 99 06/03/17 01:36 Nasal Cannula 3.0 Intake and Output 06/02/17 06/02/17 06/03/17 15:00 23:00 07:00 Intake Total 800 ml Balance 800 ml Exam Exam EOMI MMM tachy, no mrg lungs clear abd soft no rashes +LE edema Medications Medications Current Medications Hydromorphone HCl (Dilaudid) 1 mg Q4H PRN IV PAIN Last administered on t 05:55; Admin Dose 1 MG; Start 06/03/17 at 02:30 Ondansetron HCl (Zofran Inj) 4 mg Q6H PRN IV NAUSEA AND/OR VOMITING; Start 06/03/17 at 06:30 Acetaminophen (Tylenol Tab) 650 mg Q6H PRN PO PAIN LEVEL 1-3 OR FEVER; Start 06/03/17 at 06:30 Dexamethasone (Decadron) 2 mg BID PO ; Start 06/03/17 at 09:00 Docusate Sodium (Colace) 100 mg Q12H PRN PO CONSTIPATION; Start 06/03/17 at 06: 30 Lorazepam (Ativan) 1 mg Q6H PRN PO ANXIETY; Start 06/03/17 at 06:30 Oxycodone HCl (Oxycontin) 20 mg BID PO ; Start 06/03/17 at 09:00 Polyethylene Glycol (Miralax) 17 gm DAILY PO ; Start 06/03/17 at 09:00 Senna/Docusate Sodium (Senokot-S) 1 tab AM PO ; Start 06/03/17 at 09:00 Trazodone HCl (Desyrel) 25 mg HS PO ; Start 06/03/17 at 21:00 KRIS CLAYTON MD Jun 03, 2017 08:07
[2017-06-03] MEDS ORDERED: HYDROmorphONE 4 MG TAB PO PRN (08:30)
[2017-06-03] MEDS: SENNA/DOCUSATE NA (8.6MG/50MG) TAB PO SCH (08:57)
[2017-06-03] MEDS: DEXAMETHASONE 2 MG TAB PO SCH ×2 (08:57→20:48)
[2017-06-03] MEDS: oxyCODONE (CR) 10 MG TAB [oxyCONTIN] PO SCH ×2 (08:57→22:04)
[2017-06-03] MEDS: POLYETHYLENE GLYCOL 17 GM PACKET PO SCH (08:57)
[2017-06-03] MEDS: traZODone 50 MG TAB PO SCH (20:48)
[2017-06-04] MEDS: HYDROmorphONE 1 MG/ML SYG IV PRN ×5 (00:19→23:12)
[2017-06-04 01:53] VITALS: BP 96/64; RESP 16
[2017-06-04] MEDS: LORAZEPAM 1 MG TAB PO PRN ×2 (02:00→12:26)
[2017-06-04 08:13] VITALS: BP 99/57; PULSE 111; RESP 18
[2017-06-04] MEDS: DEXAMETHASONE 2 MG TAB PO SCH ×2 (08:24→21:00)
[2017-06-04] MEDS: SENNA/DOCUSATE NA (8.6MG/50MG) TAB PO SCH (08:24)
[2017-06-04] MEDS: POLYETHYLENE GLYCOL 17 GM PACKET PO SCH (08:24)
[2017-06-04] MEDS: oxyCODONE (CR) 10 MG TAB [oxyCONTIN] PO SCH ×2 (08:24→21:00)
[2017-06-04 08:27] VITALS: BP 99/57; RESP 18
[2017-06-04] MEDS: HYDROmorphONE 2 MG TAB PO PRN (11:41)
[2017-06-04] MEDS: ONDANSETRON 4 MG INJ IV PRN (15:19)
--- NOTE | 2017-06-04 15:42 | PN ---
Date/Time of Note Date/Time of Note DATE: 06/04/17 TIME: 15:38 Assessment/Plan VTE Prophylaxis VTE Prophylaxis Intervention: LMWH Lines/Catheters IV Catheter Type (from Nrs): PORT A CATH Assessment/Plan Chief Complaint/Hosp Course 41 yo F with newly diagnosed stage 4 breast ca with mets to bones and pleural space, status post chemotherapy and now on radiation, readmitted because home O2 had not arrived and multiple pharmacies were unable to fill her dilaudid rx. 1. 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 Lytic Lesions with compression fractures at C5, T10 and L2, -continue radiation treatment for rad Onc recommendations -Port a cath placement performed on last admission -continue pain and anxiety control - follow-up with case management regarding oxygen, as well as helping patient get her p.o. Dilaudid prescription filled. 2. DVT prophx-low molecular weight heparin Problems: Subjective 24 Hr Interval Summary Free Text/Dictation Patient had radiation treatment earlier today. Still having pain complaints. Exam/Review of Systems Vital Signs Vitals Vital Signs Date Time Temp Pulse Resp B/P Pulse Ox O2 Delivery O2 Flow Rate FiO2 06/04/17 08:27 98.1 111 18 99/57 100 06/04/17 08:13 Nasal Cannula 3.0 Intake and Output 06/03/17 06/03/17 06/04/17 14:59 22:59 06:59 Intake Total 600 ml 700 ml Output Total 680 ml Balance 600 ml 20 ml Exam Lying in bed, in mild distress Pupils equal round reactive to light, EOMI Supple tachy, no mrg lungs clear abd soft no focal deficits +LE edema Results Result Diagram: 06/03/1782106/03/17821 Medications Medications Current Medications Hydromorphone HCl (Dilaudid) 1 mg Q4H PRN IV PAIN Last administered on 13:03; Admin Dose 1 MG; Start 06/03/17 at 02:30 Ondansetron HCl (Zofran Inj) 4 mg Q6H PRN IV NAUSEA AND/OR VOMITING Last administered on 06/04/17 15:19; Admin Dose 4 MG; Start 06/03/17 at 06:30 Acetaminophen (Tylenol Tab) 650 mg Q6H PRN PO PAIN LEVEL 1-3 OR FEVER Last administered on 06/04/17 15:20; Admin Dose 650 MG; Start 06/03/17 at 06:30 Dexamethasone (Decadron) 2 mg BID PO Last administered on 06/04/17 08:24; Admin Dose 2 MG; Start 06/03/17 at 09:00 Docusate Sodium (Colace) 100 mg Q12H PRN PO CONSTIPATION; Start 06/03/17 at 06: 30 Lorazepam (Ativan) 1 mg Q6H PRN PO ANXIETY Last administered on 06/04/17 12:26 ; Admin Dose 1 MG; Start 06/03/17 at 06:30 Oxycodone HCl (Oxycontin) 20 mg BID PO Last administered on 06/04/17 08:24; Admin Dose 20 MG; Start 06/03/17 at 09:00 Polyethylene Glycol (Miralax) 17 gm DAILY PO Last administered on 06/04/17 08: 24; Admin Dose 17 GM; Start 06/03/17 at 09:00 Senna/Docusate Sodium (Senokot-S) 1 tab AM PO Last administered on 06/04/17 08 :24; Admin Dose 1 TAB; Start 06/03/17 at 09:00 Trazodone HCl (Desyrel) 25 mg HS PO Last administered on 06/03/17 20:48; Admin Dose 25 MG; Start 06/03/17 at 21:00 Hydromorphone HCl (Dilaudid) 4 mg Q4H PRN PO PAIN Last administered on 11:41; Admin Dose 4 MG; Start 06/04/17 at 11:30 HAYLEY RANDLE Jun 04, 2017 15:42
[2017-06-04] MEDS: ENOXAPARIN 40 MG/0.4 ML SYG SC SCH (16:00)
[2017-06-04 20:20] VITALS: BP 122/77; RESP 18
[2017-06-04] MEDS: traZODone 50 MG TAB PO SCH (21:00)
[2017-06-05] MEDS: HYDROmorphONE 2 MG TAB PO PRN ×4 (01:56→19:48)
[2017-06-05 02:53] VITALS: BP 102/69; RESP 20
[2017-06-05] MEDS ORDERED: VITAMIN A & D 5 GM OINT PACKET TOP ONE (03:07)
[2017-06-05] MEDS: HYDROmorphONE 1 MG/ML SYG IV PRN ×5 (03:17→20:14)
[2017-06-05 08:00] VITALS: BP 121/75; RESP 18
[2017-06-05] MEDS: SENNA/DOCUSATE NA (8.6MG/50MG) TAB PO SCH (08:37)
[2017-06-05] MEDS: POLYETHYLENE GLYCOL 17 GM PACKET PO SCH (08:38)
[2017-06-05] MEDS: oxyCODONE (CR) 10 MG TAB [oxyCONTIN] PO SCH (08:38)
[2017-06-05] MEDS: ENOXAPARIN 40 MG/0.4 ML SYG SC SCH (08:45)
[2017-06-05] MEDS: DEXAMETHASONE 2 MG TAB PO SCH (08:47)
[2017-06-05] MEDS: LORAZEPAM 1 MG TAB PO PRN (09:54)
[2017-06-05] MEDS: ONDANSETRON 4 MG INJ IV PRN (11:32)
[2017-06-05 14:00] VITALS: BP 117/59; RESP 18
--- NOTE | 2017-06-05 14:50 | PN ---
Date/Time of Note Date/Time of Note DATE: 06/05/17 TIME: 14:48 Assessment/Plan VTE Prophylaxis VTE Prophylaxis Intervention: LMWH Lines/Catheters IV Catheter Type (from Nrsg): PORT-A-CATH Assessment/Plan Chief Complaint/Hosp Course 41 yo F with newly diagnosed stage 4 breast ca with mets to bones and pleural space, status post chemotherapy and now on radiation, readmitted because home O2 had not arrived and multiple pharmacies were unable to fill her dilaudid rx. 1. breast ca: - invasive ductal ca- now confirmed as ER+/[place]+/Her2 + metastatic breast cancer. Lytic Lesions with compression fractures at C5, T10 and L2, -continue radiation treatment for rad Onc recommendations -Port a cath placement performed on last admission -continue pain and anxiety control - follow-up with case management regarding oxygen, as well as helping patient get her p.o. Dilaudid prescription filled. 2. DVT prophx-low molecular weight heparin Problems: Subjective 24 Hr Interval Summary Free Text/Dictation Patient had radiation earlier today Still waiting for prescriptions to be filled by pharmacy. Complaining of some lower extremity swelling. Exam/Review of Systems Vital Signs Vitals Vital Signs Date Time Temp Pulse Resp B/P Pulse Ox O2 Delivery O2 Flow Rate FiO2 06/05/17 08:00 98.0 101 18 121/75 97 06/05/17 00:21 Nasal Cannula 3.0 Intake and Output 06/04/17 06/04/17 06/05/17 15:00 23:00 07:00 Intake Total 950 ml Output Total 900 ml Balance 50 ml Exam Lying in bed, in mild distress Pupils equal round reactive to light, EOMI Supple tachy, no mrg lungs clear abd soft no focal deficits +LE edema to ankles Results Result Diagram: 06/03/1782106/03/17821 Medications Medications Current Medications Hydromorphone HCl (Dilaudid) 1 mg Q4H PRN IV PAIN Last administered on 11:37; Admin Dose 1 MG; Start 06/03/17 at 02:30 Ondansetron HCl (Zofran Inj) 4 mg Q6H PRN IV NAUSEA AND/OR VOMITING Last administered on 06/05/17 11:32; Admin Dose 4 MG; Start 06/03/17 at 06:30 Acetaminophen (Tylenol Tab) 650 mg Q6H PRN PO PAIN LEVEL 1-3 OR FEVER Last administered on 06/04/17 15:20; Admin Dose 650 MG; Start 06/03/17 at 06:30 Dexamethasone (Decadron) 2 mg BID PO Last administered on 06/05/17 08:47; Admin Dose 2 MG; Start 06/03/17 at 09:00 Docusate Sodium (Colace) 100 mg Q12H PRN PO CONSTIPATION; Start 06/03/17 at 06: 30 Lorazepam (Ativan) 1 mg Q6H PRN PO ANXIETY Last administered on 06/05/17 09:54 ; Admin Dose 1 MG; Start 06/03/17 at 06:30 Oxycodone HCl (Oxycontin) 20 mg BID PO Last administered on 06/05/17 08:38; Admin Dose 20 MG; Start 06/03/17 at 09:00 Polyethylene Glycol (Miralax) 17 gm DAILY PO Last administered on 06/05/17 08: 38; Admin Dose 17 GM; Start 06/03/17 at 09:00 Senna/Docusate Sodium (Senokot-S) 1 tab AM PO Last administered on 06/05/17 08 :37; Admin Dose 1 TAB; Start 06/03/17 at 09:00 Trazodone HCl (Desyrel) 25 mg HS PO Last administered on 06/03/17 20:48; Admin Dose 25 MG; Start 06/03/17 at 21:00 Hydromorphone HCl (Dilaudid) 4 mg Q4H PRN PO PAIN Last administered on 06:16; Admin Dose 4 MG; Start 06/04/17 at 11:30 Enoxaparin Sodium (Lovenox) 40 mg DAILY SC Last administered on 06/05/17 08:45 ; Admin Dose 40 MG; Start 06/04/17 at 16:00 HAYLEY RANDLE 7, 2017 14:50
[2017-06-05] MEDS ORDERED: FUROSEMIDE 20 MG TAB PO SCH (15:00)
--- NOTE | 2017-06-05 15:09 | PDOCDIS ---
Discharge Instructions CONDITION Patient Condition: Stable HOME CARE INSTRUCTIONS: Diet Instructions: Regular ACTIVITY: Activity Restrictions: Slowly Increase Activity FOLLOW UP/APPOINTMENTS Follow-up Plan Please take your medications as prescribed. Please follow-up with your hematology oncology doctor as well as primary care doctor in the clinic in the next few days. HAYLEY RANDLE Jun 05, 2017 15:09
[2017-06-05] MEDS ORDERED: MORP15TA92 PO (15:12)
[2017-06-05] MEDS ORDERED: LAS20 PO (15:13)
--- NOTE | 2017-06-05 15:19 | DS ---
Date/Time of Note Date/Time of Note DATE: 06/05/17 TIME: 15:13 Discharge Summary Admission/Discharge Info Admit Date/Time Jun 02, 2017 at 22:02 Discharge Date/Time Discharge Diagnosis 1. breast ca: invasive ductal ca- now confirmed as ER+/[place]+/Her2 + metastatic breast cancer 2. anxiety Patient Condition: Stable Hx of Present Illness Hospital Course 41 yo F with newly diagnosed stage 4 breast ca invasive ductal ca- now confirmed as ER+/OH+/Her2 + metastatic breast cancer with lytic Lesions with compression fractures at C5, T10 and L2, status post chemotherapy and now on radiation, readmitted on Jun 02, 2017 because home O2 had not arrived and multiple pharmacies were unable to fill her dilaudid rx. Patient continued radiation therapy while she was here, given pain control medications as well. Also started on p.o. Lasix on the day of discharge given some lower extremity swelling which was mild. Over the course of her hospital stay her anxiety symptoms and pain symptoms improved, she was able to ambulate, tolerated p.o. diet as well. We will try to get the patient her prescriptions from the pharmacy to be delivered here at the hospital which we are in the process of doing and also making sure patient has home oxygen delivered in her house before being discharged later today in improved condition. She will continue with radiation there be as an outpatient for the next few days and follow with hematology oncology doctors in the clinic in the next few days. Home Meds Active Scripts Morphine Sulfate* (Ms Contin*) 15 Mg Tablet.sa, 15 MG PO Q12, #60 TAB Prov:HAYLEY RANDLE 06/05/17 Trazodone Hcl* (Desyrel*) 50 Mg Tab, 25 MG PO HS for 14 Days, #14 TAB Prov:KRIS CLAYTON MD 06/02/17 Dexamethasone* (Decadron*) 2 Mg Tab, 2 MG PO BID for 30 Days, #60 TAB Prov:KRIS CLAYTON MD 06/02/17 Sennosides/Docusate Sodium (Senna Plus Tablet) 1 Each Tablet, 1 TAB PO AM for 30 Days, #30 TAB Prov:KRIS CLAYTON MD 06/02/17 Polyethylene Glycol* (Miralax*) 17 Gm Powd.pack, 17 GM PO DAILY for 30 Days, # 30 DOSE Prov:KRIS CLAYTON MD 06/02/17 Docusate Sodium (Dok) 100 Mg Capsule, 100 MG PO Q12H Y for CONSTIPATION for 30 Days, #60 CAP Prov:KRIS CLAYTON MD 06/02/17 Lorazepam* (Lorazepam*) 1 Mg Tablet, 1 MG PO Q6H Y for ANXIETY for 14 Days, #5 TAB Prov:KRIS CLAYTON MD 06/02/17 Hydromorphone Hcl* (Hydromorphone Hcl*) 4 Mg Tablet, 4 MG PO Q4H Y for PAIN for 14 Days, #60 TAB Prov:KRIS CLAYTON MD 06/02/17 Discontinued Scripts Oxycodone Hcl* (Oxycontin*) 20 Mg Tab.er.12h, 20 MG PO BID for 14 Days, #28 TAB Prov:KRIS CLAYTON MD 06/02/17 Follow-up Plan Please take your medications as prescribed. Please follow-up with your hematology oncology doctor as well as primary care doctor in the clinic in the next few days. Primary Care Provider Care Physician No Primary Time spent on discharge: > 30 minutes HAYLEY RANDLE Jun 05, 2017 15:19
[2017-06-05 20:00] VITALS: BP 127/79; RESP 20
== END 2017-06-05 20:25 | disposition home or self-care (01) | DRG 598 ==
LOC: E/R 21:02 → MS4 22:02 → MS1 06-03 20:02
PROVIDERS: ADMIT Family Medicine; ATTEND Family Medicine
PROC: DPYC7ZZ Contact Radiation of Other Bone (ICD-10-PCS; principal; 2017-06-04)
DX: C50.919 Malignant neoplasm of unspecified site of unspecified female breast (principal); C79.51 Secondary malignant neoplasm of bone; C78.2 Secondary malignant neoplasm of pleura; M84.58XA Pathological fracture in neoplastic disease, other specified site, initial encounter for fracture; Z87.891 Personal history of nicotine dependence; Z17.0 Estrogen receptor positive status [ER+]; F41.9 Anxiety disorder, unspecified; Z92.21 Personal history of antineoplastic chemotherapy; Z98.890 Other specified postprocedural states
CPT/HCPCS: 80048; 85025; 93005; 96374; J1170; J1650; J2405

== ENCOUNTER 2017-07-14 08:51 | Inpatient (IN) | payer MEDICAID ==
[~2017-07-14] VITALS: Ht 157.5 cm; Wt 50.6 kg
[~2017-07-14 08:51] MED LIST changes: +LAS20 PO; +MORP15TA92 PO; -OXYC20TA41 PO
[2017-07-14] MEDS ORDERED: SOD CHLORIDE 0.9% 1,000 ML IV STA (10:13)
[2017-07-14] MEDS ORDERED: ONDANSETRON 4 MG INJ IV STA (10:13)
[2017-07-14] MEDS ORDERED: HYDROmorphONE 1 MG/ML SYG IV STA (10:13)
[2017-07-14 11:08] LABS: ABNORMAL IP MESSAGE 1; BASOPHIL # 0.1 10^3/ul (0.0-0.1); BASOPHILS % 1.2 % (0.0-2.0); EOSINOPHILS % 0.2 % (0.0-7.0); HEMATOCRIT 40.2 % (37.0-47.0); HEMOGLOBIN 13.2 g/dl (12.0-16.0); LYMPHOCYTES # 0.3 10^3/ul (0.8-2.9); LYMPHOCYTES % 7.2 % (15.0-51.0); MEAN CORPUSCULAR HEMOGLOBIN 28.6 pg (29.0-33.0); MEAN CORPUSCULAR HGB CONC 32.8 g/dl (32.0-37.0); MEAN PLATELET VOLUME 9.4 fl (7.4-10.4); MONOCYTE # 0.1 10^3/ul (0.3-0.9); MONOCYTES % 3.3 % (0.0-11.0); NEUTROPHIL # 3.7 10^3/ul (1.6-7.5); NEUTROPHILS % 86.5 % (39.0-77.0); PLATELET COUNT 435 10^3/UL (140-415); RED BLOOD COUNT 4.62 10^6/ul (4.20-5.40); RED CELL DISTRIBUTION WIDTH 19.1 % (11.5-14.5); WHITE BLOOD COUNT 4.3 10^3/ul (4.8-10.8)
[2017-07-14 11:09] LABS: POSITIVE DIFF @See below
[2017-07-14 11:27] LABS: ALBUMIN 3.8 g/dl (3.3-4.9); ALBUMIN/GLOBULIN RATIO 0.97; BILIRUBIN,INDIRECT 0.3 mg/dl (0-1.1); BILIRUBIN,TOTAL 0.3 mg/dl (0.2-1.3); CALCIUM 8.5 mg/dl (8.4-10.2); CREATININE 0.47 mg/dl (0.44-1.00); POTASSIUM 3.6 mmol/L (3.5-5.1); TOTAL PROTEIN 7.7 g/dl (6.1-8.1)
--- NOTE | 2017-07-14 12:14 | RADRPT ---
PROCEDURE: XR Chest. CLINICAL INDICATION: Shortness of breath TECHNIQUE: Single portable view of the chest was obtained. COMPARISON: 05/18/2017 FINDINGS: Cardiac/vascular structures: Obscured cardiomediastinal silhouette. Left port tip just distal to th e cavoatrial junction. Pulmonary: Bilateral basilar airspace opacities. Small right and moderate left pleural effusions. N o evidence of pneumothorax. Osseous structures: Normal Soft tissues: Normal IMPRESSION: Bilateral pleural effusions with bibasilar air space opacities representing atelectasis or pneumonia . RPTAT:AAJJ Physician Jimmie Date Time Electronically viewed and signed by Marbin Mccormack Physician on 07/14/2017 12:13 /
[2017-07-14] MEDS ORDERED: OXYC-481 PO (13:05)
[2017-07-14] MEDS ORDERED: FOLI-49 PO (13:06)
[2017-07-14] MEDS ORDERED: ERGO2000 PO (13:06)
--- NOTE | 2017-07-14 13:19 | ERD ---
ER Documentation Chief Complaint Chief Complaint BIB RA FROM NAUSEA/VOMITING/DIARRHEA , PT ON CHEMO H/O BREAST CA HPI 41-year-old female with a history of metastatic, stage IV breast cancer on chemotherapy presents to the ED by ambulance complaining of generalized body pain, back pain, severe nausea and ongoing non-bloody, non-mucoid diarrhea. No chest pain, shortness of breath or vomiting. No fevers or chills. ROS All systems reviewed and are negative except as per history of present illness. Medications Home Meds Active Scripts Furosemide (Lasix) 20 Mg Tab, 20 MG PO DAILY, #30 TAB 1 Refill Prov:HAYLEY RANDLE 06/05/17 Trazodone Hcl* (Desyrel*) 50 Mg Tab, 25 MG PO HS for 14 Days, #14 TAB Prov:KRIS HAIR MD 06/02/17 Dexamethasone* (Decadron*) 2 Mg Tab, 2 MG PO BID for 30 Days, #60 TAB Prov:KRIS HAIR MD 06/02/17 Sennosides/Docusate Sodium (Senna Plus Tablet) 1 Each Tablet, 1 TAB PO AM for 30 Days, #30 TAB Prov:KRIS HAIR MD 06/02/17 Polyethylene Glycol* (Miralax*) 17 Gm Powd.pack, 17 GM PO DAILY for 30 Days, # 30 DOSE Prov:KRIS HAIR MD 06/02/17 Docusate Sodium (Dok) 100 Mg Capsule, 100 MG PO Q12H Y for CONSTIPATION for 30 Days, #60 CAP Prov:KRIS HAIR MD 06/02/17 Lorazepam* (Lorazepam*) 1 Mg Tablet, 1 MG PO Q6H Y for ANXIETY for 14 Days, #5 TAB Prov:KRIS HAIR MD 06/02/17 Hydromorphone Hcl* (Hydromorphone Hcl*) 4 Mg Tablet, 4 MG PO Q4H Y for PAIN for 14 Days, #60 TAB Prov:KRIS HAIR MD 06/02/17 Reported Medications Folic Acid* (Folic Acid*) 1 Mg Tablet, 1 MG PO DAILY, TAB 07/14/17 Ergocalciferol (Vitamin D2) (VITAMIN D2) 2,000 Unit Tablet, 2000 UNIT PO DAILY, TAB 12/16/17 Oxycodone Hcl* (IR) (Roxicodone*) 5 Mg Tab, 5 MG PO QID Y for PAIN, TAB 07/14/17 Discontinued Scripts Morphine Sulfate* (Ms Contin*) 15 Mg Tablet.sa, 15 MG PO Q12, #60 TAB Prov:HAYLEY RANDLE. 06/05/17 Allergies Allergies: Coded Allergies: amoxicillin (Verified Allergy, Unknown, 07/14/17) PMhx/Soc Reviewed in chart. As per HPI. History of Surgery: No Anesthesia Reaction: No Hx Neurological Disorder: No Hx Respiratory Disorders: Yes (SOB) Hx Cardiac Disorders: No Hx Psychiatric Problems: No Hx Miscellaneous Medical Probl: Yes (CACHEXIA, Breast CA) Hx Alcohol Use: Yes Hx Substance Use: No Hx Tobacco Use: No Smoking Status: Never smoker FmHx No family history relevant to presenting complaint. Physical Exam Vitals Vital Signs Date Time Temp Pulse Resp B/P Pulse Ox O2 Delivery O2 Flow Rate FiO2 07/14/17 16:17 99.0 87 14 99/66 100 Nasal Cannula 2.0 07/14/17 14:10 98.9 80 14 103/63 99 Nasal Cannula 2.0 07/14/17 11:58 98.3 99 16 100/57 100 Room Air 07/14/17 08:57 97.8 102 18 95/53 100 Physical Exam Const: Alert, ill appearing, moderate distress Head: Atraumatic Eyes: Normal Conjunctiva ENT: Normal External Ears, Nose and Mouth. No thrush. Neck: Full range of motion. No JVD Resp: Diminished BS at the bases. No rhonchi or wheezes Cardio: Regular rate and rhythm, no murmurs Chest Wall: Port-o-cath. Nontender. no erythema or induration Abd: Soft, non tender, non distended. Normal bowel sounds Skin: No petechiae or rashes Back: No midline or flank tenderness Ext: No cyanosis, or edema Neur: Awake and alert Psych: Normal Mood and Affect Result Diagram: 07/14/17 1045 07/14/17 1045 Results 24 hrs Laboratory Tests Test 07/14/17 10:45 07/14/17 14:06 07/14/17 14:45 White Blood Count 4.310^3/ul Red Blood Count 4.6210^6/ul Hemoglobin 13.2g/dl Hematocrit 40.2% Mean Corpuscular Volume 87.0fl Mean Corpuscular Hemoglobin 28.6pg Mean Corpuscular Hemoglobin Concent 32.8g/dl Red Cell Distribution Width 19.1% Platelet Count 66137^3/UL Mean Platelet Volume 9.4fl Neutrophils % 86.5% Lymphocytes % 7.2% Monocytes % 3.3% Eosinophils % 0.2% Basophils % 1.2% Nucleated Red Blood Cells % 0.0/100WBC Neutrophils # 3.710^3/ul Lymphocytes # 0.310^3/ul Monocytes # 0.110^3/ul Eosinophils # 0.010^3/ul Basophils # 0.110^3/ul Nucleated Red Blood Cells # 0.010^3/ul Sodium Level 139mmol/L Potassium Level 3.6mmol/L Chloride Level 103mmol/L Carbon Dioxide Level 30mmol/L Anion Gap 10 Blood Urea Nitrogen 16mg/dl Creatinine 0.47mg/dl Glucose Level 144mg/dl Calcium Level 8.5mg/dl Total Bilirubin 0.3mg/dl Direct Bilirubin 0.00mg/dl Indirect Bilirubin 0.3mg/dl Aspartate Amino Transf (AST/SGOT) 54IU/L Alanine Aminotransferase (ALT/SGPT) 75IU/L Alkaline Phosphatase 126IU/L Total Protein 7.7g/dl Albumin 3.8g/dl Globulin 3.90g/dl Albumin/Globulin Ratio 0.97 Lipase 38U/L Urine Color YELLOW Urine Clarity SLIGHTLY CLOUDY Urine pH 5.0 Urine Specific [place] 1.026 Urine Ketones NEGATIVEmg/dL Urine Nitrite NEGATIVEmg/dL Urine Bilirubin NEGATIVEmg/dL Urine Urobilinogen NEGATIVEmg/dL Urine Leukocyte Esterase NEGATIVELeu/ul Urine Microscopic RBC 1/HPF Urine Microscopic WBC 5/HPF Urine Squamous Epithelial Cells FEW/HPF Urine Mucus MODERATE/HPF Urine Hemoglobin NEGATIVEmg/dL Urine Glucose 1+mg/dL Urine Total Protein NEGATIVEmg/dl Prothrombin Time 11.9Sec Prothrombin Time Ratio 0.9 INR International Normalized Ratio 0.87 Activated Partial Thromboplast Time 27.1Sec Current Medications Medications (Trade) Dose Ordered Sig/Jose Cruz Route PRN Reason Start Time Stop Time Status Last Admin Dose Admin Sodium Chloride (NS) 1,000 ml @ 1,000 mls/hr Q1H STAT IV 07/14/17 10:13 07/14/17 11:12 DC 07/14/17 10:46 Hydromorphone HCl (Dilaudid) 1 mg ONCE STAT IV 07/14/17 10:13 07/14/17 10:15 DC 07/14/17 10:45 Ondansetron HCl (Zofran Inj) 4 mg ONCE STAT IV 07/14/17 10:13 07/14/17 10:15 DC 07/14/17 10:45 Hydromorphone HCl (Dilaudid) 0.5 mg ONCE STAT IV 07/14/17 13:52 07/14/17 13:53 DC 07/14/17 14:03 Ondansetron HCl (Zofran Inj) 4 mg BRIDGE ORDER PRN IV NAUSEA AND/OR VOMITING 07/14/17 14:30 07/14/17 15:55 DC Acetaminophen (Tylenol Tab) 650 mg ER BRIDGE PRN PO MILD PAIN/FEVER 07/14/17 14:30 07/15/17 14:29 Dexamethasone (Decadron) 2 mg BID PO 07/14/17 21:00 Docusate Sodium (Colace) 100 mg Q12H PRN PO CONSTIPATION 07/14/17 15:00 Folic Acid (Folic Acid) 1 mg DAILY PO 07/15/17 09:00 Furosemide (Lasix) 20 mg DAILY PO 07/15/17 09:00 Hydromorphone HCl (Dilaudid) 4 mg Q4H PRN PO PAIN 07/14/17 15:00 07/14/17 16:19 Lorazepam (Ativan) 1 mg Q6H PRN PO ANXIETY 07/14/17 15:00 Oxycodone HCl (Roxicodone) 5 mg QID PRN PO PAIN 07/14/17 15:00 Polyethylene Glycol (Miralax) 17 gm DAILY PO 07/15/17 09:00 Trazodone HCl (Desyrel) 25 mg HS PO 07/14/17 21:00 Cholecalciferol (Vitamin D) 2,000 unit DAILY PO 07/15/17 09:00 Levofloxacin (Levaquin) 750 mg DAILY PO 07/14/17 15:00 07/21/17 14:59 07/14/17 17:16 IV Flush (NS 3 ml) 3 ml PER PROTOCOL IV 07/14/17 15:00 Ondansetron HCl (Zofran Tab) 4 mg Q6H PRN PO NAUSEA AND/OR VOMITING 07/14/17 15:00 Ondansetron HCl (Zofran Inj) 4 mg Q6H PRN IV NAUSEA AND/OR VOMITING 07/14/17 15:00 07/14/17 16:24 Metoclopramide HCl (Reglan) 10 mg Q6H PRN IV NAUSEA AND/OR VOMITING 07/14/17 15:00 Acetaminophen (Tylenol Tab) 650 mg Q6H PRN PO PAIN LEVEL 1-3 OR FEVER 07/14/17 15:00 Acetaminophen/ Hydrocodone Bitart ([place] (5/325)) 1 tab Q6H PRN PO MODERATE PAIN LEVEL 4-6 07/14/17 15:00 Enoxaparin Sodium (Lovenox) 40 mg DAILY SC 07/15/17 09:00 LABS: Transaminitis otherwise unremarkable. IMAGING: PROCEDURE: XR Chest. CLINICAL INDICATION: Shortness of breath TECHNIQUE: Single portable view of the chest was obtained. COMPARISON: 05/18/2017 FINDINGS: Cardiac/vascular structures: Obscured cardiomediastinal silhouette. Left port tip just distal to the cavoatrial junction. Pulmonary: Bilateral basilar airspace opacities. Small right and moderate left pleural effusions. No evidence of pneumothorax. Osseous structures: Normal Soft tissues: Normal IMPRESSION: Bilateral pleural effusions with bibasilar air space opacities representing atelectasis or pneumonia. RPTAT:AAJJ Physician Jimmie Date Time Electronically viewed and signed by Physician Jimmie on 07/14/2017 12 :13 MH/ Procedures/MDM DOCUMENTS REVIEWED: ED nurse, prior ED, prior records REEXAMINATION/REEVALUATION: Time:12:30. Abdomen soft nontender. Tolerating PO's. Vomiting or diarrhea Time: 13:40. Worsening pain. Dilaudid 0.5 mg IV. MEDICAL DECISION MAKIN-year-old female with a history of metastatic, stage IV breast cancer on chemotherapy presents to the ED by ambulance complaining of generalized body pain, severe nausea, profuse, watery, nonbloody , nonmucoid diarrhea and mild, crampy, generalized abdominal pain. Abdominal exam is completely benign without significant tenderness, rebound, guarding or signs of peritonitis. An acute intra-abdominal process including but not limited to bowel obstruction, appendicitis, diverticulitis, cholecystitis and metastatic disease is considered however at this time advanced imaging is deferred. Patient able to tolerate PO's. No vomiting or diarrhea while in the ED. Chest x-ray reveals bilateral pleural effusions. No shortness of breath or respiratory failure. Patient with ongoing, diffuse, intractable pain required multiple doses of intravenous Dilaudid for control. Patient will be admitted to Med/Surg for intravenous hydration, pain control, further evaluation and management. Counseled patient regarding diagnosis, diagnostic results and plan for admission. CALLS/CONSULTS: Time 12:50, Dr. Swanson, Recommends for hydration, further evaluation and management. CALLS/CONSULTS: Time 14:00, Dr. Edward. PATIENT CARE TRANSITIONED: Time: 14:05, Dr. Hair. Observation Note: Time: 4 hours Family Hx: No Hypertension Evaluation: Multiple exams showed reveal ongoing pain and will require admission Departure Diagnosis: Primary Impression: Stage IV carcinoma of breast Laterality: unspecified laterality Qualified Code: C50.919 - Carcinoma of breast, stage 4, unspecified laterality Additional Impressions: Diarrhea Diarrhea type: unspecified type Qualified Code: R19.7 - Diarrhea, unspecified type Bilateral pleural effusion Intractable pain Condition: Serious SHANNAN VALDES MD Jul 14, 2017 13:19
[2017-07-14] MEDS ORDERED: HYDROmorphONE 0.5 MG/0.5 ML SYG IV STA (13:52)
[2017-07-14 14:24] LABS: ADD UMIC NO; UR ASCORBIC ACID NEGATIVE (NEGATIVE); UR BILIRUBIN (Dip) NEGATIVE (NEGATIVE); UR BLOOD (Dip) NEGATIVE (NEGATIVE); UR CLARITY SLIGHTLY CLOUDY (CLEAR); UR COLOR YELLOW (YELLOW); UR GLUCOSE (Dip) 1+ mg/dL (NEGATIVE); UR KETONES (Dip) NEGATIVE (NEGATIVE); UR LEUKOCYTE ESTERASE (Dip) NEGATIVE Leu/ul (NEGATIVE); UR MUCUS MODERATE /HPF (NONE SEEN); UR NITRITE (Dip) NEGATIVE (NEGATIVE); UR RBC 1 /HPF (0-5); UR SPECIFIC GRAVITY (Dip) 1.026 (1.003-1.030); UR SQUAMOUS EPITHELIAL CELL FEW /HPF (FEW); UR TOTAL PROTEIN (Dip) NEGATIVE (NEGATIVE); UR UROBILINOGEN (Dip) NEGATIVE (NEGATIVE)
[2017-07-14] MEDS ORDERED: ONDANSETRON 4 MG INJ IV PRN (14:30)
[2017-07-14] MEDS ORDERED: ACETAMINOPHEN 325 MG TAB PO PRN ×2 (14:30→15:00)
--- NOTE | 2017-07-14 14:52 | HP ---
Date/Time of Note Date/Time of Note DATE: 07/14/17 TIME: 14:47 Assessment/Plan VTE Prophylaxis VTE Prophylaxis Intervention: SCD's Assessment/Plan Assessment/Plan 41 yo F with stage 4 breast ca, known hx malignant pleural effusions here with fatigue, myalgias SOB in setting of bl pleural effusions which are most likely malignant in origin PLAN bl thora empiric abx cont home pain meds cont steroids though I have texted her oncologist to see when these can be tapered as pt completed her XRT for spine mets general diet HPI/ROS Admit Date/Time Admit Date/Time Hx of Present Illness CC bodyaches, SOB HPI 41F with recently diagnosed stage 4 breast ca on chemo presents with a few days of backaches, SOB. Had last chemo on . Has been having diarrhea as well , also chills at home PMH/Family/Social Social History lives alone in the community Smoking Status: Never smoker Exam/Review of Systems Vital Signs Vitals Vital Signs Date Time Temp Pulse Resp B/P Pulse Ox O2 Delivery O2 Flow Rate FiO2 07/14/17 11:58 98.3 99 16 100/57 100 Room Air Exam Exam wearning NC +adams facies responds to questions appropriately decreased breath sounds bl half of both lungs abd soft no rashes no edema labs and imaging reviewed, +bl pleural effusions Labs Result Diagram: 07/14/17 1045 07/14/17 1045 KRIS CLAYTON MD Jul 14, 2017 14:52
[2017-07-14] MEDS ORDERED: oxyCODONE 5 MG TAB PO PRN (15:00)
[2017-07-14] MEDS ORDERED: NACL 0.9% 3 ML SYG IV SCH (15:00)
[2017-07-14] MEDS ORDERED: DOCUSATE SODIUM 100 MG CAP PO PRN (15:00)
[2017-07-14] MEDS ORDERED: HYDROCODONE/APAP (5/325) TAB PO PRN (15:00)
[2017-07-14] MEDS ORDERED: ONDANSETRON 4 MG TAB PO PRN (15:00)
[2017-07-14] MEDS: HYDROmorphONE 4 MG TAB PO PRN ×2 (16:19→23:08)
[2017-07-14] MEDS: ONDANSETRON 4 MG INJ IV PRN (16:24)
[2017-07-14 16:52] LABS: INR 0.87; PROTIME 11.9 Sec (11.9-14.9); PT RATIO 0.9
[2017-07-14 16:53] LABS: PARTIAL THROMBOPLASTIN TIME 27.1 Sec (25.0-35.0)
[2017-07-14] MEDS: LEVOFLOXACIN 750 MG TABLET PO SCH ×2 (17:16→23:20)
[2017-07-14] MEDS: LORAZEPAM 1 MG TAB PO PRN (19:27)
[2017-07-14] MEDS: traZODone 50 MG TAB PO SCH (21:00)
[2017-07-14] MEDS: METOCLOPRAMIDE 10 MG INJ IV PRN (23:08)
[2017-07-14] MEDS: DEXAMETHASONE 2 MG TAB PO SCH (23:20)
[2017-07-14 23:21] VITALS: TEMP 98.4
[2017-07-14 23:35] VITALS: BP 93/59; PULSE 101; RESP 16
[2017-07-14 23:49] VITALS: Ht 157.5 cm; Wt 50.6 kg
[2017-07-15] MEDS: traZODone 50 MG TAB PO SCH ×2 (00:30→20:46)
[2017-07-15 02:00] VITALS: BP 92/52; RESP 18
[2017-07-15] MEDS: HYDROmorphONE 4 MG TAB PO PRN (04:05)
[2017-07-15 06:40] LABS: ALBUMIN 3.2 g/dl (3.3-4.9); ALBUMIN/GLOBULIN RATIO 0.94; BILIRUBIN,INDIRECT 0.2 mg/dl (0-1.1); BILIRUBIN,TOTAL 0.2 mg/dl (0.2-1.3); CALCIUM 7.8 mg/dl (8.4-10.2); CREATININE 0.5 mg/dl (0.44-1.00); TOTAL PROTEIN 6.6 g/dl (6.1-8.1)
[2017-07-15] MEDS: POLYETHYLENE GLYCOL 17 GM PACKET PO SCH (09:00)
[2017-07-15] MEDS: DEXAMETHASONE 2 MG TAB PO SCH ×2 (09:10→20:46)
[2017-07-15] MEDS: METOCLOPRAMIDE 10 MG INJ IV PRN ×2 (09:10→21:00)
[2017-07-15] MEDS: CHOLECALCIFEROL 2,000 UNIT CAP PO SCH (09:10)
[2017-07-15] MEDS: FOLIC ACID 1 MG TAB PO SCH (09:10)
[2017-07-15] MEDS: FUROSEMIDE 20 MG TAB PO SCH (09:11)
[2017-07-15 09:12] VITALS: BP 100/65; RESP 18
[2017-07-15] MEDS: ENOXAPARIN 40 MG/0.4 ML SYG SC SCH (09:13)
[2017-07-15] MEDS: HYDROmorphONE 2 MG TAB PO PRN ×3 (10:09→18:34)
--- NOTE | 2017-07-15 12:31 | PN ---
Date/Time of Note Date/Time of Note DATE: 07/15/17 TIME: 12:23 Assessment/Plan VTE Prophylaxis VTE Prophylaxis Intervention: SCD's Lines/Catheters IV Catheter Type (from Nrsg): Saline Lock Assessment/Plan Assessment/Plan 41 yo F with stage 4 breast ca, known hx malignant pleural effusions here with fatigue, myalgias SOB in setting of bl pleural effusions which are most likely malignant in origin and diarrhea, found to have CDiff. PLAN CDiff: PO vanc x 10 days; spore contact isolation aki pending empiric abx for possible CAP inc pain meds cont steroids though I have texted her oncologist 12.16 to see when these can be tapered as pt completed her XRT for spine mets general diet Subjective 24 Hr Interval Summary Free Text/Dictation Requesting more pain meds. aki pending nurse informed me this afternoon stool +CDiff Exam/Review of Systems Vital Signs Vitals Vital Signs Date Time Temp Pulse Resp B/P Pulse Ox O2 Delivery O2 Flow Rate FiO2 07/15/17 09:12 98.9 99 18 100/65 99 07/15/17 07:45 Nasal Cannula 2.0 Intake and Output 07/14/17 07/14/17 07/15/17 15:00 23:00 07:00 Intake Total 360 ml Balance 360 ml Exam nad, wearing NC decreased breath sounds bl inf lungs abd soft no rashes no edema +CDiff Results Result Diagram: 07/14/17 1045 07/15/17 0434 Results 24 hrs Laboratory Tests Test 07/14/17 14:06 07/14/17 14:45 07/15/17 04:34 Urine Color YELLOW Urine Clarity SLIGHTLY CLOUDY A Urine pH 5.0 Urine Specific [place] 1.026 Urine Ketones NEGATIVE Urine Nitrite NEGATIVE Urine Bilirubin NEGATIVE Urine Urobilinogen NEGATIVE Urine Leukocyte Esterase NEGATIVE Urine Microscopic RBC 1 Urine Microscopic WBC 5 Urine Squamous Epithelial Cells FEW Urine Mucus MODERATE Urine Hemoglobin NEGATIVE Urine Glucose 1+ H Urine Total Protein NEGATIVE Prothrombin Time 11.9 Prothrombin Time Ratio 0.9 INR International Normalized Ratio 0.87 Activated Partial Thromboplast Time 27.1 Sodium Level 138 Potassium Level 4.0 Chloride Level 104 Carbon Dioxide Level 28 Anion Gap 10 Blood Urea Nitrogen 15 Creatinine 0.50 Glucose Level 94 # Calcium Level 7.8 L Total Bilirubin 0.2 Direct Bilirubin 0.00 Indirect Bilirubin 0.2 Aspartate Amino Transf (AST/SGOT) 54 H Alanine Aminotransferase (ALT/SGPT) 63 Alkaline Phosphatase 97 Total Protein 6.6 # Albumin 3.2 L Globulin 3.40 H Albumin/Globulin Ratio 0.94 Medications Medications Current Medications Dexamethasone (Decadron) 2 mg BID PO Last administered on 07/15/17 09:10; Admin Dose 2 MG; Start 07/14/17 at 21:00 Docusate Sodium (Colace) 100 mg Q12H PRN PO CONSTIPATION; Start 07/14/17 at 15 :00 Folic Acid (Folic Acid) 1 mg DAILY PO Last administered on 07/15/17 09:10; Admin Dose 1 MG; Start 07/15/17 at 09:00 Furosemide (Lasix) 20 mg DAILY PO Last administered on 07/15/17 09:11; Admin Dose 20 MG; Start 07/15/17 at 09:00 Lorazepam (Ativan) 1 mg Q6H PRN PO ANXIETY Last administered on 07/14/17 19: 27; Admin Dose 1 MG; Start 07/14/17 at 15:00 Oxycodone HCl (Roxicodone) 5 mg QID PRN PO PAIN; Start 07/14/17 at 15:00 Polyethylene Glycol (Miralax) 17 gm DAILY PO ; Start 07/15/17 at 09:00 Trazodone HCl (Desyrel) 25 mg HS PO Last administered on 07/15/17 00:30; Admin Dose 25 MG; Start 07/14/17 at 21:00 Cholecalciferol (Vitamin D) 2,000 unit DAILY PO Last administered on 09:10; Admin Dose 2,000 UNIT; Start 07/15/17 at 09:00 Levofloxacin (Levaquin) 750 mg DAILY PO Last administered on 07/14/17 23:20; Admin Dose 750 MG; Start 07/14/17 at 15:00; Stop 07/21/17 at 14:59 Ondansetron HCl (Zofran Tab) 4 mg Q6H PRN PO NAUSEA AND/OR VOMITING; Start at 15:00 Ondansetron HCl (Zofran Inj) 4 mg Q6H PRN IV NAUSEA AND/OR VOMITING Last administered on 07/14/17 16:24; Admin Dose 4 MG; Start 07/14/17 at 15:00 Metoclopramide HCl (Reglan) 10 mg Q6H PRN IV NAUSEA AND/OR VOMITING Last administered on 07/15/17 09:10; Admin Dose 10 MG; Start 07/14/17 at 15:00 Acetaminophen (Tylenol Tab) 650 mg Q6H PRN PO PAIN LEVEL 1-3 OR FEVER; Start 07/14/17 at 15:00 Acetaminophen/ Hydrocodone Bitart ([place] (5/325)) 1 tab Q6H PRN PO MODERATE PAIN LEVEL 4-6 Last administered on 07/14/17 19:28; Admin Dose 1 TAB; Start 07/14/17 at 15:00 Enoxaparin Sodium (Lovenox) 40 mg DAILY SC Last administered on 07/15/17 09: 13; Admin Dose 40 MG; Start 07/15/17 at 09:00 Hydromorphone HCl (Dilaudid) 4 mg Q4H PRN PO PAIN Last administered on 10:09; Admin Dose 4 MG; Start 07/15/17 at 09:00 Hydromorphone HCl (Dilaudid) 1 mg Q3H PRN IV pain; Start 07/15/17 at 10:00 KRIS CLAYTON MD Jul 15, 2017 12:31
[2017-07-15] MEDS ORDERED: LIDOCAINE 1% (MPF) 5 ML VIAL ONE (13:53)
--- NOTE | 2017-07-15 13:53 | RADRPT ---
PROCEDURE: XR Chest. CLINICAL INDICATION: Shortness of breath. Post right thoracentesis to TECHNIQUE: Inspiratory and expiratory views of the chest were obtained. COMPARISON: 07/14/2017 FINDINGS: Again seen is a left chest wall port. The cardiomediastinal silhouette is obscured. A moderate size left pleural effusion is once again seen with consolidation which may represent compressive atelecta sis and has not changed significantly. The right pleural effusion is decreased in size with a small residual component is noted with probable compressive atelectasis. No radiographic evidence of a pne umothorax is seen. The soft tissues and osseous structures are unremarkable. IMPRESSION: 1. Interval reduction in size of the right pleural effusion with some well residual component. 2. Stable moderate size left pleural effusion. RPTAT: HPNM Physician Estrella Date Time Electronically viewed and signed by Physician Estrella on 07/15/2017 13:53 /
--- NOTE | 2017-07-15 14:13 | RADRPT ---
PROCEDURE: US guided thoracentesis CLINICAL INDICATION: Right pleural effusion. TECHNIQUE: The patient was informed of the benefits and risks of the procedure and signed consent was obtained. Risks include bleeding, infection, pneumothorax. The chest was sterilely prepped a nd draped and local anesthesia with 1% lidocaine was administered. The patient was placed in uprigh t sitting position on bed. Under ultrasound guidance, a 19-gauge Yueh multi side-hole centesis needl e and sheath was advanced into the pleural fluid. Approximately 900 cc of clear yellow pleural flui d was aspirated by vacuum. The patient tolerated procedure well and there were no complications. Piotr howard left department in stable condition. Fluid specimen was given to laboratory for testing to be ordered by referring clinician. Postprocedural chest x-ray to follow. COMPARISON: None FINDINGS: Initial localizing sonogram of the chest shows the pleural effusion. IMPRESSION: US-guided right thoracentesis yielding 900 cc of clear yellow pleural fluid given to laboratory for testing to be ordered by referring clinician. RPTAT: QQ .Braxton Bell MD, Date Time Electronically viewed and signed by .Braxton Bell MD, on 07/15/2017 14:13 .L/
[2017-07-15] MEDS: VANCOMYCIN HCL 250 MG/5ML POSYG PO SCH ×2 (14:29→18:29)
[2017-07-15 14:42] LABS: FLD MN% 79.2 %; FLD PMN% 20.8 %; FLD RBC 1000 /uL; FLD WBC 96 /cmm
[2017-07-15 14:50] LABS: FLUID GLUCOSE 98 mg/dl; FLUID LD 805 U/L; FLUID TOTAL PROTEIN 4.8 g/dl; FLUID TYPE THORACENTESIS FLUID
[2017-07-15 15:25] LABS: FLD CLARITY CLEAR; FLD COLOR YELLOW; FLD TYPE THORACENTHESIS
[2017-07-15 15:40] VITALS: BP 103/67; RESP 18
[2017-07-15] MEDS: LORAZEPAM 1 MG TAB PO PRN ×2 (15:48→23:26)
[2017-07-15 20:15] VITALS: BP 96/61; RESP 20
[2017-07-15] MEDS: HYDROmorphONE 1 MG/ML SYG IV PRN (21:00)
[2017-07-15] MEDS: ONDANSETRON 4 MG INJ IV PRN (23:22)
[2017-07-16] MEDS: VANCOMYCIN HCL 250 MG/5ML POSYG PO SCH ×4 (00:24→18:48)
[2017-07-16] MEDS: HYDROmorphONE 2 MG TAB PO PRN ×4 (00:29→18:48)
[2017-07-16 08:29] VITALS: BP 96/66; RESP 18
[2017-07-16] MEDS: POLYETHYLENE GLYCOL 17 GM PACKET PO SCH (09:00)
[2017-07-16] MEDS: CHOLECALCIFEROL 2,000 UNIT CAP PO SCH (09:22)
[2017-07-16] MEDS: FOLIC ACID 1 MG TAB PO SCH (09:22)
[2017-07-16] MEDS: FUROSEMIDE 20 MG TAB PO SCH (09:23)
[2017-07-16] MEDS: LEVOFLOXACIN 750 MG TABLET PO SCH (09:23)
[2017-07-16] MEDS: DEXAMETHASONE 2 MG TAB PO SCH (09:23)
[2017-07-16] MEDS: HYDROmorphONE 1 MG/ML SYG IV PRN ×2 (09:24→21:17)
[2017-07-16] MEDS: ENOXAPARIN 40 MG/0.4 ML SYG SC SCH (09:26)
[2017-07-16] MEDS ORDERED: LIDOCAINE 1% (MPF) 5 ML VIAL ONE (11:25)
--- NOTE | 2017-07-16 12:15 | RADRPT ---
PROCEDURE: XR Chest 1 View. CLINICAL INDICATION: Status post left thoracentesis. TECHNIQUE: Single view of the chest was obtained. COMPARISON: Yesterday FINDINGS: The cardiomediastinal silhouette is within normal limits. Central pulmonary vascular congestion and interstitial prominence in both lungs is unchanged. Left perihilar and lower lung infiltrates, combi romain with small to moderate pleural effusion are similar to prior exam. No pneumothorax as visualized . Right lower lung infiltrates and small to moderate right pleural effusion are stable. The osseous structures are unchanged. IMPRESSION: No visualized pneumothorax. Stable central pulmonary vascular congestion and mild interstitial prominence in both lungs. Stable left perihilar and lower lung infiltrates, combined with small to moderate pleural effusion Stable right lower lung infiltrates and small to moderate right pleural effusion. RPTAT: AA .Dillan Garcia MD, Date Time Electronically viewed and signed by .Dillan Garcia MD, on 07/16/2017 12:15 .P/
[2017-07-16] MEDS: METOCLOPRAMIDE 10 MG INJ IV PRN (12:30)
[2017-07-16] MEDS: LORAZEPAM 1 MG TAB PO PRN ×2 (14:14→21:24)
--- NOTE | 2017-07-16 14:38 | RADRPT ---
PROCEDURE: US guided left thoracentesis. CLINICAL INDICATION: Shortness of breath. Left pleural effusion. TECHNIQUE: Prior to the procedure, informed consent was obtained. The risks, benefits, and alternatives were e xplained to the patient or the patient's family, including but not limited to bleeding, infection, p ain, visceral or vascular damage, shock, pneumothorax, chest tube placement, air embolism, and . The patient or the patient's family understood the risks and the alternatives and wished to proce ed with the study. Informed written consent was obtained. A procedural pause was performed. The patient's name, date of , and procedure to be performed were verified. Ultrasound of the left hemithorax was performed in the axial and sagittal planes. A left pleural eff usion is noted. Utilizing ultrasound guidance, optimal location for entry to the pleural cavity was ascertained. The overlying skin was prepped and draped in the usual sterile fashion. Approximately 10 ml of 1% Xylocaine was injected locally for pain control. Using ultrasound guidance, a 5-Ser[place] Yueh catheter was introduced into the left pleural space without difficulty. Fluid was aspirated. COMPARISON: Images from ultrasound-guided right thoracentesis dated 07/15/2017 which also included images of the left side of the chest. FINDINGS: Initial ultrasound demonstrates fluid in the left pleural space. Approximately 0.450 liters of sero us fluid was aspirated and discarded. IMPRESSION: 1. Satisfactory ultrasound-guided left thoracentesis. RPTAT: QQ .Chuck Robins MD, Date Time Electronically viewed and signed by .Chuck Robins MD, MD on 07/16/2017 14:38 .R/
--- NOTE | 2017-07-16 14:52 | PN ---
Date/Time of Note Date/Time of Note DATE: 07/16/17 TIME: 14:48 Assessment/Plan VTE Prophylaxis VTE Prophylaxis Intervention: ambulation Lines/Catheters IV [facility]ter Type [facility]from [facility] Urinary Cath still in place: No Assessment/Plan Chief Complaint/Hosp Course 41 yo F with stage 4 breast ca, known hx malignant pleural effusions admitted for evaluation of fatigue, diarrhea, myalgias SOB who was noted with bilateral pleural effusion bl pleural effusions with positive stool studies for C. difficile. 1. Exudative bilateral pleural effusion from malignancy. Status: Acute on chronic -Status post right and left thoracentesis. Patient with clinical improvement in symptoms. -Continue empiric antibiotic for possible CAP 2. C. difficile diarrhea. Status: Acute -on PO vanc x 10 days, spore contact isolation 3. Metastatic breast cancer with compression fractures at C5, T10 and L2 Status: Chronic -Patient had finished radiation treatment -Deferred oncologist regarding steroid therapy duration that patient is receiving. Disposition: Discharge planning in a.m. I have also discussed with patient's oncologist over the phone and as per her, patient can be discharged home with outpatient follow-up. Patient was seen in collaboration with . Problems: Subjective 24 Hr Interval Summary Free Text/Dictation Patient is status post left thoracentesis with 0.450 L fluid removed. Currently she is on 2 L nasal cannula. Exam/Review of Systems Vital Signs Vitals Vital Signs Date Time Temp Pulse Resp B/P Pulse Ox O2 Delivery O2 Flow Rate FiO2 07/16/17 08:29 98.0 96 18 96/66 100 07/16/17 07:40 Nasal Cannula 2.0 Intake and Output 07/15/17 07/15/17 07/16/17 15:00 23:00 07:00 Intake Total 400 ml 550 ml Balance 400 ml 550 ml Exam General: Well developed,adequately built, not in any acute distress . HEENT: Normocephalic, Atraumatic, No laceration or hematoma; Eyes: PEERL, Conjunctiva clear, Anicteric sclera Neck: Supple without any lymphadenopathy, nontender, no JVD, no carotid bruits, trachea midline, no thyromegaly Cardiac: S1, S2 auscultated, regular rhythm and rate, no mumurs or gallop Pulmonary: Diminished breath sound bilaterally. Normal respiratory effort. no adventitious breath sounds GI: Abdomen normal to inspection. Soft, non tender, non- distended, no masses, no rebound tenderness or guarding. Bowel sounds active on all four quadrants Genitourinary: Deferred Extremities: No cyanosis, clubbing, or edema. Pulses [2+] bilaterally. Full ROM on all four extremities. No focal weakness appreciated. Neurologic: Alert to person, place, time, and situation. Affect appropriate, intact sensation. Skin: Clean,dry, and intact. No ecchymosis, no rashes, or lesions Results Result Diagram: 07/14/17 1045 07/15/17 0434 Medications Medications Current Medications Dexamethasone (Decadron) 2 mg BID PO Last administered on 07/16/17 09:23; Admin Dose 2 MG; Start 07/14/17 at 21:00 Docusate Sodium (Colace) 100 mg Q12H PRN PO CONSTIPATION; Start 07/14/17 at 15 :00 Folic Acid (Folic Acid) 1 mg DAILY PO Last administered on 07/16/17 09:22; Admin Dose 1 MG; Start 07/15/17 at 09:00 Furosemide (Lasix) 20 mg DAILY PO Last administered on 07/16/17 09:23; Admin Dose 20 MG; Start 07/15/17 at 09:00 Lorazepam (Ativan) 1 mg Q6H PRN PO ANXIETY Last administered on 07/16/17 14: 14; Admin Dose 1 MG; Start 07/14/17 at 15:00 Oxycodone HCl (Roxicodone) 5 mg QID PRN PO PAIN; Start 07/14/17 at 15:00 Polyethylene Glycol (Miralax) 17 gm DAILY PO ; Start 07/15/17 at 09:00 Trazodone HCl (Desyrel) 25 mg HS PO Last administered on 07/15/17 20:46; Admin Dose 25 MG; Start 07/14/17 at 21:00 Cholecalciferol (Vitamin D) 2,000 unit DAILY PO Last administered on 09:22; Admin Dose 2,000 UNIT; Start 07/15/17 at 09:00 Levofloxacin (Levaquin) 750 mg DAILY PO Last administered on 07/16/17 09:23; Admin Dose 750 MG; Start 07/14/17 at 15:00; Stop 07/21/17 at 14:59 Ondansetron HCl (Zofran Tab) 4 mg Q6H PRN PO NAUSEA AND/OR VOMITING; Start at 15:00 Ondansetron HCl (Zofran Inj) 4 mg Q6H PRN IV NAUSEA AND/OR VOMITING Last administered on 07/15/17 23:22; Admin Dose 4 MG; Start 07/14/17 at 15:00 Metoclopramide HCl (Reglan) 10 mg Q6H PRN IV NAUSEA AND/OR VOMITING Last administered on 07/16/17 12:30; Admin Dose 10 MG; Start 07/14/17 at 15:00 Acetaminophen (Tylenol Tab) 650 mg Q6H PRN PO PAIN LEVEL 1-3 OR FEVER; Start 07/14/17 at 15:00 Acetaminophen/ Hydrocodone Bitart ([place] (5/325)) 1 tab Q6H PRN PO MODERATE PAIN LEVEL 4-6 Last administered on 07/14/17 19:28; Admin Dose 1 TAB; Start 07/14/17 at 15:00 Enoxaparin Sodium (Lovenox) 40 mg DAILY SC Last administered on 07/16/17 09: 26; Admin Dose 40 MG; Start 07/15/17 at 09:00 Hydromorphone HCl (Dilaudid) 4 mg Q4H PRN PO PAIN Last administered on 12:30; Admin Dose 4 MG; Start 07/15/17 at 09:00 Hydromorphone HCl (Dilaudid) 1 mg Q3H PRN IV pain Last administered on 09:24; Admin Dose 1 MG; Start 07/15/17 at 10:00 Vancomycin HCl (Vancomycin Oral Syringe) 125 mg Q6 PO Last administered on 12:29; Admin Dose 125 MG; Start 07/15/17 at 14:00; Stop 07/25/17 at 13 :59 JERZY ASCENCIO NP Jul 16, 2017 14:52
[2017-07-16 15:31] VITALS: BP 109/76; RESP 20
[2017-07-16 20:15] VITALS: BP 91/58; RESP 10
[2017-07-16] MEDS: traZODone 50 MG TAB PO SCH (21:00)
--- NOTE | 2017-07-16 21:02 | CONS ---
Date/Time of Note Date/Time of Note DATE: 07/16/17 TIME: 18:47 Assessment/Plan Assessment/Plan Chief Complaint/Hosp Course Impression: # ER+/ID+/Her2 + metastatic breast cancer -s/p cycle 1 of Taxotere / Herceptin / Perjeta given July 06 -once patient has recovered from her C diff and has been discharged will resume next cycle -given she has stage IV disease, she will need therapy life long #Diarrhea -Pt is Cdiff positive -pt has appropriately been started on po vancomycin -continue to monitor sx #Large Bilateral Pleural Effusions -these are secondary to her metastatic breast cancer -s/p thoracentesis of both lungs -these should stop accumulating as quickly once she starts responding to chemotherapy #Lumbar spine compression fractures -s/p radiation -will decrease dose of Decadron 2mg q day #pneumonia -continue empiric levaquin in case of underlying infection #pain-continue current pain regimen -continue po dilaudid and norco for bone pain Problems: Consultation Date/Type/Reason Admit Date/Time Jul 14 Date of Consultation: Jul 16, 2017 Type of Consultation: oncology Reason for Consultation metastatic breast cancer Referring Provider: KRIS CLAYTON MD Hx of Present Illness 41 yo with a recent diagnosis of metastatic ER+/ID+/Her2+ breast cancer that involves her bones, pleura, liver, left breast and lymph nodes. Pt has since received radiation treatment to her sacrum and started chemotherapy with Taxotere/ Perjeta and Herceptin on July 06. Pt was admitted last Jul 14 with diarrhea, fatigue, and shortness of breath. Pt has since undergone a thoracentesis of her right and left lungs and states her symptoms of shortness of breath have greatly improved. She states her sacral pain has also improved since completing her radiation. Pt currently continues on Decadron 2mg po BID that was started when she started her radiation. Constitutional: improved, poor po, requiring O2 Eyes: no complaints ENT: no complaints Respiratory: shortness of breath Cardiovascular: lightheadedness Gastrointestinal: decreased appetite, diarrhea, nausea Musculoskeletal: back pain, bone/joint pain Psychological: anxiety, depression Past Medical History Medical History: no pertinent history Past Surgical History repeated thoracentesis left breast biopsy Family History Significant Family History: no pertinent family hx Social History Alcohol Use: none Smoking Status: Former smoker Drug Use: none Exam/Review of Systems Vital Signs Vitals Vital Signs Date Time Temp Pulse Resp B/P Pulse Ox O2 Delivery O2 Flow Rate FiO2 07/16/17 15:31 98.2 92 20 109/76 98 07/16/17 07:40 Nasal Cannula 2.0 Intake and Output 07/15/17 07/15/17 07/16/17 15:00 23:00 07:00 Intake Total 400 ml 550 ml Balance 400 ml 550 ml Exam Constitutional: alert, frail Psych: anxiety, depression Head: normocephalic Eyes: nl conjunctiva ENMT: nl external ears & nose Neck: non-tender, supple Respiratory: diminished breath sounds Cardiovascular: regular rate and rhythm Gastrointestinal: soft Musculoskeletal: nl extremities to inspection Results Result Diagram: 07/14/17 1045 07/15/17 0434 Medications Medications Current Medications Dexamethasone (Decadron) 2 mg BID PO Last administered on 07/16/17 09:23; Admin Dose 2 MG; Start 07/14/17 at 21:00 Docusate Sodium (Colace) 100 mg Q12H PRN PO CONSTIPATION; Start 07/14/17 at 15 :00 Folic Acid (Folic Acid) 1 mg DAILY PO Last administered on 07/16/17 09:22; Admin Dose 1 MG; Start 07/15/17 at 09:00 Furosemide (Lasix) 20 mg DAILY PO Last administered on 07/16/17 09:23; Admin Dose 20 MG; Start 07/15/17 at 09:00 Lorazepam (Ativan) 1 mg Q6H PRN PO ANXIETY Last administered on 07/16/17 14: 14; Admin Dose 1 MG; Start 07/14/17 at 15:00 Oxycodone HCl (Roxicodone) 5 mg QID PRN PO PAIN; Start 07/14/17 at 15:00 Polyethylene Glycol (Miralax) 17 gm DAILY PO ; Start 07/15/17 at 09:00 Trazodone HCl (Desyrel) 25 mg HS PO Last administered on 07/15/17 20:46; Admin Dose 25 MG; Start 07/14/17 at 21:00 Cholecalciferol (Vitamin D) 2,000 unit DAILY PO Last administered on 09:22; Admin Dose 2,000 UNIT; Start 07/15/17 at 09:00 Levofloxacin (Levaquin) 750 mg DAILY PO Last administered on 07/16/17 09:23; Admin Dose 750 MG; Start 07/14/17 at 15:00; Stop 07/21/17 at 14:59 Ondansetron HCl (Zofran Tab) 4 mg Q6H PRN PO NAUSEA AND/OR VOMITING; Start at 15:00 Ondansetron HCl (Zofran Inj) 4 mg Q6H PRN IV NAUSEA AND/OR VOMITING Last administered on 07/15/17 23:22; Admin Dose 4 MG; Start 07/14/17 at 15:00 Metoclopramide HCl (Reglan) 10 mg Q6H PRN IV NAUSEA AND/OR VOMITING Last administered on 07/16/17 12:30; Admin Dose 10 MG; Start 07/14/17 at 15:00 Acetaminophen (Tylenol Tab) 650 mg Q6H PRN PO PAIN LEVEL 1-3 OR FEVER; Start 07/14/17 at 15:00 Acetaminophen/ Hydrocodone Bitart ([place] (5/325)) 1 tab Q6H PRN PO MODERATE PAIN LEVEL 4-6 Last administered on 07/14/17 19:28; Admin Dose 1 TAB; Start 07/14/17 at 15:00 Enoxaparin Sodium (Lovenox) 40 mg DAILY SC Last administered on 07/16/17 09: 26; Admin Dose 40 MG; Start 07/15/17 at 09:00 Hydromorphone HCl (Dilaudid) 4 mg Q4H PRN PO PAIN Last administered on 12:30; Admin Dose 4 MG; Start 07/15/17 at 09:00 Hydromorphone HCl (Dilaudid) 1 mg Q3H PRN IV pain Last administered on 09:24; Admin Dose 1 MG; Start 07/15/17 at 10:00 Vancomycin HCl (Vancomycin Oral Syringe) 125 mg Q6 PO Last administered on 12:29; Admin Dose 125 MG; Start 07/15/17 at 14:00; Stop 07/25/17 at 13 :59 CHARLOTTE DÍAZ M.D. Jul 16, 2017 20:47
[2017-07-16] MEDS: ONDANSETRON 4 MG INJ IV PRN (21:16)
[2017-07-17] MEDS: VANCOMYCIN HCL 250 MG/5ML POSYG PO SCH ×4 (00:02→18:35)
[2017-07-17] MEDS: METOCLOPRAMIDE 10 MG INJ IV PRN ×2 (00:05→22:26)
[2017-07-17] MEDS: HYDROmorphONE 1 MG/ML SYG IV PRN ×7 (01:50→22:29)
[2017-07-17 02:19] VITALS: BP 90/58; RESP 20
[2017-07-17 05:45] LABS: ABNORMAL IP MESSAGE 1; BASOPHILS % 0.8 % (0.0-2.0); EOSINOPHILS % 0.3 % (0.0-7.0); HEMATOCRIT 38.2 % (37.0-47.0); HEMOGLOBIN 12.5 g/dl (12.0-16.0); LYMPHOCYTES # 0.6 10^3/ul (0.8-2.9); LYMPHOCYTES % 14.8 % (15.0-51.0); MEAN CORPUSCULAR HEMOGLOBIN 28.4 pg (29.0-33.0); MEAN CORPUSCULAR HGB CONC 32.7 g/dl (32.0-37.0); MEAN CORPUSCULAR VOLUME 86.8 fl (82.0-101.0); MEAN PLATELET VOLUME 9.2 fl (7.4-10.4); MONOCYTE # 0.7 10^3/ul (0.3-0.9); MONOCYTES % 18.7 % (0.0-11.0); NEUTROPHIL # 2.4 10^3/ul (1.6-7.5); NEUTROPHILS % 62.8 % (39.0-77.0); PLATELET COUNT 434 10^3/UL (140-415); RED CELL DISTRIBUTION WIDTH 18.5 % (11.5-14.5); WHITE BLOOD COUNT 3.8 10^3/ul (4.8-10.8)
[2017-07-17 05:49] LABS: POSITIVE DIFF @See below
[2017-07-17] MEDS: ONDANSETRON 4 MG INJ IV PRN ×2 (06:02→18:35)
[2017-07-17 06:09] LABS: CALCIUM 8.4 mg/dl (8.4-10.2); CREATININE 0.5 mg/dl (0.44-1.00); POTASSIUM 3.3 mmol/L (3.5-5.1)
[2017-07-17 08:10] VITALS: BP 92/55; RESP 18
[2017-07-17] MEDS: FOLIC ACID 1 MG TAB PO SCH (08:23)
[2017-07-17] MEDS: CHOLECALCIFEROL 2,000 UNIT CAP PO SCH (08:24)
[2017-07-17] MEDS: DEXAMETHASONE 2 MG TAB PO SCH (08:24)
[2017-07-17] MEDS: HYDROmorphONE 2 MG TAB PO PRN (08:25)
[2017-07-17] MEDS: LEVOFLOXACIN 750 MG TABLET PO SCH (08:25)
[2017-07-17] MEDS: FUROSEMIDE 20 MG TAB PO SCH (08:26)
--- NOTE | 2017-07-17 08:42 | PDOCDIS ---
Discharge Instructions CONDITION Patient Condition: Stable HOME CARE INSTRUCTIONS: Diet Instructions: Regular FOLLOW UP/APPOINTMENTS Follow-up Plan 1.Follow up with (Oncologist) in 1 week 2. Follow-up with primary care physician in 1 week If you don't have one please let someone know, we can give you resources that may help you pick one. You may also call your insurance company to assign one to you. Review your medication list with your nurse before leaving and if you need new prescriptions please let your nurse know. I may have made changes to your home medications or given you new prescriptions, please let your primary doctor know as well. Stay compliant with your medications and report any side effects to your PCP or pharmacist. Return to the ER if you have any concerns and cannot reach your doctors or call your insurance company, they usually have a nurse that can help you. 3. Call 911 or go to the nearest emergency room if experiencing loss of consciousness, dizziness, chest pain, shortness of breath, vomiting/abdominal pain, speech difficulties, motor weakness or any unusual symptoms. OTHER ORDERS: HAND WASHING TO PREVENT SPREAD OF INFECTION Wet your hands with clean, running water (warm or cold), turn off the tap, and apply soap. Lather your hands by rubbing them together with the soap. Be sure to lather the backs of your hands, between your fingers, and under your nails. Scrub your hands for at least 20 seconds.Rinse your hands well under clean, running water. Dry your hands using a clean towel or air dry them, and use a paper towel to turn off the faucet, and then throw it away. JERZY ASCENCIO NP Jul 17, 2017 08:42
[2017-07-17] MEDS ORDERED: LEVO750T25 PO (08:45)
[2017-07-17] MEDS ORDERED: Vancomycin Oral Syringe PO (08:45)
[2017-07-17] MEDS: POLYETHYLENE GLYCOL 17 GM PACKET PO SCH (09:00)
[2017-07-17] MEDS: ENOXAPARIN 40 MG/0.4 ML SYG SC SCH (09:01)
[2017-07-17] MEDS ORDERED: DEC2 PO (10:50)
--- NOTE | 2017-07-17 10:57 | DS ---
Date/Time of Note Date/Time of Note DATE: 07/17/17 TIME: 10:54 Discharge Summary Admission/Discharge Info Admit Date/Time Jul 14, 2017 at 14:22 Discharge Date/Time Discharge Diagnosis 1. Exudative bilateral pleural effusion from malignancy. -Status post right and left thoracentesis. 2. C. difficile diarrhea. Resolved. On PO vanc x 10 days 3. Metastatic breast cancer with compression fractures at C5, T10 and L2 Patient Condition: Stable Consults , oncologist Procedures 07/15/2017. US-guided right thoracentesis yielding 900 cc of clear yellow pleural fluid 07/16/2017. Satisfactory ultrasound-guided left thoracentesis with Approximately 0.450 liters of serous fluid Hospital Course This is a 41 yo F with stage 4 breast ca, known hx malignant pleural effusions admitted for evaluation of fatigue, diarrhea, myalgias SOB who was noted with bilateral pleural effusion bl pleural effusions with positive stool studies for C. difficile. Patient had undergone bilateral thoracentesis for underlying exudative bilateral pleural effusion or malignancy. She tolerated procedure well. Patient did not have any further symptoms. Patient was treated with p.o. vancomycin to cover C. difficile. Diarrhea resolved. Patient was continued on her home regimen for underlying metastatic breast cancer treatment. Patient was also evaluated by her outpatient oncologist in-house. In regards to compression fractures, as patient finished her radiation treatment, recommendation was to decrease the Decadron dose to daily. As per oncology recommendation, there was no need for Pleurx catheter for recurrent pleural effusion as this will stop accumulating as quickly once patient starts responding to chemotherapy. At this time, patient is feeling back to her baseline. She is ready for outpatient follow-up with her oncologist. Approximately 60 minutes was spent in coordinating the discharge on this patient. Patient was seen in collaboration with . Home Meds Active Scripts Dexamethasone* (Decadron*) 2 Mg Tab, 2 MG PO DAILY, #30 TAB Prov:JERZY ASCENCIO V. [employer]MED GUARD 07/17/17 [Vancomycin Oral Syringe] 50 MG/ML SOLN No Conflict Check, 125 MG PO Q6 for 8 Days, #32 DOSE LAST DOSE 07/25/2017 Prov:ASCENCIO,JERZY V. [employer]MED GUARD 07/17/17 Levofloxacin* (Levaquin*) 750 Mg Tablet, 750 MG PO DAILY for 4 Days, #4 TAB STOP DATE 07/21/2017 Prov:JERZY ASCENCIO Stephanie [employer]ARD 07/17/17 Furosemide (Lasix) 20 Mg Tab, 20 MG PO DAILY, #30 TAB 1 Refill Prov:HAYLEY RANDLE 06/05/17 Trazodone Hcl* (Desyrel*) 50 Mg Tab, 25 MG PO HS for 14 Days, #14 TAB Prov:KRIS CLAYTON MD 06/02/17 Dexamethasone* (Decadron*) 2 Mg Tab, 2 MG PO BID for 30 Days, #60 TAB Prov:KRIS CLAYTON MD 06/02/17 Sennosides/Docusate Sodium (Senna Plus Tablet) 1 Each Tablet, 1 TAB PO AM for 30 Days, #30 TAB Prov:KRIS CLAYTON MD 06/02/17 Polyethylene Glycol* (Miralax*) 17 Gm Powd.pack, 17 GM PO DAILY for 30 Days, # 30 DOSE Prov:KRIS CLAYTON MD 06/02/17 Docusate Sodium (Dok) 100 Mg Capsule, 100 MG PO Q12H Y for CONSTIPATION for 30 Days, #60 CAP Prov:KRIS CLAYTON MD 06/02/17 Lorazepam* (Lorazepam*) 1 Mg Tablet, 1 MG PO Q6H Y for ANXIETY for 14 Days, #5 TAB Prov:KRIS CLAYTON MD 06/02/17 Hydromorphone Hcl* (Hydromorphone Hcl*) 4 Mg Tablet, 4 MG PO Q4H Y for PAIN for 14 Days, #60 TAB Prov:KRIS CLAYTON MD 06/02/17 Reported Medications Folic Acid* (Folic Acid*) 1 Mg Tablet, 1 MG PO DAILY, TAB 07/14/17 Ergocalciferol (Vitamin D2) (VITAMIN D2) 2,000 Unit Tablet, 2000 UNIT PO DAILY, TAB 07/14/17 Oxycodone Hcl* (IR) (Roxicodone*) 5 Mg Tab, 5 MG PO QID Y for PAIN, TAB 07/14/17 Discontinued Scripts Morphine Sulfate* (Ms Contin*) 15 Mg Tablet.sa, 15 MG PO Q12, #60 TAB Prov:HAYLEY RANDLE 06/05/17 Follow-up Plan 1.Follow up with (Oncologist) in 1 week 2. Follow-up with primary care physician in 1 week If you don't have one please let someone know, we can give you resources that may help you pick one. You may also call your insurance company to assign one to you. Review your medication list with your nurse before leaving and if you need new prescriptions please let your nurse know. I may have made changes to your home medications or given you new prescriptions, please let your primary doctor know as well. Stay compliant with your medications and report any side effects to your PCP or pharmacist. Return to the ER if you have any concerns and cannot reach your doctors or call your insurance company, they usually have a nurse that can help you. 3. Call 911 or go to the nearest emergency room if experiencing loss of consciousness, dizziness, chest pain, shortness of breath, vomiting/abdominal pain, speech difficulties, motor weakness or any unusual symptoms. OTHER ORDERS: HAND WASHING TO PREVENT SPREAD OF INFECTION Wet your hands with clean, running water (warm or cold), turn off the tap, and apply soap. Lather your hands by rubbing them together with the soap. Be sure to lather the backs of your hands, between your fingers, and under your nails. Scrub your hands for at least 20 seconds.Rinse your hands well under clean, running water. Dry your hands using a clean towel or air dry them, and use a paper towel to turn off the faucet, and then throw it away. Primary Care Provider Care Physician No Primary Pending Labs Laboratory Tests Test 07/17/17 04:45 07/17/17 10:32 White Blood Count 3.810^3/ul (4.8-10.8) Red Blood Count 4.4010^6/ul (4.20-5.40) Hemoglobin 12.5g/dl (12.0-16.0) Hematocrit 38.2% (37.0-47.0) Mean Corpuscular Volume 86.8fl (82.0-101.0) Mean Corpuscular Hemoglobin 28.4pg (29.0-33.0) Mean Corpuscular Hemoglobin Concent 32.7g/dl (32.0-37.0) Red Cell Distribution Width 18.5% (11.5-14.5) Platelet Count 63782^3/UL (140-415) Mean Platelet Volume 9.2fl (7.4-10.4) Neutrophils % 62.8% (39.0-77.0) Lymphocytes % 14.8% (15.0-51.0) Monocytes % 18.7% (0.0-11.0) Eosinophils % 0.3% (0.0-7.0) Basophils % 0.8% (0.0-2.0) Nucleated Red Blood Cells % 0.0/100WBC (0.0-0.0) Neutrophils # 2.410^3/ul (1.6-7.5) Lymphocytes # 0.610^3/ul (0.8-2.9) Monocytes # 0.710^3/ul (0.3-0.9) Eosinophils # 0.010^3/ul (0.0-0.5) Basophils # 0.010^3/ul (0.0-0.1) Nucleated Red Blood Cells # 0.010^3/ul (0.0-0.0) Sodium Level 135mmol/L (135-144) Potassium Level 3.3mmol/L (3.5-5.1) Chloride Level 100mmol/L (97-110) Carbon Dioxide Level 29mmol/L (21-31) Anion Gap 9 (8-16) Blood Urea Nitrogen 14mg/dl (7-20) Creatinine 0.50mg/dl (0.44-1.00) Glucose Level 92mg/dl (70-220) Calcium Level 8.4mg/dl (8.4-10.2) Lab Scanned Report REFERENCE [id number] JERZY ASCENCIO NP Jul 17, 2017 10:57
--- NOTE | 2017-07-17 13:33 | CONS ---
Date/Time of Note Date/Time of Note DATE: 07/17/17 TIME: 13:31 Assessment/Plan Assessment/Plan Chief Complaint/Hosp Course Impression: # ER+/KS+/Her2 + metastatic breast cancer -s/p cycle 1 of Taxotere / Herceptin / Perjeta given July 06 -once patient has recovered from her C diff and has been discharged will resume next cycle -given she has stage IV disease, she will need therapy life long #Diarrhea -Pt is Cdiff positive -pt ok for discharge as long as she can get po vancomycin at home #Large Bilateral Pleural Effusions -these are secondary to her metastatic breast cancer -s/p thoracentesis of both lungs -these should stop accumulating as quickly once she starts responding to chemotherapy #Lumbar spine compression fractures -s/p radiation -will decrease dose of Decadron 2mg q day #pneumonia -continue empiric levaquin in case of underlying infection #pain-continue current pain regimen -continue po dilaudid and norco for bone pain Problems: Consultation Date/Type/Reason Admit Date/Time Jul 14, 2017 at 14:22 Initial Consult Date 07/16/17 Type of Consultation: oncology Reason for Consultation metastatic breast cancer Referring Provider: KRIS CLAYTON MD 24 HR Interval Summary Free Text/Dictation diarrhea has improved Exam/Review of Systems Vital Signs Vitals Vital Signs Date Time Temp Pulse Resp B/P Pulse Ox O2 Delivery O2 Flow Rate FiO2 07/17/17 08:10 97.8 105 18 92/55 100 07/17/17 08:00 Nasal Cannula 2.0 Intake and Output 07/16/17 07/16/17 07/17/17 15:00 23:00 07:00 Intake Total 500 ml 720 ml Balance 500 ml 720 ml Exam Constitutional: alert, oriented Psych: anxiety, depression, no complaints Head: normocephalic ENMT: nl external ears & nose Neck: non-tender, supple Respiratory: diminished breath sounds Cardiovascular: regular rate and rhythm Gastrointestinal: soft Musculoskeletal: nl extremities to inspection, nl gait and stance Results Result Diagram: 07/17/17 0445 07/17/17 0445 Results 24 hrs Laboratory Tests Test 07/17/17 04:45 07/17/17 10:32 White Blood Count 3.8 L Red Blood Count 4.40 Hemoglobin 12.5 Hematocrit 38.2 Mean Corpuscular Volume 86.8 Mean Corpuscular Hemoglobin 28.4 L Mean Corpuscular Hemoglobin Concent 32.7 Red Cell Distribution Width 18.5 H Platelet Count 434 H Mean Platelet Volume 9.2 Neutrophils % 62.8 Lymphocytes % 14.8 L Monocytes % 18.7 H Eosinophils % 0.3 Basophils % 0.8 Nucleated Red Blood Cells % 0.0 Neutrophils # 2.4 Lymphocytes # 0.6 L Monocytes # 0.7 Eosinophils # 0.0 Basophils # 0.0 Nucleated Red Blood Cells # 0.0 Sodium Level 135 Potassium Level 3.3 L Chloride Level 100 Carbon Dioxide Level 29 Anion Gap 9 Blood Urea Nitrogen 14 Creatinine 0.50 Glucose Level 92 Calcium Level 8.4 Lab Scanned Report REFERENCE LAB Medications Medications Current Medications Docusate Sodium (Colace) 100 mg Q12H PRN PO CONSTIPATION; Start 07/14/17 at 15 :00 Folic Acid (Folic Acid) 1 mg DAILY PO Last administered on 07/17/17 08:23; Admin Dose 1 MG; Start 07/15/17 at 09:00 Furosemide (Lasix) 20 mg DAILY PO Last administered on 07/16/17 09:23; Admin Dose 20 MG; Start 07/15/17 at 09:00 Lorazepam (Ativan) 1 mg Q6H PRN PO ANXIETY Last administered on 07/16/17 21: 24; Admin Dose 1 MG; Start 07/14/17 at 15:00 Oxycodone HCl (Roxicodone) 5 mg QID PRN PO PAIN; Start 07/14/17 at 15:00 Polyethylene Glycol (Miralax) 17 gm DAILY PO ; Start 07/15/17 at 09:00 Trazodone HCl (Desyrel) 25 mg HS PO Last administered on 07/15/17 20:46; Admin Dose 25 MG; Start 07/14/17 at 21:00 Cholecalciferol (Vitamin D) 2,000 unit DAILY PO Last administered on 08:24; Admin Dose 2,000 UNIT; Start 07/15/17 at 09:00 Levofloxacin (Levaquin) 750 mg DAILY PO Last administered on 07/17/17 08:25; Admin Dose 750 MG; Start 07/14/17 at 15:00; Stop 07/21/17 at 14:59 Ondansetron HCl (Zofran Tab) 4 mg Q6H PRN PO NAUSEA AND/OR VOMITING; Start at 15:00 Ondansetron HCl (Zofran Inj) 4 mg Q6H PRN IV NAUSEA AND/OR VOMITING Last administered on 07/17/17 06:02; Admin Dose 4 MG; Start 07/14/17 at 15:00 Metoclopramide HCl (Reglan) 10 mg Q6H PRN IV NAUSEA AND/OR VOMITING Last administered on 07/17/17 00:05; Admin Dose 10 MG; Start 07/14/17 at 15:00 Acetaminophen (Tylenol Tab) 650 mg Q6H PRN PO PAIN LEVEL 1-3 OR FEVER; Start 07/14/17 at 15:00 Acetaminophen/ Hydrocodone Bitart ([place] (5/325)) 1 tab Q6H PRN PO MODERATE PAIN LEVEL 4-6 Last administered on 07/14/17 19:28; Admin Dose 1 TAB; Start 07/14/17 at 15:00 Enoxaparin Sodium (Lovenox) 40 mg DAILY SC Last administered on 07/17/17 09: 01; Admin Dose 40 MG; Start 07/15/17 at 09:00 Hydromorphone HCl (Dilaudid) 4 mg Q4H PRN PO PAIN Last administered on 08:25; Admin Dose 4 MG; Start 07/15/17 at 09:00 Hydromorphone HCl (Dilaudid) 1 mg Q3H PRN IV pain Last administered on 12:43; Admin Dose 1 MG; Start 07/15/17 at 10:00 Vancomycin HCl (Vancomycin Oral Syringe) 125 mg Q6 PO Last administered on 12:43; Admin Dose 125 MG; Start 07/15/17 at 14:00; Stop 07/25/17 at 13 :59 Dexamethasone (Decadron) 2 mg DAILY PO Last administered on 07/17/17 08:24; Admin Dose 2 MG; Start 07/17/17 at 09:00 CHARLOTTE DÍAZ M.D. Jul 17, 2017 13:33
[2017-07-17 14:00] VITALS: BP 90/60; RESP 18
[2017-07-17] MEDS: LORAZEPAM 1 MG TAB PO PRN (14:59)
--- NOTE | 2017-07-17 15:57 | PN ---
Date/Time of Note Date/Time of Note DATE: 07/17/17 TIME: 15:46 Assessment/Plan VTE Prophylaxis VTE Prophylaxis Intervention: ambulation Lines/Catheters IV Catheter Type (from [facility]): Peripheral IV Urinary Cath still in place: No Assessment/Plan Chief Complaint/Hosp Course 41 yo F with stage 4 breast ca, known hx malignant pleural effusions admitted for evaluation of fatigue, diarrhea, myalgias SOB who was noted with bilateral pleural effusion bl pleural effusions with positive stool studies for C. difficile. 1. Exudative bilateral pleural effusion from malignancy. Status: Acute on chronic -Status post right and left thoracentesis. Patient with clinical improvement in symptoms. -Continue empiric antibiotic for possible CAP 2. C. difficile diarrhea. Status: Acute -on PO vanc x 10 days, spore contact isolation 3. Metastatic breast cancer with compression fractures at C5, T10 and L2 Status: Chronic -Patient had finished radiation treatment -Deferred oncologist regarding steroid therapy duration that patient is receiving. Disposition: Patient is medically stable for discharge with outpatient oncology follow-up. However, patient needs continuation of oral vancomycin which needs authorization from insurance prior to discharge. Patient was seen in collaboration with . Problems: Subjective 24 Hr Interval Summary Free Text/Dictation No acute distress. Exam/Review of Systems Vital Signs Vitals Vital Signs Date Time Temp Pulse Resp B/P Pulse Ox O2 Delivery O2 Flow Rate FiO2 07/17/17 08:10 97.8 105 18 92/55 100 07/17/17 08:00 Nasal Cannula 2.0 Intake and Output 07/16/17 07/16/17 07/17/17 15:00 23:00 07:00 Intake Total 500 ml 720 ml Balance 500 ml 720 ml Exam General: Well developed,adequately built, not in any acute distress . HEENT: Normocephalic, Atraumatic, No laceration or hematoma; Eyes: PEERL, Conjunctiva clear, Anicteric sclera Neck: Supple without any lymphadenopathy, nontender, no JVD, no carotid bruits, trachea midline, no thyromegaly Cardiac: S1, S2 auscultated, regular rhythm and rate, no mumurs or gallop Pulmonary: Diminished breath sound bilaterally. Normal respiratory effort. no adventitious breath sounds GI: Abdomen normal to inspection. Soft, non tender, non- distended, no masses, no rebound tenderness or guarding. Bowel sounds active on all four quadrants Genitourinary: Deferred Extremities: No cyanosis, clubbing, or edema. Pulses [2+] bilaterally. Full ROM on all four extremities. No focal weakness appreciated. Neurologic: Alert to person, place, time, and situation. Affect appropriate, intact sensation. Skin: Clean,dry, and intact. No ecchymosis, no rashes, or lesions Results Result Diagram: 07/17/17 0445 07/17/17 0445 Results 24 hrs Laboratory Tests Test 07/17/17 04:45 07/17/17 10:32 White Blood Count 3.8 L Red Blood Count 4.40 Hemoglobin 12.5 Hematocrit 38.2 Mean Corpuscular Volume 86.8 Mean Corpuscular Hemoglobin 28.4 L Mean Corpuscular Hemoglobin Concent 32.7 Red Cell Distribution Width 18.5 H Platelet Count 434 H Mean Platelet Volume 9.2 Neutrophils % 62.8 Lymphocytes % 14.8 L Monocytes % 18.7 H Eosinophils % 0.3 Basophils % 0.8 Nucleated Red Blood Cells % 0.0 Neutrophils # 2.4 Lymphocytes # 0.6 L Monocytes # 0.7 Eosinophils # 0.0 Basophils # 0.0 Nucleated Red Blood Cells # 0.0 Sodium Level 135 Potassium Level 3.3 L Chloride Level 100 Carbon Dioxide Level 29 Anion Gap 9 Blood Urea Nitrogen 14 Creatinine 0.50 Glucose Level 92 Calcium Level 8.4 Lab Scanned Report REFERENCE LAB Medications Medications Current Medications Docusate Sodium (Colace) 100 mg Q12H PRN PO CONSTIPATION; Start 07/14/17 at 15 :00 Folic Acid (Folic Acid) 1 mg DAILY PO Last administered on 07/17/17 08:23; Admin Dose 1 MG; Start 07/15/17 at 09:00 Furosemide (Lasix) 20 mg DAILY PO Last administered on 07/16/17 09:23; Admin Dose 20 MG; Start 07/15/17 at 09:00 Lorazepam (Ativan) 1 mg Q6H PRN PO ANXIETY Last administered on 07/17/17 14: 59; Admin Dose 1 MG; Start 07/14/17 at 15:00 Oxycodone HCl (Roxicodone) 5 mg QID PRN PO PAIN; Start 07/14/17 at 15:00 Polyethylene Glycol (Miralax) 17 gm DAILY PO ; Start 07/15/17 at 09:00 Trazodone HCl (Desyrel) 25 mg HS PO Last administered on 07/15/17 20:46; Admin Dose 25 MG; Start 07/14/17 at 21:00 Cholecalciferol (Vitamin D) 2,000 unit DAILY PO Last administered on 08:24; Admin Dose 2,000 UNIT; Start 07/15/17 at 09:00 Levofloxacin (Levaquin) 750 mg DAILY PO Last administered on 07/17/17 08:25; Admin Dose 750 MG; Start 07/14/17 at 15:00; Stop 07/21/17 at 14:59 Ondansetron HCl (Zofran Tab) 4 mg Q6H PRN PO NAUSEA AND/OR VOMITING; Start at 15:00 Ondansetron HCl (Zofran Inj) 4 mg Q6H PRN IV NAUSEA AND/OR VOMITING Last administered on 07/17/17 06:02; Admin Dose 4 MG; Start 07/14/17 at 15:00 Metoclopramide HCl (Reglan) 10 mg Q6H PRN IV NAUSEA AND/OR VOMITING Last administered on 07/17/17 00:05; Admin Dose 10 MG; Start 07/14/17 at 15:00 Acetaminophen (Tylenol Tab) 650 mg Q6H PRN PO PAIN LEVEL 1-3 OR FEVER; Start 07/14/17 at 15:00 Acetaminophen/ Hydrocodone Bitart ([place] (5/325)) 1 tab Q6H PRN PO MODERATE PAIN LEVEL 4-6 Last administered on 07/14/17 19:28; Admin Dose 1 TAB; Start 07/14/17 at 15:00 Enoxaparin Sodium (Lovenox) 40 mg DAILY SC Last administered on 07/17/17 09: 01; Admin Dose 40 MG; Start 07/15/17 at 09:00 Hydromorphone HCl (Dilaudid) 4 mg Q4H PRN PO PAIN Last administered on 08:25; Admin Dose 4 MG; Start 07/15/17 at 09:00 Hydromorphone HCl (Dilaudid) 1 mg Q3H PRN IV pain Last administered on 12:43; Admin Dose 1 MG; Start 07/15/17 at 10:00 Vancomycin HCl (Vancomycin Oral Syringe) 125 mg Q6 PO Last administered on 12:43; Admin Dose 125 MG; Start 07/15/17 at 14:00; Stop 07/25/17 at 13 :59 Dexamethasone (Decadron) 2 mg DAILY PO Last administered on 07/17/17 08:24; Admin Dose 2 MG; Start 07/17/17 at 09:00 JERZY ASCENCIO NP Jul 17, 2017 15:56
[2017-07-17] MEDS ORDERED: METR500T14 PO (18:20)
[2017-07-17 20:20] VITALS: BP 96/60; RESP 18
[2017-07-17] MEDS: traZODone 50 MG TAB PO SCH (21:28)
[2017-07-18] MEDS: VANCOMYCIN HCL 250 MG/5ML POSYG PO SCH ×3 (00:25→11:25)
[2017-07-18] MEDS: ONDANSETRON 4 MG INJ IV PRN (01:49)
[2017-07-18] MEDS: HYDROmorphONE 1 MG/ML SYG IV PRN ×5 (01:49→16:07)
[2017-07-18 02:26] VITALS: BP 91/59; RESP 20
[2017-07-18] MEDS: POLYETHYLENE GLYCOL 17 GM PACKET PO SCH (07:42)
[2017-07-18 08:00] VITALS: BP 93/57; RESP 18
[2017-07-18] MEDS: LEVOFLOXACIN 750 MG TABLET PO SCH (08:45)
[2017-07-18] MEDS: CHOLECALCIFEROL 2,000 UNIT CAP PO SCH (08:45)
[2017-07-18] MEDS: FOLIC ACID 1 MG TAB PO SCH (08:45)
[2017-07-18] MEDS: DEXAMETHASONE 2 MG TAB PO SCH (08:45)
[2017-07-18] MEDS: FUROSEMIDE 20 MG TAB PO SCH (09:00)
[2017-07-18] MEDS: ENOXAPARIN 40 MG/0.4 ML SYG SC SCH (09:06)
--- NOTE | 2017-07-18 11:34 | DS ---
Date/Time of Note Date/Time of Note DATE: 07/18/17 TIME: 11:31 Discharge Summary Admission/Discharge Info Admit Date/Time Jul 14, 2017 at 14:22 Discharge Date/Time Discharge Diagnosis 1. Exudative bilateral pleural effusion from malignancy. -Status post right and left thoracentesis. 2. C. difficile diarrhea. Resolved. in treatment with Flagyl. 3. Metastatic breast cancer with compression fractures at C5, T10 and L2 Patient Condition: Stable Consults ,Oncology Procedures 07/15/2017. US-guided right thoracentesis yielding 900 cc of clear yellow pleural fluid 07/16/2017. Satisfactory ultrasound-guided left thoracentesis with Approximately 0.450 liters of serous fluid Hospital Course This is a 41 yo F with stage 4 breast ca, known hx malignant pleural effusions admitted for evaluation of fatigue, diarrhea, myalgias SOB who was noted with bilateral pleural effusion bl pleural effusions with positive stool studies for C. difficile. Patient had undergone bilateral thoracentesis for underlying exudative bilateral pleural effusion or malignancy. She tolerated procedure well. Patient did not have any further symptoms. Patient was treated with p.o. vancomycin to cover C. difficile. Diarrhea resolved. Patient was continued on her home regimen for underlying metastatic breast cancer treatment. Patient was also evaluated by her outpatient oncologist in-house. In regards to compression fractures, as patient finished her radiation treatment, recommendation was to decrease the Decadron dose to daily. As per oncology recommendation, there was no need for Pleurx catheter for recurrent pleural effusion as this will stop accumulating as quickly once patient starts responding to chemotherapy. At this time, patient is feeling back to her baseline. She is ready for outpatient follow-up with her oncologist. Patient was switched to oral Flagyl for C. difficile coverage on discharge. Approximately 60 minutes was spent in coordinating the discharge on this patient. Patient was seen in collaboration with . Home Meds Active Scripts Dexamethasone* (Decadron*) 2 Mg Tab, 2 MG PO DAILY, #30 TAB Prov:JERZY ASCENCIO V. NEGATIVE STRIPPER 07/17/17 [Vancomycin Oral Syringe] 50 MG/ML SOLN No Conflict Check, 125 MG PO Q6 for 8 Days, #32 DOSE LAST DOSE 07/25/2017 Prov:ASCENCIO,JERZY V. NEGATIVE STRIPPER 07/17/17 Levofloxacin* (Levaquin*) 750 Mg Tablet, 750 MG PO DAILY for 4 Days, #4 TAB STOP DATE 07/21/2017 Prov:JERZY ASCENCIO NP 07/17/17 Furosemide (Lasix) 20 Mg Tab, 20 MG PO DAILY, #30 TAB 1 Refill Prov:HAYLEY RANDLE 06/05/17 Trazodone Hcl* (Desyrel*) 50 Mg Tab, 25 MG PO HS for 14 Days, #14 TAB Prov:KRIS CLAYTON MD 06/02/17 Dexamethasone* (Decadron*) 2 Mg Tab, 2 MG PO BID for 30 Days, #60 TAB Prov:KRIS CLAYTON MD 06/02/17 Sennosides/Docusate Sodium (Senna Plus Tablet) 1 Each Tablet, 1 TAB PO AM for 30 Days, #30 TAB Prov:KRIS CLAYTON MD 06/02/17 Polyethylene Glycol* (Miralax*) 17 Gm Powd.pack, 17 GM PO DAILY for 30 Days, # 30 DOSE Prov:KRIS CLAYTON MD 06/02/17 Docusate Sodium (Dok) 100 Mg Capsule, 100 MG PO Q12H Y for CONSTIPATION for 30 Days, #60 CAP Prov:KRIS CLAYTON MD 06/02/17 Lorazepam* (Lorazepam*) 1 Mg Tablet, 1 MG PO Q6H Y for ANXIETY for 14 Days, #5 TAB Prov:KRIS CLAYTON MD 06/02/17 Hydromorphone Hcl* (Hydromorphone Hcl*) 4 Mg Tablet, 4 MG PO Q4H Y for PAIN for 14 Days, #60 TAB Prov:KRIS CLAYTON MD 06/02/17 Reported Medications Folic Acid* (Folic Acid*) 1 Mg Tablet, 1 MG PO DAILY, TAB 07/14/17 Ergocalciferol (Vitamin D2) (VITAMIN D2) 2,000 Unit Tablet, 2000 UNIT PO DAILY, TAB 07/14/17 Oxycodone Hcl* (IR) (Roxicodone*) 5 Mg Tab, 5 MG PO QID Y for PAIN, TAB 07/14/17 Discontinued Scripts Morphine Sulfate* (Ms Contin*) 15 Mg Tablet.sa, 15 MG PO Q12, #60 TAB Prov:HAYLEY RANDLE 06/05/17 Follow-up Plan 1.Follow up with (Oncologist) in 1 week 2. Follow-up with primary care physician in 1 week If you don't have one please let someone know, we can give you resources that may help you pick one. You may also call your insurance company to assign one to you. Review your medication list with your nurse before leaving and if you need new prescriptions please let your nurse know. I may have made changes to your home medications or given you new prescriptions, please let your primary doctor know as well. Stay compliant with your medications and report any side effects to your PCP or pharmacist. Return to the ER if you have any concerns and cannot reach your doctors or call your insurance company, they usually have a nurse that can help you. 3. Call 911 or go to the nearest emergency room if experiencing loss of consciousness, dizziness, chest pain, shortness of breath, vomiting/abdominal pain, speech difficulties, motor weakness or any unusual symptoms. OTHER ORDERS: HAND WASHING TO PREVENT SPREAD OF INFECTION Wet your hands with clean, running water (warm or cold), turn off the tap, and apply soap. Lather your hands by rubbing them together with the soap. Be sure to lather the backs of your hands, between your fingers, and under your nails. Scrub your hands for at least 20 seconds.Rinse your hands well under clean, running water. Dry your hands using a clean towel or air dry them, and use a paper towel to turn off the faucet, and then throw it away. Primary Care Provider Care Physician No Primary Home Meds Active Scripts Metronidazole (Flagyl) 500 Mg Tab, 500 MG PO Q8 for 8 Days, TAB Prov:GIORGI RIVERA 07/17/17 Dexamethasone* (Decadron*) 2 Mg Tab, 2 MG PO DAILY, #30 TAB Prov:ASECNCIO,JERZY V. NEGATIVE STRIPPER 07/17/17 [Vancomycin Oral Syringe] 50 MG/ML MANASA No Conflict Check, 125 MG PO Q6 for 8 Days, #32 DOSE LAST DOSE 07/25/2017 Prov:ASCENCIO,JERZY V. NEGATIVE STRIPPER 07/17/17 Levofloxacin* (Levaquin*) 750 Mg Tablet, 750 MG PO DAILY for 4 Days, #4 TAB STOP DATE 07/21/2017 Prov:ASCENCIO,JERZY V. NEGATIVE STRIPPER 07/17/17 Furosemide (Lasix) 20 Mg Tab, 20 MG PO DAILY, #30 TAB 1 Refill Prov:HAYLEY RANDLE. 06/05/17 Trazodone Hcl* (Desyrel*) 50 Mg Tab, 25 MG PO HS for 14 Days, #14 TAB Prov:KRIS CLAYTON MD 06/02/17 Sennosides/Docusate Sodium (Senna Plus Tablet) 1 Each Tablet, 1 TAB PO AM for 30 Days, #30 TAB Prov:KRIS CLAYTON MD 06/02/17 Polyethylene Glycol* (Miralax*) 17 Gm Powd.pack, 17 GM PO DAILY for 30 Days, # 30 DOSE Prov:KRIS CLAYTON MD 06/02/17 Docusate Sodium (Dok) 100 Mg Capsule, 100 MG PO Q12H Y for CONSTIPATION for 30 Days, #60 CAP Prov:KRIS CLAYTON MD 06/02/17 Lorazepam* (Lorazepam*) 1 Mg Tablet, 1 MG PO Q6H Y for ANXIETY for 14 Days, #5 TAB Prov:KRIS CLAYTON MD 06/02/17 Hydromorphone Hcl* (Hydromorphone Hcl*) 4 Mg Tablet, 4 MG PO Q4H Y for PAIN for 14 Days, #60 TAB Prov:KRIS CLAYTON MD 06/02/17 Reported Medications Folic Acid* (Folic Acid*) 1 Mg Tablet, 1 MG PO DAILY, TAB 07/14/17 Ergocalciferol (Vitamin D2) (VITAMIN D2) 2,000 Unit Tablet, 2000 UNIT PO DAILY, TAB 07/14/17 Oxycodone Hcl* (IR) (Roxicodone*) 5 Mg Tab, 5 MG PO QID Y for PAIN, TAB 07/14/17 Discontinued Scripts Dexamethasone* (Decadron*) 2 Mg Tab, 2 MG PO BID for 30 Days, #60 TAB Prov:KRIS CLAYTON MD 06/02/17 Morphine Sulfate* (Ms Contin*) 15 Mg Tablet.sa, 15 MG PO Q12, #60 TAB Prov:HAYLEY RANDLE S. 06/05/17 Follow-up Plan 1.Follow up with (Oncologist) in 1 week 2. Follow-up with primary care physician in 1 week If you don't have one please let someone know, we can give you resources that may help you pick one. You may also call your insurance company to assign one to you. Review your medication list with your nurse before leaving and if you need new prescriptions please let your nurse know. I may have made changes to your home medications or given you new prescriptions, please let your primary doctor know as well. Stay compliant with your medications and report any side effects to your PCP or pharmacist. Return to the ER if you have any concerns and cannot reach your doctors or call your insurance company, they usually have a nurse that can help you. 3. Call 911 or go to the nearest emergency room if experiencing loss of consciousness, dizziness, chest pain, shortness of breath, vomiting/abdominal pain, speech difficulties, motor weakness or any unusual symptoms. OTHER ORDERS: HAND WASHING TO PREVENT SPREAD OF INFECTION Wet your hands with clean, running water (warm or cold), turn off the tap, and apply soap. Lather your hands by rubbing them together with the soap. Be sure to lather the backs of your hands, between your fingers, and under your nails. Scrub your hands for at least 20 seconds.Rinse your hands well under clean, running water. Dry your hands using a clean towel or air dry them, and use a paper towel to turn off the faucet, and then throw it away. Primary Care Provider Care Physician JERZY Christopher NP Jul 18, 2017 11:34
[2017-07-18] MEDS: LORAZEPAM 1 MG TAB PO PRN (13:45)
--- NOTE | 2017-07-18 13:47 | CONS ---
Date/Time of Note Date/Time of Note DATE: 07/18/17 TIME: 13:46 Assessment/Plan Assessment/Plan Chief Complaint/Hosp Course Impression: # ER+/AK+/Her2 + metastatic breast cancer -s/p cycle 1 of Taxotere / Herceptin / Perjeta given July 06 -once patient has recovered from her C diff and has been discharged will resume next cycle -given she has stage IV disease, she will need therapy life long #Diarrhea -Pt is Cdiff positive -pt ok for discharge. she will be discharged with Flagyl 500mg TID #Large Bilateral Pleural Effusions -these are secondary to her metastatic breast cancer -s/p thoracentesis of both lungs -these should stop accumulating as quickly once she starts responding to chemotherapy #Lumbar spine compression fractures -s/p radiation -can stop decadron upon discharge #pain-continue current pain regimen -continue po dilaudid and norco for bone pain Problems: Consultation Date/Type/Reason Admit Date/Time Jul 14, 2017 at 14:22 Initial Consult Date 07/16/17 Type of Consultation: oncology Reason for Consultation metastatic breast cancer, cdiff Referring Provider: KRIS CLAYTON MD 24 HR Interval Summary Free Text/Dictation patient's diarrhea continues to improve Exam/Review of Systems Vital Signs Vitals Vital Signs Date Time Temp Pulse Resp B/P Pulse Ox O2 Delivery O2 Flow Rate FiO2 07/18/17 08:00 98.1 91 18 93/57 99 07/18/17 08:00 Nasal Cannula 2.0 Intake and Output 07/17/17 07/17/17 07/18/17 15:00 23:00 07:00 Intake Total 800 ml 500 ml Balance 800 ml 500 ml Exam Constitutional: alert, oriented Psych: anxiety, depression Head: normocephalic Eyes: nl conjunctiva ENMT: nl external ears & nose Neck: non-tender, supple Respiratory: diminished breath sounds Cardiovascular: regular rate and rhythm Gastrointestinal: soft Musculoskeletal: nl extremities to inspection Results Result Diagram: 07/17/1744407/17/17444 Medications Medications Current Medications Docusate Sodium (Colace) 100 mg Q12H PRN PO CONSTIPATION; Start 07/14/17 at 15 :00 Folic Acid (Folic Acid) 1 mg DAILY PO Last administered on 07/18/17t 08:45; Admin Dose 1 MG; Start 07/15/17 at 09:00 Furosemide (Lasix) 20 mg DAILY PO Last administered on 07/16/17 09:23; Admin Dose 20 MG; Start 07/15/17 at 09:00 Lorazepam (Ativan) 1 mg Q6H PRN PO ANXIETY Last administered on 07/18/17 13: 45; Admin Dose 1 MG; Start 07/14/17 at 15:00 Oxycodone HCl (Roxicodone) 5 mg QID PRN PO PAIN; Start 07/14/17 at 15:00 Polyethylene Glycol (Miralax) 17 gm DAILY PO ; Start 07/15/17 at 09:00 Trazodone HCl (Desyrel) 25 mg HS PO Last administered on 07/17/17 21:28; Admin Dose 25 MG; Start 07/14/17 at 21:00 Cholecalciferol (Vitamin D) 2,000 unit DAILY PO Last administered on 08:45; Admin Dose 2,000 UNIT; Start 07/15/17 at 09:00 Levofloxacin (Levaquin) 750 mg DAILY PO Last administered on 07/18/17 08:45; Admin Dose 750 MG; Start 07/14/17 at 15:00; Stop 07/21/17 at 14:59 Ondansetron HCl (Zofran Tab) 4 mg Q6H PRN PO NAUSEA AND/OR VOMITING; Start at 15:00 Ondansetron HCl (Zofran Inj) 4 mg Q6H PRN IV NAUSEA AND/OR VOMITING Last administered on 07/18/17 01:49; Admin Dose 4 MG; Start 07/14/17 at 15:00 Metoclopramide HCl (Reglan) 10 mg Q6H PRN IV NAUSEA AND/OR VOMITING Last administered on 07/17/17 22:26; Admin Dose 10 MG; Start 07/14/17 at 15:00 Acetaminophen (Tylenol Tab) 650 mg Q6H PRN PO PAIN LEVEL 1-3 OR FEVER; Start 07/14/17 at 15:00 Acetaminophen/ Hydrocodone Bitart ([place] (5/325)) 1 tab Q6H PRN PO MODERATE PAIN LEVEL 4-6 Last administered on 07/14/17 19:28; Admin Dose 1 TAB; Start 07/14/17 at 15:00 Enoxaparin Sodium (Lovenox) 40 mg DAILY SC Last administered on 07/18/17 09: 06; Admin Dose 40 MG; Start 07/15/17 at 09:00 Hydromorphone HCl (Dilaudid) 4 mg Q4H PRN PO PAIN Last administered on 08:25; Admin Dose 4 MG; Start 07/15/17 at 09:00 Hydromorphone HCl (Dilaudid) 1 mg Q3H PRN IV PAIN UNRELIEVED BY ORAL MED Last administered on 07/18/17 12:25; Admin Dose 1 MG; Start 07/15/17 at 10:00 Vancomycin HCl (Vancomycin Oral Syringe) 125 mg Q6 PO Last administered on 11:25; Admin Dose 125 MG; Start 07/15/17 at 14:00; Stop 07/25/17 at 13 :59 Dexamethasone (Decadron) 2 mg DAILY PO Last administered on 07/18/17 08:45; Admin Dose 2 MG; Start 07/17/17 at 09:00 CHARLOTTE DÍAZ M.D. Jul 18, 2017 13:47
[2017-07-18 14:00] VITALS: BP 114/84; RESP 18
== END 2017-07-18 16:25 | disposition home or self-care (01) | DRG 597 ==
LOC: E/R 08:51 → MS1 14:22
PROVIDERS: ADMIT Internal Medicine; ATTEND Internal Medicine
PROC: 0W993ZZ Drainage of Right Pleural Cavity, Percutaneous Approach (ICD-10-PCS; 2017-07-15)
PROC: 0W9B3ZZ Drainage of Left Pleural Cavity, Percutaneous Approach (ICD-10-PCS; principal; 2017-07-16)
DX: C50.911 Malignant neoplasm of unspecified site of right female breast (principal); J18.9 Pneumonia, unspecified organism; J91.0 Malignant pleural effusion; C78.2 Secondary malignant neoplasm of pleura; C77.9 Secondary and unspecified malignant neoplasm of lymph node, unspecified; A04.72 Enterocolitis due to Clostridium difficile, not specified as recurrent; M48.52XA Collapsed vertebra, not elsewhere classified, cervical region, initial encounter for fracture; C78.7 Secondary malignant neoplasm of liver and intrahepatic bile duct; M48.54XA Collapsed vertebra, not elsewhere classified, thoracic region, initial encounter for fracture; M48.56XA Collapsed vertebra, not elsewhere classified, lumbar region, initial encounter for fracture; C79.51 Secondary malignant neoplasm of bone; C79.81 Secondary malignant neoplasm of breast; Z88.0 Allergy status to penicillin; R74.0 Nonspecific elevation of levels of transaminase and lactic acid dehydrogenase [LDH]; Z92.3 Personal history of irradiation; Z87.891 Personal history of nicotine dependence
CPT/HCPCS: 32555; 36415; 71010; 80048; 80053; 81001; 81003; 82945; 83615; 83690; 84157; 85025; 85610; 85730; 87045; 87070; 87075; 87102; 87116; 87205; 87275; 87276; 87279; 87280; 87400; 88104; 88305; 88313; 89051; 96374; 96375; 96376; J1170; J1650; J2405; J2765; J7030

== ENCOUNTER 2017-08-27 00:29 | Inpatient (IN) | END 2017-08-28 14:05 | disposition home or self-care (01) | DRG 948 ==

== ENCOUNTER 2017-08-31 04:48 | Emergency (ER) | END 2017-08-31 09:00 | disposition home or self-care (01) ==

== ENCOUNTER 2017-09-18 14:48 | Inpatient (IN) | END 2017-09-27 13:20 | disposition home or self-care (01) | DRG 194 ==

== ENCOUNTER 2017-10-01 22:01 | Inpatient (IN) | END 2017-10-12 10:30 | disposition home or self-care (01) | DRG 186 ==

== ENCOUNTER 2017-10-14 19:55 | Inpatient (IN) | END 2017-10-28 16:15 | disposition home or self-care (01) | DRG 872 ==

== ENCOUNTER 2017-10-29 17:04 | Inpatient (IN) | END 2017-11-13 16:30 | disposition home or self-care (01) | DRG 101 ==

== ENCOUNTER 2017-11-14 10:55 | Emergency (ER) | END 2017-11-14 17:39 | disposition home or self-care (01) ==

== ENCOUNTER 2017-11-29 14:13 | Inpatient (IN) | END 2017-12-05 14:55 | disposition home or self-care (01) | DRG 55 ==

== ENCOUNTER 2018-01-17 12:45 | Emergency (ER) | END 2018-01-17 16:20 | disposition home or self-care (01) ==

== ENCOUNTER 2018-03-23 14:01 | Inpatient (IN) | END 2018-03-24 19:10 | disposition home or self-care (01) | DRG 372 ==

== ENCOUNTER 2018-03-25 13:20 | Emergency (ER) | END 2018-03-25 18:28 | disposition home or self-care (01) ==

== ENCOUNTER 2018-03-27 15:57 | Emergency (ER) | END 2018-03-27 20:21 | disposition short-term general hospital (02) ==

== ENCOUNTER 2018-05-07 17:57 | Inpatient (IN) | END 2018-05-20 16:00 | disposition home health service (06) | DRG 560 ==

== ENCOUNTER 2018-05-27 14:42 | Emergency (ER) | END 2018-05-28 | disposition short-term general hospital (02) ==